=== PATIENT | female | born 1980 | race Caucasian/White ===

== ENCOUNTER 2020-06-27 17:23 | Inpatient (IN) | payer MEDICAID, SELFPAY ==
[2020-06-27 17:39] VITALS: BP 118/82; BP 137/65; PULSE 101; PULSE 134; RESP 16; TEMP 37.3; O2SAT 100; O2SAT 99; BMI 36.8
--- NOTE | 2020-06-27 18:42 | PC.NURSE ---
pt ambulated with steady gait over to the bathroom, provided urine sample and changed over in hospital attire. 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 pt denies pain at this time, pt denies drug use, pt did state having hx of seizures but is not currently on any medications for seizures, last seizure about 9 years ago per pt.
[2020-06-27 18:46] LABS: MANUAL DIFF FLAG NO
--- NOTE | 2020-06-27 18:48 | ECG_ITS ---
Test Reason : OVERDOSE Blood Pressure : / mmHG Vent. Rate : 078 BPM Atrial Rate : 078 BPM P-R Int : 166 ms QRS Dur : 086 ms QT Int : 408 ms P-R-T Axes : 063 052 041 degrees QTc Int : 465 ms Normal sinus rhythm Possible Left atrial enlargement Borderline ECG When compared with ECG of 06-AUG-2016 20:44, No significant change was found Referred By: Anyi Méndez Electronically Signed By:GRISELDA BELLE MD
--- NOTE | 2020-06-27 18:54 | ED.OVERDOSE ---
HPI - Overdose General Chief Complaint: Overdose <JACEK Reid Last Filed: 06/27/20 20:59> Stated Complaint: ?OVERDOSE, 4MG NARCAN <JACEK Reid Last Filed: 06/27/20 20:59> Time Seen by Provider: 06/27/20 18:01 <JACEK Reid - Last Filed: 06/27/20 20:59> Source: patient <JACEK Reid Last Filed: 06/27/20 20:59> Mode of arrival: EMS <JACEK Reid Last Filed: 06/27/20 20:59> History of Present Illness HPI Narrative: Patient is a 39-year-old female who was brought in via EMS after her children called 911 because she was found down in her bedroom. EMS administered Narcan which patient responded to and woke up. Patient states she took 2 Tylenol around 04:00 o'clock then was dancing to you to with her children and the next thing she knew she was on her bedroom floor. She does have a very remote seizure history, has not had one in 9 years and takes no daily seizure medications and no seizure activity was noted by EMS. 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 Today, she denies she has any pain she denies falling and hitting her head, denies headache, lightheadedness, dizziness, chest pain, shortness of breath or vision problems. She denies using any illicit drugs or alcohol. <JACEK Reid - Last Filed: 06/27/20 20:59> Related Data Allergies/Adverse Reactions: Allergies Allergy/AdvReac Type Severity Reaction Status Date / Time No Known Allergies Allergy Verified 06/27/20 17:47 [No Known Allergies*] <JACEK Reid Last Filed: 06/27/20 20:59> Review of Systems Review of Systems: Constitutional: No Weight loss, No Fever, No Chills, No Night Sweats, No Fatigue, No Malaise ENT/Mouth: No Hearing loss, No Ear Pain, No Nasal Congestion, No Sinus Pain, No Hoarseness, No sore throat, No Rhinorrhea, No Swallowing Difficulty Eyes: No Eye Pain, No Swelling, No Redness, No Foreign Body, No Discharge, No Vision Changes Cardiovascular: No Chest Pain, No SOB, No Dyspnea on Exertion, No Orthopnea, No Edema, No Palpitations Respiratory: No Cough, No Sputum, No Wheezing, No Smoke Exposure, No Dyspnea Gastrointestinal: No Nausea, No Vomiting, No Diarrhea, No Constipation, No abdominal Pain, No Hematochezia, No Melena Genitourinary: no irregular bleeding, No Dysuria, No Urinary Frequency, No Hematuria, No Urinary Incontinence, No Urgency, No Flank Pain, No Urinary Flow Changes, No Hesitancy Musculoskeletal: No joint pain, No Myalgias, No Joint Swelling Skin: No Skin Lesions, No rash Neuro: No Weakness, No Numbness, No Paresthesias, + Loss of Consciousness, No Dizziness, No Headache Psych: No Anxiety/Panic, No Depression, No SI/HI/AH/VH, No Social Issues, <JACEK Reid - Last Filed: 06/27/20 20:59> Yes all other systems are reviewed and are negative <JACEK Reid - Last Filed: 06/27/20 20:59> [facility] Past Medical History Attestation statement: The following information was validated with the patient. <JACEK Reid - Last Filed: 06/27/20 20:59> Medical History: Medical History Seizure Stroke TBI (traumatic brain injury) <JACEK Reid - Last Filed: 06/27/20 20:59> Surgical History: Surgical History History of <JACEK Reid - Last Filed: 06/27/20 20:59> Social History Social History: Social History Smoking Status: Light tobacco smoker Use of substances other than those prescribed or required for medical reasons: No Advance Directives: No Advance Directives Information Provided: No <JACEK Reid - Last Filed: 06/27/20 20:59> Physical Exam Vital Signs: Vital Signs: Vital Signs Temp Pulse Resp BP Pulse Ox 06/27/20 20:00 102 H 16 137/68 98 06/27/20 17:39 99.2 F 101 H 16 137/65 99 Body Mass Index 36.8 <JACEK Reid - Last Filed: 06/27/20 20:59> Vital Signs: Vital Signs Temp Pulse Resp BP Pulse Ox 06/27/20 20:00 102 H 16 137/68 98 06/27/20 17:39 99.2 F 101 H 16 137/65 99 Body Mass Index 36.8 <Fredy Taylor MD - Last Filed: 06/27/20 21:34> Const: General: cooperative, healthy appearing, comfortable, no acute distress and well developed <JACEK Reid - Last Filed: 06/27/20 20:59> Orientation/consciousness: patient oriented x3 <JACEK Reid - Last Filed: 06/27/20 20:59> Limitations: other limitations (Right-sided weakness) <JACEK Reid - Last Filed: 06/27/20 20:59> HENMT: Head: Yes normal to inspection, Yes No palpable skull fracture present, Yes normocephalic, Yes atraumatic, No abrasion, No Holloway's sign, No contusion, No laceration, No occipital foramen tenderness and No raccoon eyes <JACEK Reid - Last Filed: 06/27/20 20:59> Ears: hearing grossly normal bilaterally and external ears normal <JACEK Reid - Last Filed: 06/27/20 20:59> General nose exam: Normal external nose present <JACEK Reid Last Filed: 06/27/20 20:59> Face and sinus: Yes normal facial exam <JACEK Reid - Last Filed: 06/27/20 20:59> Mouth: Normal oral and palatal mucosa present <JACEK Reid - Last Filed: 06/27/20 20:59> Eyes: General: appearance normal, both eyes and all related structures <Anyi Méndez AR - Last Filed: 06/27/20 20:59> Pupils: Equal, round and reactive pupils present <Anyi Méndez AR - Last Filed: 06/27/20 20:59> EOM: EOMs intact bilaterally <Anyi Méndez PA - Last Filed: 06/27/20 20:59> Neck: Neck: Yes normal visual inspection, Yes full ROM, Yes trachea midline and Yes supple <Anyi Méndez AR - Last Filed: 06/27/20 20:59> Chest: Chest palpation & inspection: normal inspection of the chest <Anyi Méndez AR - Last Filed: 06/27/20 20:59> Resp: Effort & Inspection: normal respiratory effort and able to speak in complete sentences <Anyi Méndez AR - Last Filed: 06/27/20 20:59> Auscultation: clear to auscultation bilaterally, no crackles, no rales, no rhonchi and wheezes <Anyi Méndez AR - Last Filed: 06/27/20 20:59> Cardio: Rate: regular rate <Anyi Méndez AR - Last Filed: 06/27/20 20:59> Rhythm: regular rhythm <Anyi Méndez AR - Last Filed: 06/27/20 20:59> Heart sounds: normal S1 and S2 <Anyi Méndez AR - Last Filed: 06/27/20 20:59> GI: Inspection: Yes normal to inspection <Anyi Méndez AR - Last Filed: 06/27/20 20:59> Palpation (GI): Soft to palpation and nontender <Anyi Méndez AR - Last Filed: 06/27/20 20:59> Skin: General skin exam: no rashes or lesions noted <Anyi Méndez AR - Last Filed: 06/27/20 20:59> Neuro: General: patient oriented x3 <Anyi Méndez [facility] Last Filed: 06/27/20 20:59> Cranial nerves: Yes Equal, round and reactive pupils present <AnyiJACEK Pedersen - Last Filed: 06/27/20 20:59> Extrem: General: Yes normal to inspection <JACEK Reid - Last Filed: 06/27/20 20:59> Course Course Course Narrative: 39-year-old female who was found down at home, BIBRolo, was given Narcan, responded to it and woke up, does have a remote history of TBI, with residual right-sided weakness and seizure disorder, last one 9 years ago, not on any anti seizure medications Has no complaints or pain. Will get labs, EKG. Labs reveal CPK of 1938 and white blood cell count 16, H&H is 8.1 and 29.3. Despite heart rate being 101 upon arrival, this does not appear to be sepsis, her heart rate currently is 66. Will give 2 L of fluid and read draw CPK, will also get head CT. Upon hospitalist speaking to the patient, she admitted to urinating herself when she woke up, likely seizure, will give 500 mg Keppra and have neuro follow up. Likely admission. Head CT pending, signing out pt to Peyton Bonner PA-C. <JACEK Reid - Last Filed: 06/27/20 20:59> MDM - Overdose Lab Data Attestation: I reviewed the patient's lab results. <JACEK Reid - Last Filed: 06/27/20 20:59> Result diagrams: : 06/27/20 18:40 06/27/20 18:40 <JACEK Reid Last Filed: 06/27/20 20:59> Labs: Lab Results 06/27/20 06/27/20 06/27/20 Range/Units 18:40 18:40 18:40 WBC 16.0 H (4.8-10.8) X10*3/uL RBC 4.12 L (4.20-5.50) X10*6/uL Hgb 8.1 L (12.0-16.0) g/dl Hct 29.3 L (37-47) % MCV 71.1 L (80-98) fL MCH 19.7 L (27.0-33.0) pg MCHC 27.6 L (31.0-35.0) g/dl RDW 18.6 H (11.0-16.0) % Plt Count 405 H (160-400) X10*3/uL MPV 10.0 (9.4-12.3) fL Immature Gran % (Auto) 0.6 H (0.0-0.4) % Neut % (Auto) 87.5 H (45-73) % Lymph % (Auto) 5.5 L (20-40) % Travis % (Auto) 5.3 (2-11) % Eos % (Auto) 0.9 (0-4) % Baso % (Auto) 0.2 (0-2) % Lymph # (Auto) 0.9 L (1.2-4.9) X10*3/uL Travis # (Auto) 0.8 (0.1-1.2) X10*3/uL Eos # (Auto) 0.2 (0.0-0.4) X10*3/uL Baso # (Auto) 0.0 (0.0-0.2) X10*3/uL Abs Immat Gran (auto) 0.10 H (0.00-0.03) X10*3/uL Absolute Neuts (auto) 14.0 H (2.0-8.3) X10*3/uL Absolute Nucleated RBC 0.000 (0.0-0.012) X10*3/uL Nucleated RBC % (auto) 0.0 (0.0-0.2) /100WBC Sodium 138 (135-145) mmol/L Potassium 4.2 (3.3-5.1) mmol/l Chloride 102 (96-108) mmol/L Carbon Dioxide 27 (22-29) mmol/L Anion Gap 13 (12-20) BUN 15 (9-16) mg/dL Creatinine 0.78 (0.5-1.4) mg/dL Estim Creat Clear Calc 104.7 Estimated GFR > 60 Random Glucose 73 (60-115) mg/dL Calcium 8.8 (8.4-10.2) mg/dL Total Bilirubin 0.5 (0.0-1.0) mg/dL AST 67 H (5-31) U/L ALT 24 (0-31) U/L Alkaline Phosphatase 82 (39-117) U/L Total Creatine Kinase 1938 H (26-140) U/L Total Protein 7.5 (6.5-8.0) g/dL Albumin 4.3 (3.5-5.0) g/dL Urine Test (NEGATIVE) Salicylates < 5.0 L (15-30) mg/dL Urine Opiates Screen POSITIVE H (Not Detect) Acetaminophen < 1 (<30) mcg/mL Ur Barbiturates Screen Not Detected (Not Detect) Ur Phencyclidine Scrn Not Detected (Not Detect) Ur Amphetamines Screen Not Detected (Not Detect) U Benzodiazepines Scrn Not Detected (Not Detect) Urine Cocaine Screen Not Detected (Not Detect) U Marijuana (THC) Screen Not Detected (Not Detect) Ethyl Alcohol mg/dL 06/27/20 06/27/20 Range/Units 18:40 18:40 WBC (4.8-10.8) X10*3/uL RBC (4.20-5.50) X10*6/uL Hgb (12.0-16.0) g/dl Hct (37-47) % MCV (80-98) fL MCH (27.0-33.0) pg MCHC (31.0-35.0) g/dl RDW (11.0-16.0) % Plt Count (160-400) X10*3/uL MPV (9.4-12.3) fL Immature Gran % (Auto) (0.0-0.4) % Neut % (Auto) (45-73) % Lymph % (Auto) (20-40) % Travis % (Auto) (2-11) % Eos % (Auto) (0-4) % Baso % (Auto) (0-2) % Lymph # (Auto) (1.2-4.9) X10*3/uL Travis # (Auto) (0.1-1.2) X10*3/uL Eos # (Auto) (0.0-0.4) X10*3/uL Baso # (Auto) (0.0-0.2) X10*3/uL Abs Immat Gran (auto) (0.00-0.03) X10*3/uL Absolute Neuts (auto) (2.0-8.3) X10*3/uL Absolute Nucleated RBC (0.0-0.012) X10*3/uL Nucleated RBC % (auto) (0.0-0.2) /100WBC Sodium (135-145) mmol/L Potassium (3.3-5.1) mmol/l Chloride (96-108) mmol/L Carbon Dioxide (22-29) mmol/L Anion Gap (12-20) BUN (9-16) mg/dL Creatinine (0.5-1.4) mg/dL Estim Creat Clear Calc Estimated GFR Random Glucose (60-115) mg/dL Calcium (8.4-10.2) mg/dL Total Bilirubin (0.0-1.0) mg/dL AST (5-31) U/L ALT (0-31) U/L Alkaline Phosphatase (39-117) U/L Total Creatine Kinase (26-140) U/L Total Protein (6.5-8.0) g/dL Albumin (3.5-5.0) g/dL Urine Test NEGATIVE (NEGATIVE) Salicylates (15-30) mg/dL Urine Opiates Screen (Not Detect) Acetaminophen (<30) mcg/mL Ur Barbiturates Screen (Not Detect) Ur Phencyclidine Scrn (Not Detect) Ur Amphetamines Screen (Not Detect) U Benzodiazepines Scrn (Not Detect) Urine Cocaine Screen (Not Detect) U Marijuana (THC) Screen (Not Detect) Ethyl Alcohol < 10 mg/dL <JACEK Reid - Last Filed: 06/27/20 20:59> Lab Results 06/27/20 06/27/20 06/27/20 Range/Units 18:40 18:40 18:40 WBC 16.0 H (4.8-10.8) X10*3/uL RBC 4.12 L (4.20-5.50) X10*6/uL Hgb 8.1 L (12.0-16.0) g/dl Hct 29.3 L (37-47) % MCV 71.1 L (80-98) fL MCH 19.7 L (27.0-33.0) pg MCHC 27.6 L (31.0-35.0) g/dl RDW 18.6 H (11.0-16.0) % Plt Count 405 H (160-400) X10*3/uL MPV 10.0 (9.4-12.3) fL Immature Gran % (Auto) 0.6 H (0.0-0.4) % Neut % (Auto) 87.5 H (45-73) % Lymph % (Auto) 5.5 L (20-40) % Travis % (Auto) 5.3 (2-11) % Eos % (Auto) 0.9 (0-4) % Baso % (Auto) 0.2 (0-2) % Lymph # (Auto) 0.9 L (1.2-4.9) X10*3/uL Travis # (Auto) 0.8 (0.1-1.2) X10*3/uL Eos # (Auto) 0.2 (0.0-0.4) X10*3/uL Baso # (Auto) 0.0 (0.0-0.2) X10*3/uL Abs Immat Gran (auto) 0.10 H (0.00-0.03) X10*3/uL Absolute Neuts (auto) 14.0 H (2.0-8.3) X10*3/uL Absolute Nucleated RBC 0.000 (0.0-0.012) X10*3/uL Nucleated RBC % (auto) 0.0 (0.0-0.2) /100WBC Sodium 138 (135-145) mmol/L Potassium 4.2 (3.3-5.1) mmol/l Chloride 102 (96-108) mmol/L Carbon Dioxide 27 (22-29) mmol/L Anion Gap 13 (12-20) BUN 15 (9-16) mg/dL Creatinine 0.78 (0.5-1.4) mg/dL Estim Creat Clear Calc 104.7 Estimated GFR > 60 Random Glucose 73 (60-115) mg/dL Calcium 8.8 (8.4-10.2) mg/dL Total Bilirubin 0.5 (0.0-1.0) mg/dL AST 67 H (5-31) U/L ALT 24 (0-31) U/L Alkaline Phosphatase 82 (39-117) U/L Total Creatine Kinase 1938 H (26-140) U/L Total Protein 7.5 (6.5-8.0) g/dL Albumin 4.3 (3.5-5.0) g/dL Urine Test (NEGATIVE) Salicylates < 5.0 L (15-30) mg/dL Urine Opiates Screen POSITIVE H (Not Detect) Acetaminophen < 1 (<30) mcg/mL Ur Barbiturates Screen Not Detected (Not Detect) Ur Phencyclidine Scrn Not Detected (Not Detect) Ur Amphetamines Screen Not Detected (Not Detect) U Benzodiazepines Scrn Not Detected (Not Detect) Urine Cocaine Screen Not Detected (Not Detect) U Marijuana (THC) Screen Not Detected (Not Detect) Ethyl Alcohol mg/dL 06/27/20 06/27/20 Range/Units 18:40 18:40 WBC (4.8-10.8) X10*3/uL RBC (4.20-5.50) X10*6/uL Hgb (12.0-16.0) g/dl Hct (37-47) % MCV (80-98) fL MCH (27.0-33.0) pg MCHC (31.0-35.0) g/dl RDW (11.0-16.0) % Plt Count (160-400) X10*3/uL MPV (9.4-12.3) fL Immature Gran % (Auto) (0.0-0.4) % Neut % (Auto) (45-73) % Lymph % (Auto) (20-40) % Travis % (Auto) (2-11) % Eos % (Auto) (0-4) % Baso % (Auto) (0-2) % Lymph # (Auto) (1.2-4.9) X10*3/uL Travis # (Auto) (0.1-1.2) X10*3/uL Eos # (Auto) (0.0-0.4) X10*3/uL Baso # (Auto) (0.0-0.2) X10*3/uL Abs Immat Gran (auto) (0.00-0.03) X10*3/uL Absolute Neuts (auto) (2.0-8.3) X10*3/uL Absolute Nucleated RBC (0.0-0.012) X10*3/uL Nucleated RBC % (auto) (0.0-0.2) /100WBC Sodium (135-145) mmol/L Potassium (3.3-5.1) mmol/l Chloride (96-108) mmol/L Carbon Dioxide (22-29) mmol/L Anion Gap (12-20) BUN (9-16) mg/dL Creatinine (0.5-1.4) mg/dL Estim Creat Clear Calc Estimated GFR Random Glucose (60-115) mg/dL Calcium (8.4-10.2) mg/dL Total Bilirubin (0.0-1.0) mg/dL AST (5-31) U/L ALT (0-31) U/L Alkaline Phosphatase (39-117) U/L Total Creatine Kinase (26-140) U/L Total Protein (6.5-8.0) g/dL Albumin (3.5-5.0) g/dL Urine Test NEGATIVE (NEGATIVE) Salicylates (15-30) mg/dL Urine Opiates Screen (Not Detect) Acetaminophen (<30) mcg/mL Ur Barbiturates Screen (Not Detect) Ur Phencyclidine Scrn (Not Detect) Ur Amphetamines Screen (Not Detect) U Benzodiazepines Scrn (Not Detect) Urine Cocaine Screen (Not Detect) U Marijuana (THC) Screen (Not Detect) Ethyl Alcohol < 10 mg/dL <Fredy Taylor MD - Last Filed: 06/27/20 21:34> ECG Data Attestation: I personally reviewed and interpreted this ECG as follows: <JACEK Reid - Last Filed: 06/27/20 20:59> ECG interpretation date: 06/27/20 <JACEK Reid - Last Filed: 06/27/20 20:59> ECG interpretation time: 20:58 <JACEK Reid - Last Filed: 06/27/20 20:59> Prior ECG tracings: not available for review <JACEK Reid - Last Filed: 06/27/20 20:59> Interpretation: NSR 78bpm, qrs 86ms, QTc 465, Dr Taylor signed off on it <JACEK Reid - Last Filed: 06/27/20 20:59> Discharge Plan Discharge Clinical Impression: Seizure Rhabdomyolysis Qualifiers: Rhabdomyolysis type: traumatic Encounter type: initial encounter Qualified Code(s): T79.6XXA - Traumatic ischemia of muscle, initial encounter <AJCEK Reid - Last Filed: 06/27/20 20:59> Patient Disposition: Admitted As Inpatient <JACEK Reid - Last Filed: 06/27/20 20:59>
[2020-06-27 19:07] LABS: Basophils Percent Auto 0.2 % (0-2); Eosinophils Absolute Auto 0.2 X10*3/uL (0.0-0.4); Eosinophils Percent Auto 0.9 % (0-4); Hematocrit 29.3 % (37-47); Hemoglobin 8.1 g/dl (12.0-16.0); Imm Gran Pct Auto 0.6 % (0.0-0.4); Lymphocytes Absolute Auto 0.9 X10*3/uL (1.2-4.9); Lymphocytes Percent Auto 5.5 % (20-40); Mean Corpuscular HGB Conc 27.6 g/dl (31.0-35.0); Mean Corpuscular Hemoglobin 19.7 pg (27.0-33.0); Mean Corpuscular Volume 71.1 fL (80-98); Monocytes Absolute Auto 0.8 X10*3/uL (0.1-1.2); Monocytes Percent Auto 5.3 % (2-11); Neutrophils Percent Auto 87.5 % (45-73); Platelet Count 405 X10*3/uL (160-400); Red Blood Count 4.12 X10*6/uL (4.20-5.50); Red Cell Distribution Width 18.6 % (11.0-16.0)
[2020-06-27 19:09] LABS: Ethanol < 10 mg/dL
[2020-06-27 19:12] LABS: Amphetamine Screen Urine Not Detected (Not Detect); Barbiturates, Urine Not Detected (Not Detect); Benzodiazepines Screen Urine Not Detected (Not Detect); Cannabinoid Screen Urine Not Detected (Not Detect); Cocaine Screen Urine Not Detected (Not Detect); Opiate Screen Urine POSITIVE (Not Detect); Phencyclidine Screen Urine Not Detected (Not Detect)
[2020-06-27 19:14] LABS: Acetaminophen LAB < 1 mcg/mL (<30); Alanine Aminotransferase 24 U/L (0-31); Albumin Level 4.3 g/dL (3.5-5.0); Alkaline Phosphatase 82 U/L (39-117); Anion Gap 13 (12-20); Aspartate Amino Transferase 67 U/L (5-31); Bilirubin Total 0.5 mg/dL (0.0-1.0); Blood Urea Nitrogen 15 mg/dL (9-16); Calcium 8.8 mg/dL (8.4-10.2); Carbon Dioxide 27 mmol/L (22-29); Chloride 102 mmol/L (96-108); Creatinine Clr Calc Pharmacy 104.7; Estimated Glomerular Filt Rate > 60; Glucose Random 73 mg/dL (60-115); Potassium 4.2 mmol/l (3.3-5.1); Salicylate < 5.0 mg/dL (15-30); Sodium 138 mmol/L (135-145); Total Protein 7.5 g/dL (6.5-8.0)
--- NOTE | 2020-06-27 19:37 | PC.NURSE ---
Pt resting quietly in stretcher and denies any complaints at this time. Pt awake, alert, calm and cooperative. Respirations easy, n/l.
[2020-06-27 20:00] VITALS: BP 137/68; PULSE 102; RESP 16; O2SAT 98
--- NOTE | 2020-06-27 20:10 | CT_ITS ---
EXAMINATION: CT HEAD WITHOUT CONTRAST CLINICAL INFORMATION: Loss of consciousness COMPARISON: None TECHNIQUE: Contiguous axial imaging was performed from the skull base to vertex without intravenous administration of contrast. This CT examination was performed using dose optimization techniques as appropriate, variously including the following: *Automated exposure control *Adjustment of mA and/or kV according to patient size (this includes techniques or standardized protocols for targeted exams where dose is matched to indication/reason for exam; i.e. extremities or head) *Use of iterative reconstruction technique DLP: 737 mGy-cm FINDINGS: There is focal encephalomalacia in the left insular cortex and adjacent white matter tracts. There is compensatory dilatation of the left lateral ventricle. There is no evidence of acute intracranial hemorrhage or acute territorial infarction. No abnormal mass effect or midline shift is seen. Lundberg to white matter differentiation is well preserved. No extra-axial fluid collections are identified. The osseous structures and soft tissues are normal. The mastoid air cells and visualized portions of the paranasal sinuses are well aerated. 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 There is no acute intracranial abnormality.
[2020-06-27] MEDS: 0.9 % Sodium Chloride 1,000 ML 999 ML IVCONT ×2 (20:41→23:07)
[2020-06-27 20:48] LABS: UPreg QC Valid YES; Urine Pregnancy NEGATIVE (NEGATIVE)
[2020-06-27] MEDS: levETIRAcetam in NaCl (iso-os) 500 MG/100 ML PIGGYBACK 400 MG IV (21:12)
--- NOTE | 2020-06-27 21:20 | PC.NURSE ---
PT MEDICATED PER EMAR.
--- NOTE | 2020-06-27 21:46 | PC.NURSE ---
SPOKE WITH PHARMACY AND THEY WILL CALL PT'S PHARMACY IN AM REGARDING SEIZURE MEDS.
--- NOTE | 2020-06-27 22:38 | PC.NURSE ---
[facility] IN ROOM WITH PT.
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
--- NOTE | 2020-06-27 23:42 | PC.NURSE ---
FLOOR UNABLE TO TAKE REPORT, WILL RETURN CALL.
--- NOTE | 2020-06-27 23:52 | PC.NURSE ---
report to INOCENCIA Morales. Pt to floor in [facility].
[2020-06-28] VITALS (7 sets, daily range): BP systolic 113–160; BP diastolic 49–78; PULSE 56–95; RESP 16–19; TEMP 35.8–37.1; O2SAT 92–99; BMI 36.8
--- NOTE | 2020-06-28 | CT_ITS ---
EXAMINATION: CT ANGIOGRAM HEAD CT ANGIOGRAM NECK CLINICAL INFORMATION: Syncope. Loss of consciousness. COMPARISON: CT head from 06/27/2020. TECHNIQUE: Initial noncontrast chief operator hydroformer imaging of the head and neck was performed. Noncontrast head CT was also performed. Test bolus sequences followed by intravenous administration 70 mL of Omnipaque 350. Helical imaging was performed in the axial plane from the aortic arch to the skull vertex. Delayed postcontrast imaging of the head was also performed. The data was processed at the chief ultrasound technologist's workstation for generation of MIP sequences. Angled MIPs and volume rendered reformatted images were also generated at an offline 3D workstation. Stenoses are assessed in accordance with NASCET criteria unless otherwise indicated. DLP: 2598 mGy-cm FINDINGS: CT Head: There is no evidence of acute intracranial hemorrhage or edematous territorial infarction. Chronic appearing encephalomalacia of the left insula, lentiform nucleus, and kearns radiata. There is no additional abnormal attenuation within the brain parenchyma. No new loss of kat-white matter differentiation. Ex vacuo dilatation of the left lateral ventricle. Otherwise, the ventricles are normal in size and configuration. No evidence for obstructive hydrocephalus. Minimal leftward midline shift (0.1 cm). No abnormal mass effect. No extra-axial fluid collections. No pathologic intra-axial enhancement or regional oligemia. No acute soft tissue or osseous abnormalities. Multiple periapical lucencies and regions of sclerosis associated with the mandibular and maxillary teeth. Moderate mucosal thickening of the paranasal sinuses. Mucous retention cyst within the right maxillary sinus. The mastoid air cells and middle ear cavities remain well aerated. CT Neck: Mild generalized enlargement of the thyroid gland. The remaining cervical soft tissues are within normal limits. Straightening of the normal cervical lordosis. Moderate degenerative disc disease at C5-C6 and C6-C7. CT Upper Chest: The visualized lung apices and upper mediastinum are within normal limits. Neck CTA: Aortic Arch: Normal contour and caliber. Classic 3 vessel branching pattern of the aortic arch. Great Vessel Origins: No significant stenosis of the branch origins. Right Common Carotid Artery: Normal opacification without focal stenosis or occlusion. Cervical Right Internal Carotid Artery: Normal opacification without focal stenosis or occlusion. Left Common Carotid Artery: Normal opacification without focal stenosis or occlusion. Cervical Left Internal Carotid Artery: The left ICA is diminutive relative to the right opacifies normally without occlusion. Cervical Right Vertebral Artery: Normal opacification without focal stenosis or occlusion. Cervical Left Vertebral Artery: Dominant. Normal opacification without focal stenosis or occlusion. Brain CTA: Intracranial Internal Carotid Arteries: The left ICA is diminutive with concomitant small caliber of the carotid canal. There are coarse calcifications of the cavernous segment of the left ICA. There remains at least partial opacification of diminutive paraophthalmic and supraclinoid segments of the left ICA. Normal contrast opacification of the petrous, cavernous, paraophthalmic, and supraclinoid segments of the right ICA without focal stenosis. Right Anterior Cerebral Artery: Normal A1 segment. Normal opacification of the distal segments of the ÓSCAR. Left Anterior Cerebral Artery: The A1 segment is diminutive. Normal opacification of the distal segments of the ÓSCAR. Anterior Communicating Artery: Normal. Right Middle Cerebral Artery: Normal opacification of the M1 segment of the MCA without focal stenosis or occlusion. Normal arborization of the distal segments. Left Middle Cerebral Artery: The M1 segment is diminutive on the left with prominent leptomeningeal collateralization. The distal MCA branches may be slightly diminutive relative to the right but are otherwise relatively well opacified. Right Vertebral Artery: Normal opacification of the V4 segment. Normal opacification of the proximal segments of the posterior inferior cerebellar artery. Left Vertebral Artery: Normal opacification of the V4 segment. The posterior inferior cerebellar artery is not well opacified; however, there is no CT evidence of acute occlusion. Basilar Artery: Normal opacification without focal stenosis or occlusion. Normal appearance of the proximal superior cerebellar arteries. There is a mildly irregular 0.2 cm excrescence arising from the right anterior aspect of the basilar tip that projects superiorly and anteriorly (image [id number]). Right Posterior Cerebral Artery: The P1 segment is diminutive. origin of the LABORER STORES with robust opacification of the posterior communicating artery. Normal opacification of the distal segments of the LABORER ST[employer]ES. Left Posterior Cerebral Artery: Normal P1 segment. Normal opacification of the distal segments of the LABORER ST[employer]ES. Normal opacification of the superior sagittal, straight, transverse, and sigmoid sinuses. CT/CT angio head neck IMPRESSION: 1. Chronic appearing infarct of the left-sided insula, lentiform nucleus, and kearns radiata. No evidence of acute intracranial hemorrhage or edematous territorial infarction. 2. There appears to be long-standing diminution of the left ICA (concordant decreased caliber of the carotid canal). Moderate calcification of the cavernous segment of the left ICA without occlusion. The paraophthalmic and supraclinoid segments of the left ICA are diminutive opacified. Furthermore, the M1 segment of the left MCA is diminutive with prominent leptomeningeal collateral formation. The etiology of these changes is nonspecific but presents in a left-sided moyamoya-like pattern. 3. 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 Of note, there is origin of the right posterior cerebral artery. It is possible that this excrescence represents an infundibulum; however, the remainder of the P1 segment of the right LAB[employer]ER [employer]ES is diminutive. 4. Otherwise, CTA of the head and neck without proximal occlusion or flow-limiting stenosis. 5. Mild generalized prominence of the thyroid gland. Recommend correlation with thyroid function testing. Thyroid ultrasound may be considered if clinically indicated. 6. Mandibular and maxillary odontogenic disease.
[2020-06-28] MEDS: Lactated Ringers 1,000 ML 100 ML IVCONT ×3 (00:52→19:55)
[2020-06-28] MEDS: Enoxaparin Sodium 40 MG/0.4 ML SYRINGE SUBCUT (00:52)
[2020-06-28] MEDS: 0.9 % Sodium Chloride Flush 3 ML SYRINGE IVFLUSH ×2 (00:53→08:11)
[2020-06-28 01:08] LABS: SARS COV2 PCR INHOUSE NEGATIVE (Negative)
[2020-06-28] MEDS: Flu Vacc QS2020-21(6mos up)/PF 0.5 ML SYRINGE IM (01:16)
[2020-06-28 01:24] LABS: Ferritin 3 ng/mL (10-250)
[2020-06-28 02:30] LABS: Appearance Urine CLEAR; Color Urine YELLOW; Glucose Urine UA 250 MG/DL (NEG); Leukocyte Esterase Urine NEG (NEG); Nitrite Urine NEG (NEG); Specific Gravity - Urine 1.025 (1.005-1.025); Urine Blood TRACE (NEG); Urine Ketones NEG (NEG); Urine Protein 2+ MG/DL (NEG-TRACE)
[2020-06-28 02:32] LABS: Bacteria Urine TRACE /LPF; RBC Urine 0-2 /HPF (0); Squamous Epithelial Cell Urine 2+ /LPF; WBC Urine 0-2 /HPF (0-4)
[2020-06-28 06:39] LABS: MANUAL DIFF FLAG NO
[2020-06-28 06:50] LABS: Basophils Percent Auto 0.4 % (0-2); Eosinophils Absolute Auto 0.3 X10*3/uL (0.0-0.4); Eosinophils Percent Auto 3.8 % (0-4); Hematocrit 27.5 % (37-47); Hemoglobin 7.4 g/dl (12.0-16.0); Imm Gran Abs Auto 0.05 X10*3/uL (0.00-0.03); Imm Gran Pct Auto 0.6 % (0.0-0.4); Lymphocytes Absolute Auto 2.5 X10*3/uL (1.2-4.9); Lymphocytes Percent Auto 31.8 % (20-40); Mean Corpuscular HGB Conc 26.9 g/dl (31.0-35.0); Mean Corpuscular Volume 70.5 fL (80-98); Mean Platelet Volume 10.8 fL (9.4-12.3); Monocytes Absolute Auto 0.6 X10*3/uL (0.1-1.2); Monocytes Percent Auto 7.8 % (2-11); Neutrophils Absolute Auto 4.4 X10*3/uL (2.0-8.3); Neutrophils Percent Auto 55.6 % (45-73); Platelet Count 363 X10*3/uL (160-400); Red Cell Distribution Width 18.7 % (11.0-16.0)
[2020-06-28 07:19] LABS: Anion Gap 12 (12-20); Blood Urea Nitrogen 9 mg/dL (9-16); Calcium 8.3 mg/dL (8.4-10.2); Carbon Dioxide 25 mmol/L (22-29); Chloride 102 mmol/L (96-108); Creatinine Clr Calc Pharmacy 116.7; Estimated Glomerular Filt Rate > 60; Glucose Random 89 mg/dL (60-115); Potassium 4.5 mmol/l (3.3-5.1); Sodium 134 mmol/L (135-145)
[2020-06-28] MEDS: Acetaminophen 325 MG TABLET 650 MG PO ×2 (10:00→17:43)
[2020-06-28] MEDS: ondansetron HCL 4 MG/2 ML VIAL IVPUSH (10:03)
--- NOTE | 2020-06-28 12:11 | MHC.CM.PN ---
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 per documentation by the er staff , SHE WAS BROUGHT TO THE ER BY THE EMS ,SECONDARY TO PASSING OUT ,NARCON WAS GIVEN BY EMS , SHE WAS ADMITTED INPATIENT WITH DIAGNOSIS OF SEIZURE VS OPIOD OVERDOSE , HER DRUG SCREEN SHOWED SALICYLATES <5.0 AND POSITIVE FOR OPIATES. THE E.R PHYSICIANS CERTIFIED PROSTHETIST FILLED REPORT TO D[facility]. PATIENT INFOMRED ME THAT [facility] CAME TO SEE HER LATE LAST EVENING AND TOLD HER THAT A REPORT HAD BEEN FILLED AND THE HER FOUR CHILDREN AGES (17-14-11-8 YRS OLD WERE TAKEN INTO [facility]OSTER HOMES. SHE REPORTED THAT SHE LIVES WITH HER FOUR CHILDREN AND HER TWO ADULT CHILDREN LIVE OUTSIDE THE HOME,, SHE IS INDEPENDENT IN ALL ADLS AND MOBILITY, WORKS AT [employer] IN [place], SHE HAS NO VNA ,NO DME OR PERSONAL CARE ASSISTANCE IN THE HOME SHE ALSO ALMA ANY HISTORY OF ANXIETY ,DEPRESSION OR PTSD, SHE REPORTS THAT SHE HAS NOT HAD A SEIZURE IN A VERY LONG TIME,SHE SMOKES CIGARRETES OCCASIONALY AND DENIES ETOH,OR STREET DRUGS . SHE IS NOT BEING FOLLOWED BY A NEUROLOGIST , OR ANY MENTAL HEALTH COUNSELING, DISCHARGE PLAN HOME WITH ANTICIPATED NO SERVICES [facility]SP[facility] FAMILY ER -FILED REPORT TO [facility]-CHILDREN IN [facility] CARE POSITIVE OPIATES IN URINE DRUG SCREE , INIATED REFERRAL TO THE CARES TEAM PCP UNKNOWN NAME AT THE [facility]
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
--- NOTE | 2020-06-28 13:30 | HO.PM.IMPN ---
Subjective Subjective Date of Service: 06/28/20 Interval History: Seen in f/u for seizure, rhabdo. No more seizure Review of Systems no fever No seizure. Physical Exam Vital Signs: Vital Signs: Vital Signs Temp Pulse Resp BP Pulse Ox 06/28/20 11:55 98.5 F 58 18 144/60 H 99 06/28/20 08:00 97.0 F 56 18 125/60 92 06/28/20 03:14 97.6 F 95 19 113/57 L 97 06/28/20 00:00 98.2 F 77 19 121/54 L 99 06/27/20 20:00 102 H 16 137/68 98 06/27/20 17:39 99.2 F 101 H 16 137/65 99 Body Mass Index 36.8 Constitutional Awake and Alert, No apparent distress Neck Supple, No lymphadenopathy Cardiovascular RRR, No M/R/G, S1 S2, No S3 S4, No pedal edema Respiratory Lungs clear, No respiratory distress Gastrointestinal Non tender, Non-distended Skin No rash Neurological Alert & oriented x3 Psychological Appropriate affect Objective Data Current Medications Generic Name Dose Route Start Last Admin Trade Name Tejasq PRN Reason Stop Dose Admin Acetaminophen 650 mg 06/27/20 23:56 06/28/20 10:00 Acetaminophen 325 Mg Tablet PO 650 mg Q6H PRN Administration Pain, Mild (Pain Scale 1-3) Enoxaparin Sodium 40 mg 06/27/20 23:56 06/28/20 00:52 Enoxaparin Sodium 40 Mg/0.4 Ml Syringe SUBCUT 40 mg Q24H CHARIS Administration Lactated Ringer's 1,000 mls @ 100 mls/hr 06/27/20 23:56 06/28/20 10:03 Lr IVCONT 100 mls/hr .Q10H CHARIS Administration Ondansetron HCl 4 mg 06/27/20 23:56 06/28/20 10:03 Ondansetron Hcl 4 Mg/2 Ml Vial IVPUSH 4 mg Q8H PRN Administration Nausea and Vomiting Pharmacy Consult 1 each 06/27/20 20:46 Consult Rx Perform Med Rec MISCELLANE ONCE PRN Consult order Sodium Chloride 3 ml 06/28/20 00:00 06/28/20 08:11 0.9 % Sodium Chloride Flush 3 Ml Syringe IVFLUSH 3 ml QSHIFT CHARIS Administration Labs CBC & Chem 7: 06/28/20 06:13 06/28/20 06:13 Assessment and Plan (1) Syncope: Status: Acute (2) Rhabdomyolysis: Status: Acute (3) Stroke: Status: Acute (4) Seizure: Status: Acute Assessment and Plan: 39-year-old female with a history of traumatic brain injury, stroke, seizures who presents to the hospital with a syncopal episode. # Seizure--likely from scar from old stroke -Outpatient EEG -Starting Keppra 250 bid per neuro recommendation # rhabdomyolysis d/t seuzure. CK is coming down with IVF, repeat level in am if still here, encourage oral water as well #Old stroke--no particular meds DVT prophylaxis Lovenox
--- NOTE | 2020-06-28 13:59 | MHC.CARE ---
Addiction Consult Service note: This automobile and property underwriter met with the 39 year old Kosovan speaking female in bed 386 to discuss the situation that occurred prior to her ED visit. Patient reports numerous life stressors related to her four children and her medical conditions. Patient reports that she has scoliosis and has significant pain in her back, knee and ankle. Patient works at [employer] and is constantly on her feet. Patient reports she worked 7 days last week and that her kids do not help out at all around her home. Patient reports her children do not listen to her and that they are struggling with the virtual schooling. Patient reports she gets her children set up with class before she leaves for work but that they don't continue once she leaves. Patient also reports that she puts her kids to bed but that they get up after she falls asleep and that they stay up late into the night. Patient reports that [facility] has taken her children but that her kids need to learn that she is serious when she talks about consequences and that maybe this experience will teach them to listen to her more often. Patient reports that she had gotten home from work and got into an argument with her daughter. Patient reports that she was in a lot of pain and that she was angry because of her daughter so she decided to take a shower. Patient reports that she took some Tylenol that she got at [employer] prior to taking a shower. Patient reports after she got out of the shower and reached for the towel she started to have a seizure. Patient denies heroin use and also denies using narcotics. Patient does not know why she would test positive for opiates. Patient had also met with a Boiler Shop Mechanic in the ED shortly after arriving and she also denied use at that point. Patient reports she has a strong support system including friends from work and her parents.
--- NOTE | 2020-06-28 15:20 | MHC.CM.PN ---
nurse career transition specialist note patient was seen by a social media campaign manager formthe cares team, she denies needing any motor coach tour operator and denied using opiods. she reported that she has family,friends and does not need additional support. career transition specialist to continue to follow. for any changing discharge needs
[2020-06-28] MEDS: iohexoL 350 MG/ML 100 ML INFUS..BTL IV (15:47)
[2020-06-29] MEDS: Enoxaparin Sodium 40 MG/0.4 ML SYRINGE SUBCUT (00:06)
[2020-06-29 03:45] VITALS: BP 150/66; PULSE 59; RESP 18; TEMP 37.1; O2SAT 95
[2020-06-29] MEDS: Lactated Ringers 1,000 ML 100 ML IVCONT (04:49)
[2020-06-29 07:27] VITALS: BP 137/58; PULSE 72; RESP 19; TEMP 36.1; O2SAT 97
[2020-06-29] MEDS: Acetaminophen 325 MG TABLET 650 MG PO (07:32)
--- NOTE | 2020-06-29 09:08 | PM.DS ---
DS: Providers Provider Date of admission: 06/27/20 22:13 Primary care physician: [facility] Consults: 06/27/20 23:56 Consult to Neurology Routine Consulting Provider: [facility] Reason for consultation: pssible seizure Has provider been notified: No 06/28/20 12:41 Consult to Care Team Stat Comment: Reason for consultation: f/u-er report,positive urine for opiates,/report filled by er to [facility] DS: Diagnosis Discharge Diagnosis (1) Seizure: Status: Acute DS: Summary Hospital Course Hospital Course: HPI by Dr. Chatman. 39-year-old female with past medical history of traumatic brain injury, for total episodes of seizures in the past, stroke, who presents to the hospital with complaints of passing out. Patient reports that the last thing she remembers was dancing with her children, going to her room to take a shower and passing out. She woke up in EMS and realizing that she has soiled her pants with P. But does not remember any other detail from the incident. Patient reports that she had nausea when she came about, may have been slightly confused on regaining her consciousness but rib denies any symptoms prior to passing out. She said that she had back pain, took Tylenol after work and went home to her kids. She denies having any chest pain, no shortness of breath, no abdominal pain no diarrhea constipation. , patient reports no urinary symptoms , including no urgency frequency or dysuria prior to loss of control. denies any head injury. According to EMS patient was given a dose of Narcan At home and she had return of consciousness. although patient does not remember. review of system otherwise negative on arrival to the ED patient hemodynamically stable with no significant abnormal vitals labs are significant for WBC count of 16, hemoglobin of 8.1, ( 10 in 2016), hematocrit of 29.3, otherwise unremarkable. Labs are also remarkable CPK that is 1138, and UDS positive for opioids head CT shows old infarct involving the left insular cortex and adjacent white matter tracts, with no acute intracranial abnormality Hospital course: She was admitted in the hospital and hydrated and did not had any further seizure. She has had seizures in the past but is not medications chronically. She was seen by Dr. Espinoza and recommend Keppra 250 mg bid and outpatient EEG. 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 Espinoza in the office Time Spent with Patient Time attestation: Total time spent providing and/or coordinating discharge services: Physical Exam Vital Signs: Vital Signs: Vital Signs Temp Pulse Resp BP Pulse Ox 06/29/20 07:27 97.0 F 72 19 137/58 L 97 06/29/20 03:45 98.8 F 59 18 150/66 H 95 06/28/20 23:34 96.4 F L 72 16 149/58 H 94 06/28/20 18:53 97.8 F 70 19 122/49 L 97 06/28/20 15:59 98.7 F 62 19 160/78 H 98 06/28/20 11:55 98.5 F 58 18 144/60 H 99 Body Mass Index 36.8 Constitutional Awake and Alert, No apparent distress Neck Supple, No lymphadenopathy Cardiovascular RRR, No M/R/G, S1 S2, No S3 S4, No pedal edema Respiratory Lungs clear, No respiratory distress Gastrointestinal Non tender, Non-distended Skin No rash Neurological Alert & oriented x3, right sided weakness--old Psychological Appropriate affect Discharge Plan Discharge Anticipated Discharge Date/Time: 06/29/20 09:04 Patient Disposition: Home, Self-Care Referrals: [facility] [Primary Care Provider] - Discharge Medications: New levetiracetam [Keppra] 250 mg tablet 250 mg PO BID Qty: 60 RF: 0 Discharge Orders: Discharge Order (Routine); Ordered 06/29/20 Ordered By: Naveed Nino Diet: advance to your usual diet Activity on Discharge: Walk with crutches Discharge Date/Time: 06/29/20 16:22 Other Ambulatory Orders: EEG ambulatory (Routine) Timeframe: 1 Week Facility: [facility] - Location: Radiology Ordered By: Naveed Nino Visit Report Forms: Patient Portal Discharge page Care Plan Goals: Control seizure Health Concerns: complication from seizure Plan of Treatment: Take Keppra as recommended and follow up with your Doctor in a week. Ask your Doctor to make referal to the Neurologist, call Dr. Espinoza's office for follow up Address: [address] [place] [address] [place] [address]
[2020-06-29] MEDS: levETIRAcetam 250 MG TABLET PO (10:39)
--- NOTE | 2020-06-29 11:21 | MHC.CM.PN ---
NURSE OPERATIONS STAFF SPECIALIST SECURITY NOTE ELECTRONIC MEDICAL RECORD REVIEWED ALNG WITH SHANICE DISCUSSED ON MULTIPOLE DISCIPLIANRY ROUNDS, PER HOSPITALSIT AFTER BEING EVALUATED BY NEUROLOGIST PATIENT MAY POSSIBLY BE DISCHARGED HOME TODAY , PATIENT IS AWARE OF THIWS DISCHARGE PLAN HOME WITH NO SERVICES PATIENT MET WITH CARES TEAM WORKER AND DECLINED MEDICAL SAFETY DIRECTOR PATIENTS 4 CHILDREN WERE TAKEN INTO [facility] CUSTODY ON THE EVENING OF THE 06/27/20 TRANSPORATION PATIENT WILL SELF ARRANGE PCP PATIENT TO CALL FOR POST HOSPITAL DISCHAGRE AND MAKE FOLLOW UP
[2020-06-29 11:22] VITALS: BP 141/60; PULSE 72; RESP 18; TEMP 36.2; O2SAT 98
[2020-06-29 15:13] VITALS: BP 142/73; PULSE 66; RESP 18; TEMP 36.4; O2SAT 98
== END 2020-06-29 16:22 | disposition home or self-care (01) | DRG 58 ==
LOC: HO.ED 21:42 → HO.S3 22:29
PROVIDERS: Physician Assistant; Physician Assistant Medical; Admitting Provider Internal Medicine; Emergency Provider Internal Medicine; Visit Provider Internal Medicine
DX: I67.5 Moyamoya disease (principal); R56.9 Unspecified convulsions; F17.210 Nicotine dependence, cigarettes, uncomplicated; Z23 Encounter for immunization; Z71.6 Tobacco abuse counseling; Z20.828 Contact with and (suspected) exposure to other viral communicable diseases; Z87.820 Personal history of traumatic brain injury
CPT/HCPCS: 36415; 70450; 70496; 70498; 80048; 80053; 80307; 80320; 81001; 81025; 82550; 82728; 85025; 87635; 90686; 93005; 96361; 96375; 99285; G0480; J1650; J1953; J2405; Q9967

== ENCOUNTER 2021-06-21 11:30 | Outpatient (RCR) | payer MEDICAID, SELFPAY ==
--- NOTE | 2021-06-12 11:48 | MHC.OT.OEV ---
[address] [phone] F: [phone] Occupational Therapy Evaluation Diagnosis: Right hemiparesis and right hand contracture Date of Onset: Date of Surgery: Attending Provider: ADINA Silvestre Prescribed Treatment: Follow Up Appointment: History of Current Condition: 40 yo female w/ long standing history of TBI at age [age] while at [facility] and strokes at the time of injury w/ resulting right hemiparesis, also noted to have hospitalization about a year ago for seizure activity, presents to OT today w/ hand contracture Significant Medical History: TBI age 8 Stroke w/ right hemiparesis age 8 following TBI Seizures HTN Asthma Precautions/Contraindications: Seizures Patient Goals: Hand Dominance: Left Observations: QuickDASH Score: 98 Prior Level of Function and Occupation Self Care, Employment, Leisure: Was volunteering at [employer], has not since March Living Situation, Family and/or Social Support: Lives w/ mother and 18 yo son, two children out of the home, other 3 children live out of state with their father Current Level of Function and Occupation Self Care, Employment, Leisure: Stays home, goes to social sciences department chair for counseling Enjoys listening to music Sons assists w/ some cooking and cleaning Sleep: Difficulty at times time to anxiety and insomnia Driving: Does not drive, uses transportation Vision: Intermittent blurred vision and hearing issues, moreso w/ migraines Balance: Pain Assessment Pain Score: 0 Pain Scale Used: Pain Location and Description: Pain free at rest High pain w/ hand clenches/contracts/fists Aggravating Factors: Clenched/fisted hand Alleviating Factors: Lidocaine patches Tylenol Skin and Soft Tissue Assessment Skin and Soft Tissue: Comments: Nerve assessment Ulnar Nerve: Right Impaired Median Nerve: Right Impaired Radial Nerve: Right Impaired Comments: Sensory Assessment Temperature: Right Impaired Light Touch: Right Impaired Proprioception: Right Impaired Vibration: Right Impaired Comments: Touch localization and discrimination absent to upper arm Edema Assessment Upper Extremity: Lower Extremity: Comments: Dexterity Assessment Dexterity: Right Impaired Comments: Special Tests Comments: Grade 3 (modified huber scale) tone through right wrist and hand Grade 2 elbow and shoulder AROM(PROM) Strength Cervical Cervical Flexion: Cervical Extension: Cervical Lateral Flexion: Cervical Rotation: Comments: Decreased end range cervical rotation to right Shoulder Flexion: R 130 L 170 Extension: Abduction: Internal Rotation: External Rotation: Comments: Other place WFL No scapular winging observed Flexion: Extension: Abduction: Internal Rotation: External Rotation: Comments: Right grossly 4/5 Elbow Flexion: Extension: Pronation: Supination: Comments: WFL Flexion: Extension: Pronation: Supination: Comments: Right grossly 4-/5 Wrist Flexion: Extension: Ulnar Deviation: Radial Deviation: Comments: WFL PROM but functionally limited due to pain and increased tone Flexion: Extension: Ulnar Deviation: Radial Deviation: Comments: Thumb Thumb CMC Flexion: Thumb MCP Flexion: Thumb IP Flexion: Radial Abduction: Palmar Abduction: [place] (Kapandji 0-10): Comments: Thumb positions in hyperextension Digits Index MCP: PIP: DIP: Long MCP: PIP: DIP: Ring MCP: PIP: DIP: Small MCP: PIP: DIP: Comments: Positions in hyperextension Makes tight fist at times, occasioanlly involuntary closing Requires forecful wrist flex into tenodesis pattern to release clenched fist Gross Grasp: Lateral Pinch: Two-Point Pinch: Three-Jaw Conrado: Comments: Not tested Patient Education Primary Language: Moroccan Industrial Specialist Required: No Current Knowledge: Understands information with skills for self-management Teaching Method: Demonstration Verbal Education Needs Identified on Evaluation: Disease Information Equipment Use Exercise Pain Safety How did patient/family demonstrate learning? Patient demonstrates Patient verbalizes Barriers to Learning: None Readiness for Learning: Who was educated? Comments: Plan of Care Assessment: 40 yo female presents to OT about 30 years s/p TBI and multiple strokes resulting in right hemiparesis. She has since has minimal functional use of right hand due to tone fluctuating, impaired strength, sensation and coordination. She is left hand dominant and lives with her mother, who helps w/ most IADL, she had been volunteering at [employer] until recently. On assessment, sensation appears untestable and she is unbale to participate in functional coordination or strength assessment. ROM is WFL passively, she uses a tenodesis pattern to open hand. She will benefit from brief course of OT to fit w/ nighttime resting orthosis and educate on postural strengthening and passive stretching to right hand/UE to maintain movements and joint space. STG Duration: 2 weeks Short Term Goals: Ind w/ nighttime resting orthosis Ind w/ self stretching to right UE and hand Ind w/ jeffy-scap strengthening and postural exercises LTG Duration: Pumper Gauger Goals: Same as above Frequency and Duration: The patient will be seen 2x/wk for 2 weeks Treatment Plan: Therapeutic Exercise Home Exercise Program Splinting Neuro Re-ed Patient Education Soft Tissue Mobilization Electronically Signed By: Krista Romero OTR/L Reviewed/agree with student documentation: Therapist: Please sign and return to therapist, Thank you for your referral.
--- NOTE | 2021-07-01 15:05 | MHC.OT.DC ---
[address] [phone] F: [phone] Occupational Therapy Discharge Note Provider: ADINA Silvestre Diagnosis: Right hemiparesis and right hand contracture Date of Evaluation: 06/12/21 Date of Discharge: 07/01/21 Treatments to Date: 2 Cancellations to Date: 1 No Shows to Date: 3 Discharge Status: Patient Elected to Stop Discharge Summary: Lynda has good understanding of HEP and self stretching at baseline, and able to demo good joint protection and follow through during therapy. Good follow through w/ nighttime orthosis wear, no issues to this point. She has missed three consecutive appointments, we will discharge at this time. She has good understanding of self management of chronic issues related to TBI. Electronically Signed By: Krista Romero OTR/L Reviewed/agree with student documentation: N/A Therapist: Please Sign and return to therapist, thank you for your referral.
== END 2021-07-01 15:06 | disposition home or self-care (01) ==
LOC: HO.OT 11:30
PROVIDERS: PCP Nurse Practitioner; Visit Provider Nurse Practitioner
DX: G81.91 Hemiplegia, unspecified affecting right dominant side (principal); M24.541 Contracture, right hand
CPT/HCPCS: 29125; 97110; 97166

== ENCOUNTER 2021-06-21 11:59 | Outpatient (REF) | payer MEDICAID, SELFPAY ==
--- NOTE | ~2021-06-21 | XR_ITS ---
EXAMINATION: XR KNEE, LEFT CLINICAL INFORMATION: Left knee pain COMPARISON: None TECHNIQUE: Four views of the left knee. FINDINGS: Bones and soft tissues are normal. No fracture or joint effusion. Alignment is anatomic. Joint spaces are well maintained. No abnormal soft tissue calcification. XR/XR knee LT 4V IMPRESSION: Normal left knee.
== END 2021-06-21 12:00 | disposition home or self-care (01) ==
LOC: HO.XRAY 11:59
PROVIDERS: PCP Nurse Practitioner; Visit Provider Nurse Practitioner
DX: M25.562 Pain in left knee (principal)
CPT/HCPCS: 73564

== ENCOUNTER 2021-08-15 12:26 | Outpatient (REF) | payer MEDICAID, SELFPAY ==
--- NOTE | ~2021-08-15 | CT_ITS ---
EXAMINATION: CT HEAD WITHOUT CONTRAST CLINICAL INFORMATION: Seizure disorder. COMPARISON: CT brain 06/27/2020 TECHNIQUE: Contiguous axial imaging was performed from the skull base to vertex without intravenous administration of contrast. This CT examination was performed using dose optimization techniques as appropriate, variously including the following: *Automated exposure control *Adjustment of mA and/or kV according to patient size (this includes techniques or standardized protocols for targeted exams where dose is matched to indication/reason for exam; i.e. extremities or head) *Use of iterative reconstruction technique DLP: 835 mGy-cm FINDINGS: There is no evidence of acute intracranial hemorrhage or territorial infarction. There is chronic-appearing encephalomalacia of left insula, lentiform nucleus and mesiotemporal lobe is noted. Mild ex vacuo dilatation of the lateral ventricle is noted. No abnormal mass effect or midline shift is seen. Lundberg to white matter differentiation is well preserved. No extra-axial fluid collections are identified. The ventricles are asymmetrical with ex vacuo dilatation of left lateral ventricle. There is no suggestion for hydrocephalus. The osseous structures and soft tissues are normal. There is a polyp or retention cyst right maxillary sinus with minimal mucoperiosteal thickening left maxillary sinus. Rest of the paranasal sinuses are well-aerated and clear. CT/CT head/brain wo con IMPRESSION: No acute intracranial process seen. Known chronic encephalomalacia left insula, lentiform nucleus and kearns radiata with ex vacuo dilatation of left lateral ventricle. No major change compared to 06/27/2020.
== END 2021-08-15 12:27 | disposition home or self-care (01) ==
LOC: HO.CT 12:26
PROVIDERS: PCP Nurse Practitioner; Visit Provider Psychiatry & Neurology Neurology
DX: G40.909 Epilepsy, unspecified, not intractable, without status epilepticus (principal)
CPT/HCPCS: 70450

== ENCOUNTER 2021-08-21 11:00 | Outpatient (RCR) | payer MEDICAID, SELFPAY ==
[2021-07-29 10:42] VITALS: BP 142/67; PULSE 85
== END 2021-10-09 14:35 | disposition home or self-care (01) ==
LOC: HO.PT 11:00
PROVIDERS: PCP Nurse Practitioner; Visit Provider Nurse Practitioner
DX: G81.91 Hemiplegia, unspecified affecting right dominant side (principal)
CPT/HCPCS: 97110; 97162

== ENCOUNTER 2022-06-23 13:26 | Observation (INO) | payer MEDICAID, SELFPAY ==
[2022-06-23 14:11] VITALS: BP 126/62; PULSE 82; RESP 16; TEMP 36.6; O2SAT 99; BMI 37.4
[2022-06-23 14:48] LABS: MANUAL DIFF FLAG NO
[2022-06-23 14:50] LABS: Basophils Percent Auto 0.4 % (0-2); Eosinophils Absolute Auto 0.2 X10*3/uL (0.0-0.4); Eosinophils Percent Auto 1.5 % (0-4); Hematocrit 27.3 % (37.0-47.0); Hemoglobin 7.1 g/dl (12.0-16.0); Imm Gran Abs Auto 0.09 X10*3/uL (0.00-0.03); Imm Gran Pct Auto 0.9 % (0.0-0.4); Lymphocytes Absolute Auto 2.1 X10*3/uL (1.2-4.9); Lymphocytes Percent Auto 21.3 % (20-40); Mean Corpuscular Hemoglobin 16.9 pg (27.0-33.0); Mean Corpuscular Volume 65.2 fL (80.0-98.0); Mean Platelet Volume 10.1 fL (9.4-12.3); Monocytes Absolute Auto 0.8 X10*3/uL (0.1-1.2); Monocytes Percent Auto 8.5 % (2-11); Neutrophils Absolute Auto 6.6 x10*3/uL (2.0-8.3); Neutrophils Percent Auto 67.4 % (45-73); Platelet Count 395 X10*3/uL (160-400); Red Blood Count 4.19 X10*6/uL (4.20-5.50); Red Cell Distribution Width 19.6 % (11.0-16.0); White Blood Count 9.7 X10*3/uL (4.8-10.8)
[2022-06-23 15:06] LABS: COVID-19 Test Negative (Negative); IDNOW Serial# 16C4AD1C
[2022-06-23 15:10] LABS: Anion Gap 16 (12-20); Blood Urea Nitrogen 15 mg/dL (9-16); Carbon Dioxide 24 mmol/L (22-29); Chloride 105 mmol/L (96-108); Creatinine Clr Calc Pharmacy 114.3; Estimated Glomerular Filt Rate > 60; Glucose Random 98 mg/dL (60-115); Potassium 4.8 mmol/L (3.3-5.1); Sodium 140 mmol/L (135-145)
--- NOTE | 2022-06-23 20:32 | ED.RECABL ---
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 She states she saw her PCP on 06/20 and had lab work done. She told her doctor she has been feeling weak, fatigued and tired for a long time. She has been dizzy, short of breath with exertion and having intermittent chest pains. She has been feeling this way for the last several weeks, maybe even months. She states she has heavy and long periods. Her last was 06/05. Her menstrual cycle can last 7-14 days and she has very heavy bleeding. She also reports frequent rectal bleeding with history of hemorrhoids. She states she has BRBPR often when she has her period. She denies any abdominal pain, vomiting, diarrhea or constipation. Had a normal BM earlier today without blood. MD complaint: abnormal lab Initial visit (ago): week(s) Returns today for: called because of abnormal lab/test Description of abnormal result: hemoglobin 7.1 Context: called for abnormal lab result Associated symptoms: chest pain, shortness of breath and malaise Related Data Home Medications Medication Instructions Recorded Confirmed acetaminophen 325 mg tablet 2 tab PO Q6H PRN Pain 06/23/22 06/23/22 albuterol sulfate 90 mcg/actuation 2 puff inhalation Q4-6H PRN 06/23/22 06/23/22 aerosol inhaler (Proventil HFA) Wheezing fluticasone propionate 100 1 puff inhalation BID asthma 06/23/22 06/23/22 mcg/actuation blister powder for inhalation (Flovent Diskus) Allergies Allergy/AdvReac Type Severity Reaction Status Date / Time No Known Allergies Allergy Verified 06/27/20 17:47 [No Known Allergies*] Review of Systems Review of Systems: Constitutional: No Fever, No Chills, +Fatigue ENT/Mouth: No sore throat, No Rhinorrhea, No Swallowing Difficulty Eyes: No Eye Pain, No Swelling, No Redness Cardiovascular: + Chest Pain, + SOB, No Orthopnea, No Edema Respiratory: No Cough, No Sputum, No Wheezing, +dyspnea Gastrointestinal: No Nausea, No Vomiting, No Diarrhea, No abdominal Pain, + Hematochezia, No Melena Genitourinary: No Dysuria, No Urinary Frequency, No Hematuria Musculoskeletal: No joint pain, No Myalgias Skin: No Skin Lesions, No rash, +Pallor Neuro: + Weakness, No Numbness, No Dizziness, No Headache Psych: No Anxiety/Panic, No Depression Heme/Lymph: No Bruising, No Lymphadenopathy Endocrine: No Polyuria, No Polydipsia [facility] Past Medical History Medical History Seizure Stroke TBI (traumatic brain injury) Surgical History History of Social History Social History Household Members: Children Housing: Apartment Do you presently have visiting nurse or other home services: No Cigarettes Per Day: 1 Years Smoked: 28 Second Hand Smoke Exposure: No Advance Directives: No service: No Current occupational status: employed Physical Exam Vital Signs: Vital Signs: Last Vital Signs Temp 98.4 F 06/23/22 20:52 Pulse 76 06/23/22 20:52 Resp 14 06/23/22 20:52 BP 131/70 06/23/22 20:52 Pulse Ox 98 06/23/22 20:52 O2 Del Method 06/23/22 20:52 BMI result Body Mass Index 37.4 Appearance: Alert. Oriented X3. No acute distress. Pale Eyes: Pupils equal, round and reactive to light. Conjuctival pallor ENT: Pharynx normal. Neck: Normal inspection. Neck supple. CVS: Normal heart rate and rhythm. Pulses normal. Respiratory: No respiratory distress. Breath sounds normal. Abdomen: Soft and nontender. +BS x4 Rectal - nonbleeding, hemorrhoids visible. declined LANCE Skin: Skin warm and dry. Normal skin color. Normal skin turgor. No rashes. Extremities: No lower extremity edema. Neuro: Oriented X 3. right hand contracture, mild weakness 4/5 of RUE. steady gait. Course Course Course Narrative: 41-year-old female presenting with acute on chronic anemia, symptomatic with generalized fatigue, weakness, shortness of breath and dyspnea on exertion. She also endorses chest pain with exertion. She is hemodynamically stable on arrival. No active bleeding noted at this time. She had a normal BM earlier today without blood. She is not on her menses. Her anemia is probably due to ongoing blood loss with multiple sources, both vaginal and rectal. She is adamantly denying any melena. She is not on anticoagulation. Declining a digital rectal exam. She is agreeable to blood transfusion today. Will repeat her H&H, check LFTs to rule out hemolysis, check a reticulocyte count and iron panel. Her MCV is quite low at 64.7. Upon review of her record it looks like her baseline hemoglobin from 2019 was 7.4-8.1 g/dl. Reevaluation(s) Reevaluation #1: Repeat H&H 6.05/26.. Consented for blood. Will give 1 unit now. No evidence of hemolysis on labs. Iron is veyr low. Would likely benefit from IV iron. Her anemia seems to be multifactorial. She is significantly symptomatic. Will plan for transfusion and admission. TT hospitalist who will admit. MDM - Recheck/Abnormal Lab/Rx Medical Records Attestation: I reviewed the patient's medical records. Lab Data Attestation: I reviewed the patient's lab results. Result diagrams: 06/23/22 21:07 06/23/22 14:40 Labs: Lab Results 06/23/22 06/23/22 06/23/22 Range/Units 14:40 14:40 14:40 WBC 9.7 (4.8-10.8) X10*3/uL RBC 4.19 L (4.20-5.50) X10*6/uL Hgb 7.1 L (12.0-16.0) g/dl Hct 27.3 L (37.0-47.0) % MCV 65.2 L (80.0-98.0) fL MCH 16.9 L (27.0-33.0) pg MCHC 26.0 L (31.0-35.0) g/dl RDW 19.6 H (11.0-16.0) % Plt Count 395 (160-400) X10*3/uL MPV 10.1 (9.4-12.3) fL Immature Gran % (Auto) 0.9 H (0.0-0.4) % Neut % (Auto) 67.4 (45-73) % Lymph % (Auto) 21.3 (20-40) % Campbell % (Auto) 8.5 (2-11) % Eos % (Auto) 1.5 (0-4) % Baso % (Auto) 0.4 (0-2) % Lymph # (Auto) 2.1 (1.2-4.9) X10*3/uL Campbell # (Auto) 0.8 (0.1-1.2) X10*3/uL Eos # (Auto) 0.2 (0.0-0.4) X10*3/uL Baso # (Auto) 0.0 (0.0-0.2) X10*3/uL Abs Immat Gran (auto) 0.09 H (0.00-0.03) X10*3/uL Absolute Neuts (auto) 6.6 (2.0-8.3) x10*3/uL Absolute Nucleated RBC 0.000 (0.0-0.012) X10*3/uL Nucleated RBC % (auto) 0.0 (0.0-0.2) /100WBC Absolute Retic (0.026-0.095) X10*6/uL Percent Retic (0.5-1.8) % Immature Retic Fraction (3.0-15.9) % Retic Hgb Equivalent (30.0-35.0) pg Sodium 140 (135-145) mmol/L Potassium 4.8 (3.3-5.1) mmol/L Chloride 105 (96-108) mmol/L Carbon Dioxide 24 (22-29) mmol/L Anion Gap 16 (12-20) BUN 15 (9-16) mg/dL Creatinine 0.68 (0.5-1.4) mg/dL Estim Creat Clear Calc 114.3 Estimated GFR > 60 Random Glucose 98 (60-115) mg/dL Calcium 9.0 D (8.4-10.2) mg/dL Iron (30-160) mcg/dL TIBC (228-428) mcg/dL % Saturation (15-50) % Unsat Iron Binding ug/dL Total Bilirubin (0.0-1.0) mg/dL Direct Bilirubin (0.0-0.5) mg/dL AST (5-31) U/L ALT (0-31) U/L Alkaline Phosphatase (39-117) U/L Troponin I High Sens (<3.5-17.0) ng/L Total Protein (6.5-8.0) g/dL Albumin (3.5-5.0) g/dL COVID-19 (VIRGIL) Negative (Negative) COVID-19 Clin Com See Note Blood Type Antibody Screen Crossmatch 06/23/22 06/23/22 06/23/22 Range/Units 21:07 21:07 21:07 WBC 10.7 (4.8-10.8) X10*3/uL RBC 4.05 L (4.20-5.50) X10*6/uL Hgb 6.9 L* (12.0-16.0) g/dl Hct 26.2 L (37.0-47.0) % MCV 64.7 L (80.0-98.0) fL MCH 17.0 L (27.0-33.0) pg MCHC 26.3 L (31.0-35.0) g/dl RDW 19.7 H (11.0-16.0) % Plt Count 381 (160-400) X10*3/uL MPV 10.0 (9.4-12.3) fL Immature Gran % (Auto) 0.9 H (0.0-0.4) % Neut % (Auto) 67.3 (45-73) % Lymph % (Auto) 23.5 (20-40) % Campbell % (Auto) 6.7 (2-11) % Eos % (Auto) 1.2 (0-4) % Baso % (Auto) 0.4 (0-2) % Lymph # (Auto) 2.5 (1.2-4.9) X10*3/uL Campbell # (Auto) 0.7 (0.1-1.2) X10*3/uL Eos # (Auto) 0.1 (0.0-0.4) X10*3/uL Baso # (Auto) 0.0 (0.0-0.2) X10*3/uL Abs Immat Gran (auto) 0.10 H (0.00-0.03) X10*3/uL Absolute Neuts (auto) 7.2 (2.0-8.3) x10*3/uL Absolute Nucleated RBC 0.000 (0.0-0.012) X10*3/uL Nucleated RBC % (auto) 0.0 (0.0-0.2) /100WBC Absolute Retic 0.079 (0.026-0.095) X10*6/uL Percent Retic 1.9 H (0.5-1.8) % Immature Retic Fraction 27.6 H (3.0-15.9) % Retic Hgb Equivalent 18.0 L (30.0-35.0) pg Sodium (135-145) mmol/L Potassium (3.3-5.1) mmol/L Chloride (96-108) mmol/L Carbon Dioxide (22-29) mmol/L Anion Gap (12-20) BUN (9-16) mg/dL Creatinine (0.5-1.4) mg/dL Estim Creat Clear Calc Estimated GFR Random Glucose (60-115) mg/dL Calcium (8.4-10.2) mg/dL Iron 25 L (30-160) mcg/dL TIBC 519 H (228-428) mcg/dL % Saturation 5 L (15-50) % Unsat Iron Binding 494 ug/dL Total Bilirubin 0.3 (0.0-1.0) mg/dL Direct Bilirubin < 0.2 (0.0-0.5) mg/dL AST 40 H D (5-31) U/L ALT 13 (0-31) U/L Alkaline Phosphatase 85 (39-117) U/L Troponin I High Sens < 3.5 (<3.5-17.0) ng/L Total Protein 8.1 H (6.5-8.0) g/dL Albumin 4.3 (3.5-5.0) g/dL COVID-19 (VIRGIL) (Negative) COVID-19 Clin Com Blood Type Antibody Screen Crossmatch 06/23/22 Range/Units 21:17 WBC (4.8-10.8) X10*3/uL RBC (4.20-5.50) X10*6/uL Hgb (12.0-16.0) g/dl Hct (37.0-47.0) % MCV (80.0-98.0) fL MCH (27.0-33.0) pg MCHC (31.0-35.0) g/dl RDW (11.0-16.0) % Plt Count (160-400) X10*3/uL MPV (9.4-12.3) fL Immature Gran % (Auto) (0.0-0.4) % Neut % (Auto) (45-73) % Lymph % (Auto) (20-40) % Campbell % (Auto) (2-11) % Eos % (Auto) (0-4) % Baso % (Auto) (0-2) % Lymph # (Auto) (1.2-4.9) X10*3/uL Campbell # (Auto) (0.1-1.2) X10*3/uL Eos # (Auto) (0.0-0.4) X10*3/uL Baso # (Auto) (0.0-0.2) X10*3/uL Abs Immat Gran (auto) (0.00-0.03) X10*3/uL Absolute Neuts (auto) (2.0-8.3) x10*3/uL Absolute Nucleated RBC (0.0-0.012) X10*3/uL Nucleated RBC % (auto) (0.0-0.2) /100WBC Absolute Retic (0.026-0.095) X10*6/uL Percent Retic (0.5-1.8) % Immature Retic Fraction (3.0-15.9) % Retic Hgb Equivalent (30.0-35.0) pg Sodium (135-145) mmol/L Potassium (3.3-5.1) mmol/L Chloride (96-108) mmol/L Carbon Dioxide (22-29) mmol/L Anion Gap (12-20) BUN (9-16) mg/dL Creatinine (0.5-1.4) mg/dL Estim Creat Clear Calc Estimated GFR Random Glucose (60-115) mg/dL Calcium (8.4-10.2) mg/dL Iron (30-160) mcg/dL TIBC (228-428) mcg/dL % Saturation (15-50) % Unsat Iron Binding ug/dL Total Bilirubin (0.0-1.0) mg/dL Direct Bilirubin (0.0-0.5) mg/dL AST (5-31) U/L ALT (0-31) U/L Alkaline Phosphatase (39-117) U/L Troponin I High Sens (<3.5-17.0) ng/L Total Protein (6.5-8.0) g/dL Albumin (3.5-5.0) g/dL COVID-19 (VIRGIL) (Negative) COVID-19 Clin Com Blood Type O Positive Antibody Screen NEGATIVE Crossmatch See Detail ECG Data Attestation: I personally reviewed and interpreted this ECG as follows: ECG interpretation date: 06/23/22 ECG interpretation time: 22:05 Prior ECG tracings: available for review Interpretation: normal sinus rhythm, HR 73 bpm, normal [place] interval, normal QTc, no ST segment elevations or depressions Critical Care Time Critical Care Time Critical Care Time: Yes Total Critical Care Time: 41 Attestation: I have personally provided critical care time exclusive of time spent on separately billable procedures. Time includes review of lab data, radiology results, discussion with consultants, and monitoring for potential decompensation. Intervention performed as documented. Discharge Plan Discharge Clinical Impression: Acute on chronic blood loss anemia, Iron deficiency anemia, Menometrorrhagia Patient Disposition: Admitted As Inpatient
[2022-06-23 20:52] VITALS: BP 131/70; PULSE 76; RESP 14; TEMP 36.9; O2SAT 98
[2022-06-23 21:11] LABS: MANUAL DIFF FLAG NO
[2022-06-23 21:13] LABS: Basophils Percent Auto 0.4 % (0-2); Eosinophils Absolute Auto 0.1 X10*3/uL (0.0-0.4); Eosinophils Percent Auto 1.2 % (0-4); SCAN SMEAR FLAG 1
[2022-06-23 21:15] LABS: Hematocrit 26.2 % (37.0-47.0); Imm Gran Pct Auto 0.9 % (0.0-0.4); Immature Retic Fraction 27.6 % (3.0-15.9); Lymphocytes Absolute Auto 2.5 X10*3/uL (1.2-4.9); Lymphocytes Percent Auto 23.5 % (20-40); Mean Corpuscular HGB Conc 26.3 g/dl (31.0-35.0); Monocytes Absolute Auto 0.7 X10*3/uL (0.1-1.2); Monocytes Percent Auto 6.7 % (2-11); Neutrophils Absolute Auto 7.2 x10*3/uL (2.0-8.3); Neutrophils Percent Auto 67.3 % (45-73); Platelet Count 381 X10*3/uL (160-400); Red Blood Count 4.05 X10*6/uL (4.20-5.50); Red Cell Distribution Width 19.7 % (11.0-16.0); Reticulocyte Percent 1.9 % (0.5-1.8); Reticulocytes Absolute 0.079 X10*6/uL (0.026-0.095); White Blood Count 10.7 X10*3/uL (4.8-10.8)
[2022-06-23 21:19] LABS: Mean Corpuscular Volume 64.7 fL (80.0-98.0)
[2022-06-23 21:20] LABS: Hemoglobin 6.9 g/dl (12.0-16.0)
--- NOTE | 2022-06-23 21:34 | ECG_ITS ---
Test Reason : cp Blood Pressure : / mmHG Vent. Rate : 073 BPM Atrial Rate : 073 BPM P-R Int : 158 ms QRS Dur : 074 ms QT Int : 418 ms P-R-T Axes : 038 039 044 degrees QTc Int : 460 ms Normal sinus rhythm RSR' or QR pattern in V1 suggests right ventricular conduction delay Otherwise normal ECG When compared with ECG of 27-JUN-2020 19:36, No significant change was found Referred By: Janie Lee Electronically Signed By:GRISELDA BELLE MD
[2022-06-23 21:43] LABS: Iron 25 mcg/dL (30-160); Percent Iron Saturation 5 % (15-50); Total Iron Binding Capacity 519 mcg/dL (228-428); Unsaturated Iron Binding 494 ug/dL
[2022-06-23 22:06] LABS: Troponin-I High Sensitivity < 3.5 ng/L (<3.5-17.0)
[2022-06-23 22:09] LABS: Alanine Aminotransferase 13 U/L (0-31); Albumin Level 4.3 g/dL (3.5-5.0); Alkaline Phosphatase 85 U/L (39-117); Aspartate Amino Transferase 40 U/L (5-31); Bilirubin Direct < 0.2 mg/dL (0.0-0.5); Bilirubin Total 0.3 mg/dL (0.0-1.0); Total Protein 8.1 g/dL (6.5-8.0)
--- NOTE | 2022-06-23 22:33 | PHA.MEDREC ---
Pharmacy Consult ? Medication Reconciliation Pharmacy has completed the medication reconciliation.
[2022-06-23 22:34] VITALS: BP 133/52; PULSE 77; RESP 11; TEMP 37
[2022-06-23 22:53] VITALS: BP 153/59; PULSE 65; RESP 14; TEMP 36.7
--- NOTE | 2022-06-23 23:11 | PM.IMHP ---
History of Present Illness Date of Service: 06/23/22 Chief Complaint: Generalized fatigue This is a 41-year-old female with a pertinent history of TBI as a child, chronic blood loss anemia due to menorrhagia and hemorrhoids who was sent to the ER by her PCP after she was found to be anemic on outpatient labs. Patient states she has been having generalized weakness, easy fatigability for the last 1 week. Also has been having associated dizziness with limitation of activities of daily living. Patient saw her PCP on 06/20 and had blood work done. She was called today by the nurse and asked to come to the ER as a hemoglobin was around 7. Patient states she usually has long and heavy periods which last about 2 weeks. Her last menstrual period was 06/06. Patient also states she has a history of hemorrhoids and has bright red blood per rectum with blood clots intermittently. She never had any surgery for hemorrhoids. She last had blood in stools on 06/20 and has had normal bowel movement since without any blood or blood clots. No symptoms of gastroesophageal reflux disease or abdominal discomfort. No changes in bowel habits. Patient denies fever, chills, nausea, vomiting, changes in urinary habits. In the ER, her hemoglobin was found to be 6.9 Review of Systems Review of Systems: All 13 review of systems are negative except as noted in [facility] Medical History (Updated 06/23/22 @ 23:18 by Brittaney Agosto MD) Seizure Stroke TBI (traumatic brain injury) Surgical History History of Social History Household Members: Children Housing: Apartment Do you presently have visiting nurse or other home services: No Cigarettes Per Day: 1 Years Smoked: 28 Second Hand Smoke Exposure: No Advance Directives: No service: No Current occupational status: employed Meds Allergies Allergy/AdvReac Type Severity Reaction Status Date / Time No Known Allergies Allergy Verified 06/27/20 17:47 [No Known Allergies*] Active Medications: Current Medications Acetaminophen (Acetaminophen 325 Mg Tablet) 650 mg PO Q6H PRN PRN Reason: Pain, Mild (Pain Scale 1-3) Albuterol Sulfate (Albuterol Sulfate 90 Mcg 8 Gm Inhaler) 2 puff INHALE Q4-6H PRN PRN Reason: Wheezing Fluticasone Propionate (Fluticasone Propionate 100 Mcg Blst.W.Dev) 1 puff INHALE BID [facility] Melatonin (Melatonin 3 Mg Tablet) 6 mg PO BEDTIME PRN PRN Reason: Insomnia Ondansetron HCl (Ondansetron Hcl 4 Mg/2 Ml Vial) 4 mg IVPUSH Q8H PRN PRN Reason: Nausea and Vomiting Pharmacy Consult (Consult Rx Perform Med Rec) 1 each MISCELLANE ONCE PRN PRN Reason: Consult order Sodium Chloride (0.9 % Sodium Chloride Flush 3 Ml Syringe) 3 ml IVFLUSH QSHIFT [facility] Home Medications Medication Instructions Recorded Confirmed Last Taken Type acetaminophen 325 mg tablet 2 tab PO Q6H PRN Pain 06/23/22 06/23/22 Unknown History albuterol sulfate 90 mcg/actuation 2 puff inhalation Q4-6H PRN 06/23/22 06/23/22 Unknown History aerosol inhaler (Proventil HFA) Wheezing fluticasone propionate 100 1 puff inhalation BID asthma 06/23/22 06/23/22 Unknown History mcg/actuation blister powder for inhalation (Flovent Diskus) Physical Exam Vital Signs and Narrative: Vital Signs: Last Vital Signs Temp 98.0 F 06/23/22 22:53 Pulse 65 06/23/22 22:53 Resp 14 06/23/22 22:53 BP 153/59 H 06/23/22 22:53 Pulse Ox 98 06/23/22 20:52 O2 Del Method 06/23/22 20:52 BMI result Body Mass Index 37.4 Middle-aged female lying in bed in no distress Neck supple, no JVD Regular rate and rhythm, S1-S2 heard Regular breath sounds bilaterally, no wheezing or crackles appreciated Abdomen soft nontender, no guarding, no rigidity Patient is awake, alert and oriented to self, place, time and person ; no focal motor deficit Psych: Normal mood No pedal edema Results Labs CBC and Chem 7: 06/23/22 21:07 06/23/22 14:40 Labs: Laboratory Results - last 24 hr 06/23/22 06/23/22 06/23/22 14:40 14:40 14:40 MCV 65.2 L MCH 16.9 L MCHC 26.0 L RDW 19.6 H Plt Count 395 MPV 10.1 Immature Gran % (Auto) 0.9 H Neut % (Auto) 67.4 Lymph % (Auto) 21.3 Riley % (Auto) 8.5 Eos % (Auto) 1.5 Baso % (Auto) 0.4 Lymph # (Auto) 2.1 Riley # (Auto) 0.8 Eos # (Auto) 0.2 Baso # (Auto) 0.0 Abs Immat Gran (auto) 0.09 H Absolute Neuts (auto) 6.6 Absolute Nucleated RBC 0.000 Nucleated RBC % (auto) 0.0 Absolute Retic Percent Retic Immature Retic Fraction Retic Hgb Equivalent Anion Gap 16 Estim Creat Clear Calc 114.3 Estimated GFR > 60 Random Glucose 98 Calcium 9.0 D Iron TIBC % Saturation Unsat Iron Binding Total Bilirubin Direct Bilirubin AST ALT Alkaline Phosphatase Troponin I High Sens Total Protein Albumin COVID-19 (VIRGIL) Negative COVID-19 Clin Com See Note Blood Type Antibody Screen Crossmatch 06/23/22 06/23/22 06/23/22 21:07 21:07 21:07 MCV 64.7 L MCH 17.0 L MCHC 26.3 L RDW 19.7 H Plt Count 381 MPV 10.0 Immature Gran % (Auto) 0.9 H Neut % (Auto) 67.3 Lymph % (Auto) 23.5 Riley % (Auto) 6.7 Eos % (Auto) 1.2 Baso % (Auto) 0.4 Lymph # (Auto) 2.5 Riley # (Auto) 0.7 Eos # (Auto) 0.1 Baso # (Auto) 0.0 Abs Immat Gran (auto) 0.10 H Absolute Neuts (auto) 7.2 Absolute Nucleated RBC 0.000 Nucleated RBC % (auto) 0.0 Absolute Retic 0.079 Percent Retic 1.9 H Immature Retic Fraction 27.6 H Retic Hgb Equivalent 18.0 L Anion Gap Estim Creat Clear Calc Estimated GFR Random Glucose Calcium Iron 25 L TIBC 519 H % Saturation 5 L Unsat Iron Binding 494 Total Bilirubin 0.3 Direct Bilirubin < 0.2 AST 40 H D ALT 13 Alkaline Phosphatase 85 Troponin I High Sens < 3.5 Total Protein 8.1 H Albumin 4.3 COVID-19 (VIRGIL) COVID-19 Clin Com Blood Type Antibody Screen Crossmatch 06/23/22 21:17 MCV MCH MCHC RDW Plt Count MPV Immature Gran % (Auto) Neut % (Auto) Lymph % (Auto) Riley % (Auto) Eos % (Auto) Baso % (Auto) Lymph # (Auto) Riley # (Auto) Eos # (Auto) Baso # (Auto) Abs Immat Gran (auto) Absolute Neuts (auto) Absolute Nucleated RBC Nucleated RBC % (auto) Absolute Retic Percent Retic Immature Retic Fraction Retic Hgb Equivalent Anion Gap Estim Creat Clear Calc Estimated GFR Random Glucose Calcium Iron TIBC % Saturation Unsat Iron Binding Total Bilirubin Direct Bilirubin AST ALT Alkaline Phosphatase Troponin I High Sens Total Protein Albumin COVID-19 (VIRGIL) COVID-19 Clin Com Blood Type O Positive Antibody Screen NEGATIVE Crossmatch See Detail Assessment and Plan (1) Acute on chronic blood loss anemia: Status: Acute (2) Menometrorrhagia: Status: Acute (3) Iron deficiency anemia: Status: Acute (4) TBI (traumatic brain injury): Status: Acute (5) Hemorrhoids: Status: Acute Plan This is a 41-year-old female with a pertinent history of TBI as a child, chronic blood loss anemia due to menorrhagia and hemorrhoids who was sent to the ER by her PCP after she was found to be anemic on outpatient labs. #. Acute symptomatic iron deficiency anemia on chronic anemia #. Menometrorrhagia #. Hemorrhoids -will admit patient. Transfuse PRBC and monitor for symptomatic improvement. Repeat CBC in a.m.. Patient will benefit from iron supplementation at discharge. Currently without active bleeding. Will need OBGYN referral as an outpatient for treatment of menometrorrhagia and general surgery referral as an outpatient for management of hemorrhoids. Consulting Physical therapy to evaluate and treat in a patient with generalized weakness #. Traumatic brain injury -not on anti-epileptics #. Asthma -no concern for exacerbation at the time of admission. Continue home fluticasone DVT prophylaxis: Lovenox 40 mg daily Diet: Regular diet Full code Quality Stroke Does the patient have a stroke diagnosis?: No VTE Prior VTE?: No VTE Risk Level:: Medical - low VTE Device Contraindication: Treatment Not Indicated VTE Drug Contraindication: N/A - Med Ordered
--- NOTE | 2022-06-23 23:16 | PC.NURSE ---
Contact made to Jasmeet from lab regarding transfusion reaction order . Per jasmeet, Order entered In mistake.
[2022-06-23 23:24] VITALS: BP 139/61; PULSE 65; RESP 10; TEMP 36.9
--- NOTE | 2022-06-23 23:27 | PC.NURSE ---
unit 1 of PRBC completed.pt tolerated transfusion well. no signs of transfusion reaction
[2022-06-23 23:48] VITALS: BP 130/50; PULSE 72; RESP 13; TEMP 37
[2022-06-24] VITALS (7 sets, daily range): BP systolic 122–132; BP diastolic 43–56; PULSE 63–92; RESP 13–18; TEMP 36.8–37.1; O2SAT 97–98
--- NOTE | 2022-06-24 00:07 | PC.NURSE ---
this RN stayed at pt bedside during first 15 minutes of transfusion. pt tolerating transfusion well at this time.
[2022-06-24] MEDS: Enoxaparin Sodium 40 MG/0.4 ML SYRINGE SUBCUT (00:46)
--- NOTE | 2022-06-24 00:53 | PC.NURSE ---
PRBC transfusion completed. pt tolerated transfusion well. no S/S of transfusion reaction.
[2022-06-24] MEDS: 0.9 % Sodium Chloride Flush 3 ML SYRINGE IVFLUSH (01:04)
[2022-06-24] MEDS: Acetaminophen 325 MG TABLET 650 MG PO (02:33)
--- NOTE | 2022-06-24 05:18 | PC.NURSE ---
Pt ambulated to restroom. When back in room, positioned in bed for comfort
[2022-06-24 06:30] LABS: MANUAL DIFF FLAG NO
[2022-06-24 06:35] LABS: Basophils Percent Auto 0.3 % (0-2); Eosinophils Absolute Auto 0.1 X10*3/uL (0.0-0.4); Eosinophils Percent Auto 1.1 % (0-4); Hematocrit 30.1 % (37.0-47.0); Hemoglobin 8.7 g/dl (12.0-16.0); Imm Gran Abs Auto 0.09 X10*3/uL (0.00-0.03); Imm Gran Pct Auto 0.7 % (0.0-0.4); Lymphocytes Absolute Auto 3.1 X10*3/uL (1.2-4.9); Mean Corpuscular HGB Conc 28.9 g/dl (31.0-35.0); Mean Corpuscular Hemoglobin 19.8 pg (27.0-33.0); Mean Corpuscular Volume 68.6 fL (80.0-98.0); Monocytes Absolute Auto 0.7 X10*3/uL (0.1-1.2); Neutrophils Absolute Auto 7.9 x10*3/uL (2.0-8.3); Neutrophils Percent Auto 65.9 % (45-73); Platelet Count 352 X10*3/uL (160-400); Red Blood Count 4.39 X10*6/uL (4.20-5.50)
[2022-06-24 06:47] LABS: Anion Gap 16 (12-20); Blood Urea Nitrogen 13 mg/dL (9-16); Calcium 9.2 mg/dL (8.4-10.2); Carbon Dioxide 25 mmol/L (22-29); Chloride 103 mmol/L (96-108); Creatinine Clr Calc Pharmacy 112.6; Estimated Glomerular Filt Rate > 60; Glucose Random 87 mg/dL (60-115); Potassium 4.7 mmol/L (3.3-5.1); Sodium 139 mmol/L (135-145)
[2022-06-24] MEDS: Fluticasone Propionate 100 MCG BLST.W.DEV 1 PUFF INHALE (08:34)
--- NOTE | 2022-06-24 09:28 | PC.NURSE ---
PT WAS SEEN BY DR SANDERSON -PLAN IS FOR DISCHARGE HOME TODAY.
--- NOTE | 2022-06-24 10:04 | PM.DS ---
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 Patient states she has been having generalized weakness, easy fatigability for the last 1 week.? Also has been having associated dizziness with limitation of activities of daily living.? Patient saw her PCP on 06/20 and had blood work done.? She was called today by the nurse and asked to come to the ER as a hemoglobin was around 7.? Patient states she usually has long and heavy periods which last about 2 weeks.? Her last menstrual period was 06/06.? Patient also states she has a history of hemorrhoids and has bright red blood per rectum with blood clots intermittently.? She never had any surgery for hemorrhoids.? She last had blood in stools on 06/20 and has had normal bowel movement since without any blood or blood clots.? No symptoms of gastroesophageal reflux disease or abdominal discomfort.? No changes in bowel habits.? Patient denies fever, chills, nausea, vomiting, changes in urinary habits. In the ER, her hemoglobin was found to be 6.9 Hospital Course: The patient was transfused 1 unit of PRBCs with improving in her h/h to 8.7/30. She had no active bleeding. She has remained hemodynamically stable and will be discharged home. She has been given referral to management expert and is urged to possibly see general surgery in the clinic if her hemorrhoids become an issue (she reports most of her bleeding is menstrual and not hemorrhoidal). She reported that a prescription of iron supplementation has been prescribed by her PCP and hence a new script has not been sent. Of note, the patient does state that she is currently on keppra twice daily (dose unknown). Her med rec currently does not reflect this, but the patient has been encouraged to continue her anti-epileptics as prescribed. Final discharge diagnosis: 1. Symptomatic anemia 2. Chronic blood loss anemia secondary to menometrorrhagia and possibly due to hemorrhoids 3. TBI 4. Seizure d/o Time Spent with Patient Time attestation: Total time spent providing and/or coordinating discharge services: Discharge coordination time: Less than 30 minutes Quality: Safe Use of Opioids Does Pt have an Active Cancer Diagnosis on the Problem List?: No Quality: Stroke Does the patient have a stroke diagnosis?: No Physical Exam Vital Signs: Vital Signs: Last Vital Signs Temp 98.5 F 06/24/22 09:18 Pulse 63 06/24/22 09:18 Resp 14 06/24/22 09:18 BP 122/49 L 06/24/22 09:18 Pulse Ox 98 06/24/22 09:18 O2 Del Method 06/24/22 09:18 BMI result Body Mass Index 37.4 Const: Other: General - no acute distress, appears comfortable Cardiovascular - regular rate and rhythm, S1-S2 Lungs - normal respiratory effort, clear to auscultation bilaterally, no wheezing Abdomen - soft, nontender, no rebound or guarding Extremities - no edema bilaterally Neuro - awake and alert, no focal deficits DS: Data Data Completed and Pending Labs on day of discharge: Laboratory Results - last 24 hr 06/23/22 06/23/22 06/23/22 14:40 14:40 14:40 WBC 9.7 RBC 4.19 L Hgb 7.1 L Hct 27.3 L MCV 65.2 L MCH 16.9 L MCHC 26.0 L RDW 19.6 H Plt Count 395 MPV 10.1 Immature Gran % (Auto) 0.9 H Neut % (Auto) 67.4 Lymph % (Auto) 21.3 [place] % (Auto) 8.5 Eos % (Auto) 1.5 Baso % (Auto) 0.4 Lymph # (Auto) 2.1 [place] # (Auto) 0.8 Eos # (Auto) 0.2 Baso # (Auto) 0.0 Abs Immat Gran (auto) 0.09 H Absolute Neuts (auto) 6.6 Absolute Nucleated RBC 0.000 Nucleated RBC % (auto) 0.0 Absolute Retic Percent Retic Immature Retic Fraction Retic Hgb Equivalent Sodium 140 Potassium 4.8 Chloride 105 Carbon Dioxide 24 Anion Gap 16 BUN 15 Creatinine 0.68 Estim Creat Clear Calc 114.3 Estimated GFR > 60 Random Glucose 98 Calcium 9.0 D Iron TIBC % Saturation Unsat Iron Binding Total Bilirubin Direct Bilirubin AST ALT Alkaline Phosphatase Troponin I High Sens Total Protein Albumin COVID-19 (VIRGIL) Negative COVID-19 Clin Com See Note Blood Type Antibody Screen Crossmatch 06/23/22 06/23/22 06/23/22 21:07 21:07 21:07 WBC 10.7 RBC 4.05 L Hgb 6.9 L* Hct 26.2 L MCV 64.7 L MCH 17.0 L MCHC 26.3 L RDW 19.7 H Plt Count 381 MPV 10.0 Immature Gran % (Auto) 0.9 H Neut % (Auto) 67.3 Lymph % (Auto) 23.5 [place] % (Auto) 6.7 Eos % (Auto) 1.2 Baso % (Auto) 0.4 Lymph # (Auto) 2.5 [place] # (Auto) 0.7 Eos # (Auto) 0.1 Baso # (Auto) 0.0 Abs Immat Gran (auto) 0.10 H Absolute Neuts (auto) 7.2 Absolute Nucleated RBC 0.000 Nucleated RBC % (auto) 0.0 Absolute Retic 0.079 Percent Retic 1.9 H Immature Retic Fraction 27.6 H Retic Hgb Equivalent 18.0 L Sodium Potassium Chloride Carbon Dioxide Anion Gap BUN Creatinine Estim Creat Clear Calc Estimated GFR Random Glucose Calcium Iron 25 L TIBC 519 H % Saturation 5 L Unsat Iron Binding 494 Total Bilirubin 0.3 Direct Bilirubin < 0.2 AST 40 H D ALT 13 Alkaline Phosphatase 85 Troponin I High Sens < 3.5 Total Protein 8.1 H Albumin 4.3 COVID-19 (VIRGIL) COVID-19 Clin Com Blood Type Antibody Screen Crossmatch 06/23/22 06/24/22 06/24/22 21:17 05:57 05:57 WBC 12.0 H RBC 4.39 Hgb 8.7 L D Hct 30.1 L MCV 68.6 L MCH 19.8 L MCHC 28.9 L RDW 23.0 H Plt Count 352 MPV 11.0 Immature Gran % (Auto) 0.7 H Neut % (Auto) 65.9 Lymph % (Auto) 26.0 [place] % (Auto) 6.0 Eos % (Auto) 1.1 Baso % (Auto) 0.3 Lymph # (Auto) 3.1 [place] # (Auto) 0.7 Eos # (Auto) 0.1 Baso # (Auto) 0.0 Abs Immat Gran (auto) 0.09 H Absolute Neuts (auto) 7.9 Absolute Nucleated RBC 0.000 Nucleated RBC % (auto) 0.0 Absolute Retic Percent Retic Immature Retic Fraction Retic Hgb Equivalent Sodium 139 Potassium 4.7 Chloride 103 Carbon Dioxide 25 Anion Gap 16 BUN 13 Creatinine 0.69 Estim Creat Clear Calc 112.6 Estimated GFR > 60 Random Glucose 87 Calcium 9.2 Iron TIBC % Saturation Unsat Iron Binding Total Bilirubin Direct Bilirubin AST ALT Alkaline Phosphatase Troponin I High Sens Total Protein Albumin COVID-19 (VIRGIL) COVID-19 Clin Com Blood Type O Positive Antibody Screen NEGATIVE Crossmatch See Detail Discharge Plan Discharge Patient Disposition: Home, Self-Care Referrals: [facility] [Primary Care Provider] - 1 Week Kong Mckinnon MD [Physician] - 1 Week Discharge Medications: Continued acetaminophen 325 mg tablet 2 tab PO Q6H PRN (Reason: Pain) Flovent Diskus 100 mcg/actuation blister with device 1 puff INHALATION BID albuterol sulfate [Proventil HFA] 90 mcg/actuation HFA aerosol inhaler 2 puff INHALATION Q4-6H PRN (Reason: Wheezing) Discharge Orders: Discharge Order (Routine); Ordered 06/24/22 Ordered By: Hernán Cramer Diet: Advance to usual diet Activity on Discharge: As tolerated Stand Alone Forms: Patient Portal Discharge page Care Plan Goals: To stay healthy and out of the hospital. 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 Assessment: see d/c summary
--- NOTE | 2022-06-24 13:19 | MHC.CM.PN ---
Patient d/c'd home before being seen by case management.
== END 2022-06-24 10:45 | disposition home or self-care (01) ==
LOC: HO.ED 21:57 → HO.EDOVER 23:20
PROVIDERS: Physician Assistant; Admitting Provider Student in an Organized Health Care Education/Training Program; Emergency Provider Student in an Organized Health Care Education/Training Program; PCP Nurse Practitioner; Visit Provider Family Medicine
DX: K64.9 Unspecified hemorrhoids (principal); D50.9 Iron deficiency anemia, unspecified; N92.1 Excessive and frequent menstruation with irregular cycle; D62 Acute posthemorrhagic anemia; R07.89 Other chest pain; J45.909 Unspecified asthma, uncomplicated; R26.81 Unsteadiness on feet; R42 Dizziness and giddiness; F17.210 Nicotine dependence, cigarettes, uncomplicated; Z71.6 Tobacco abuse counseling; Z79.899 Other long term (current) drug therapy; Z87.820 Personal history of traumatic brain injury; Z20.822 Contact with and (suspected) exposure to COVID-19
CPT/HCPCS: 36415; 80048; 80076; 83540; 84484; 85025; 85045; 86850; 86900; 86901; 86923; 87635; 93005; 94640; 96372; 96374; 97162; 99218; 99285; J1650; P9016

== ENCOUNTER 2022-08-23 20:32 | Emergency (ER) | payer MEDICAID, SELFPAY ==
--- NOTE | 2022-08-23 20:43 | ED_ITS ---
HPI - Overdose General Chief Complaint: Overdose Stated Complaint: OD Time Seen by Provider: 08/23/22 20:43 Source: patient and EMS Mode of arrival: EMS Medication Instructions Recorded Confirmed states that she only drank alcohol earlier today. Onset (ago): hour(s) (Within the hour of arrival) Timing confirmed by: family member Intent: unknown Treatments Prior to Arrival: narcan Related Data Home Medications Medication Instructions Recorded Confirmed acetaminophen 325 mg tablet 2 tab PO Q6H PRN Pain 06/23/22 06/23/22
--- NOTE | 2022-08-23 20:43 | ED.OVERDOSE ---
HPI - Overdose General Chief Complaint: Overdose Stated Complaint: OD Time Seen by Provider: 08/23/22 20:43 Source: patient and EMS Mode of arrival: EMS Limitations: no limitations History of Present Illness HPI Narrative: 42-year-old female presents via EMS for overdose. She was found unresponsive, and received 10 mg of Narcan prior to arrival. Patient denies substance abuse, states that she only drank alcohol earlier today. complaint: accidental overdose Onset (ago): hour(s) (Within the hour of arrival) Timing confirmed by: family member Intent: unknown Context: Accidental Overdose: uncertain what happened Treatments Prior to Arrival: narcan Related Data Home Medications Medication Instructions Recorded Confirmed acetaminophen 325 mg tablet 2 tab PO Q6H PRN Pain 06/23/22 06/23/22 albuterol sulfate 90 mcg/actuation 2 puff inhalation Q4-6H PRN 06/23/22 06/23/22 aerosol inhaler (Proventil HFA) Wheezing fluticasone propionate 100 1 puff inhalation BID asthma 06/23/22 06/23/22 mcg/actuation blister powder for inhalation (Flovent Diskus) Allergies Allergy/AdvReac Type Severity Reaction Status Date / Time No Known Allergies Allergy Verified 06/27/20 17:47 [No Known Allergies*] Review of Systems Review of Systems: Constitutional: No Fever, No Chills Cardiovascular: No Chest Pain, No SOB Respiratory: No Cough, No Sputum Gastrointestinal: No Nausea, No Vomiting, No Diarrhea, No abdominal Pain Musculoskeletal: No joint pain, No Myalgias, No Joint Swelling Skin: No Skin Lesions, No rash Neuro: No Weakness, No Numbness, No Dizziness, No Headache Psych: No Anxiety, No Depression, No SI/HI/AH/VH Yes all other systems are reviewed and are negative [facility] Past Medical History Attestation statement: The following information was validated with the patient. Source: old records reviewed Medical History Acute on chronic blood loss anemia Hemorrhoids Iron deficiency anemia Menometrorrhagia Seizure Stroke TBI (traumatic brain injury) Surgical History History of Social History Social History Household Members: Children Housing: Apartment Do you presently have visiting nurse or other home services: No Cigarettes Per Day: 1 Years Smoked: 28 Second Hand Smoke Exposure: No Advance Directives: No service: No Current occupational status: employed Physical Exam Vital Signs: Vital Signs: Last Vital Signs Pulse 111 H 08/23/22 20:47 Resp 19 08/23/22 20:47 BP 140/73 H 08/23/22 20:47 Pulse Ox 98 08/23/22 20:47 O2 Del Method 08/23/22 20:47 BMI result Body Mass Index 36.1 Appearance: Alert. Oriented X3. No acute distress. Eyes: Pupils equal, round and reactive to light. ENT: Pharynx normal. Neck: Normal inspection. Neck supple. CVS: Normal heart rate and rhythm. Pulses normal. Respiratory: No respiratory distress. Breath sounds normal. Abdomen: Soft and nontender. Skin: Skin warm and dry. Normal skin color. Normal skin turgor. Extremities: No lower extremity edema. Moves all extremities against resistance. Neuro: No motor deficit. No sensory deficit. Cranial nerves 2-12 intact. Course Course Course Narrative: 42-year-old female presents via EMS for overdose. Patient adamantly denies using any narcotics however she required 10 mg of Narcan for revival. She was found unresponsive by her family members. She states that she only took extra-strength Tylenol, and ibuprofen for a sprained knee. She does report using some alcohol earlier today. She states that she does not have a drug problem, and does not want detox. She is alert oriented x4, answering questions appropriately. Will monitor for an hour 21:30 patient alert oriented x4, even unlabored respirations, following directions. O2 sat 99% on room air. Patient continues to deny narcotic use. Plan of care is to discharge home. Medical Decision Making Differential Diagnosis Differential Diagnoses: The differential diagnosis associated with the presentation includes Accidental overdose Admission/Observation Consideration of admission/observation: Escalation of care including admission/observation considered Admission not required at this time Tests considered The following testing was considered but not selected: X-ray, patient maintains O2 sat 99%, lung sounds clear to auscultation, low likelihood of aspiration. Prescription Management I considered prescription management with: Other Discharge with Narcan. Discharge Plan Discharge Clinical Impression: Drug overdose Patient Disposition: Home, Self-Care Instructions: Adult Overdose (ED) Additional Instructions: Consider detox. You are rona someone found you. You needed 10 mg of Narcan. If you did not get the Narcan, you would have today. Thank you for choosing this emergency department for evaluation. Please follow-up with primary care physician as needed. Return to the emergency department for any new, concerning, or worsening symptoms. Prescriptions: No Action acetaminophen 325 mg tablet 2 tab PO Q6H PRN (Reason: Pain) Flovent Diskus 100 mcg/actuation blister with device 1 puff INHALATION BID albuterol sulfate [Proventil HFA] 90 mcg/actuation HFA aerosol inhaler 2 puff INHALATION Q4-6H PRN (Reason: Wheezing)
[2022-08-23 20:47] VITALS: BP 138/69; BP 140/73; PULSE 111; PULSE 118; RESP 19; O2SAT 97; O2SAT 98; BMI 36.1
== END 2022-08-23 22:27 | disposition home or self-care (01) ==
PROVIDERS: Emergency Provider Internal Medicine
DX: R40.4 Transient alteration of awareness (principal); T50.901A Poisoning by unspecified drugs, medicaments and biological substances, accidental (unintentional), initial encounter; Y92.039 Unspecified place in apartment as the place of occurrence of the external cause
CPT/HCPCS: 99283

== ENCOUNTER 2023-06-15 10:56 | Outpatient (REF) | payer MEDICAID, SELFPAY ==
[2023-06-15 13:11] LABS: MANUAL DIFF FLAG NO
[2023-06-15 13:27] LABS: Basophils Percent Auto 0.3 % (0-2); Eosinophils Absolute Auto 0.3 X10*3/uL (0.0-0.4); Eosinophils Percent Auto 2.4 % (0-4); Hemoglobin 11.5 g/dl (12.0-16.0); Imm Gran Abs Auto 0.03 X10*3/uL (0.00-0.03); Imm Gran Pct Auto 0.3 % (0.0-0.4); Lymphocytes Absolute Auto 1.9 X10*3/uL (1.2-4.9); Lymphocytes Percent Auto 18.7 % (20-40); Mean Corpuscular HGB Conc 30.3 g/dl (31.0-35.0); Mean Corpuscular Hemoglobin 25.8 pg (27.0-33.0); Mean Corpuscular Volume 85.2 fL (80.0-98.0); Mean Platelet Volume 11.5 fL (9.4-12.3); Monocytes Absolute Auto 0.7 X10*3/uL (0.1-1.2); Monocytes Percent Auto 6.3 % (2-11); Neutrophils Absolute Auto 7.4 x10*3/uL (2.0-8.3); Platelet Count 372 X10*3/uL (160-400); Red Blood Count 4.46 X10*6/uL (4.20-5.50); Red Cell Distribution Width 15.3 % (11.0-16.0); White Blood Count 10.3 X10*3/uL (4.8-10.8)
[2023-06-15 13:46] LABS: Anion Gap 15 (12-20); Blood Urea Nitrogen 16 mg/dL (9-16); Calcium 9.6 mg/dL (8.4-10.2); Carbon Dioxide 25 mmol/L (22-29); Chloride 103 mmol/L (96-108); Cholesterol 162 mg/dL (<200); Estimated Glomerular Filt Rate > 60; Glucose Random 90 mg/dL (60-115); HDL Cholesterol 61 mg/dL (>40); LDL Cholesterol Calculated 72 mg/dL (<100); Potassium 4.2 mmol/L (3.3-5.1); Sodium 139 mmol/L (135-145); Triglycerides 148 mg/dL (<150)
[2023-06-15 14:07] LABS: Ferritin 13 ng/mL (10-250)
== END 2023-06-15 10:57 | disposition home or self-care (01) ==
LOC: HO.HHCL 10:56
PROVIDERS: Visit Provider Registered Nurse
DX: D50.0 Iron deficiency anemia secondary to blood loss (chronic) (principal); I10 Essential (primary) hypertension
CPT/HCPCS: 36415; 80048; 80061; 82728; 85025

== ENCOUNTER 2023-07-20 10:48 | Outpatient (REF) | payer MEDICAID, SELFPAY ==
[2023-07-20 14:16] LABS: Anion Gap 11 (12-20); Blood Urea Nitrogen 14 mg/dL (9-16); Calcium 9.1 mg/dL (8.4-10.2); Carbon Dioxide 27 mmol/L (22-29); Chloride 105 mmol/L (96-108); Estimated Glomerular Filt Rate > 60; Glucose Random 95 mg/dL (60-115); Sodium 139 mmol/L (135-145)
== END 2023-07-20 10:49 | disposition home or self-care (01) ==
LOC: HO.HHCL 10:48
PROVIDERS: Visit Provider Registered Nurse
DX: I10 Essential (primary) hypertension (principal)
CPT/HCPCS: 36415; 80048

== ENCOUNTER 2023-08-06 15:13 | Outpatient (REF) | payer MEDICAID, SELFPAY ==
[2023-08-07 03:40] LABS: CT PCR NOT DETECTED (Not Detect.); NG PCR NOT DETECTED (Not Detect.)
[2023-08-13 21:38] LABS: HPV mRNA E6/E7 rflx Not Detected (Not Detected)
== END 2023-08-06 15:14 | disposition home or self-care (01) ==
LOC: HO.LNP 15:13
PROVIDERS: Visit Provider Obstetrics & Gynecology
DX: N93.9 Abnormal uterine and vaginal bleeding, unspecified (principal)
CPT/HCPCS: 0353U; 81025; 84146; 84443; 84702; 85027; 87624; 88142; 99202

== ENCOUNTER 2023-08-06 15:13 | Outpatient (AMB) | payer MEDICAID, SELFPAY ==
[2023-08-06 15:13] VITALS: BP 132/70; BMI 36.7
--- NOTE | 2023-08-06 15:13 | MHC.OFFVIS ---
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 Last co testing in mammogram were many years ago [facility] Medical History Hemorrhoids Menometrorrhagia Iron deficiency anemia Acute on chronic blood loss anemia TBI (traumatic brain injury) Seizure Stroke Surgical History Hx of tubal ligation History of Social History Household Members: Children Housing: Apartment Do you presently have visiting nurse or other home services: No Cigarettes Per Day: 1 Years Smoked: 28 Second Hand Smoke Exposure: No service: No Current occupational status: employed Female Reproductive History Menstrual Date of last menstrual period: 07/08/23 Review of Systems Const All systems reviewed & are unremarkable except as noted in HPI and below Card Reports as per HPI Resp Reports as per HPI GI Reports as per HPI and Reports no additional complaints Reports as per HPI Physical Exam Vital Signs: Last Vital Signs BP 132/70 08/06/23 15:13 BMI result Body Mass Index 36.7 Const General: cooperative, healthy appearing and comfortable Chest Chest palpation & inspection: normal inspection of the chest and normal palpation of entire chest wall Breast/axilla inspection: normal inspection of the breasts and normal inspection of the axillae Breast/axilla palpation: normal palpation of the breasts, normal palpation of the axillae and no axillary lymphadenopathy Resp Effort & Inspection: normal respiratory effort Auscultation: clear to auscultation bilaterally Percussion: percussion normal Cardio Palpation: normal PMI Rate: regular rate Rhythm: regular rhythm Heart sounds: no murmurs and no rubs Peripheral pulses: Peripheral pulses 2+ throughout GI Inspection: Yes normal to inspection Palpation (GI): Soft to palpation, nontender, no guarding, not rigid and No hepatosplenomegaly present Percussion: Yes normal to percussion Auscultation: normal bowel sounds Rectal Exam - Female: deferred General: Yes bladder normal to palpation External Female Exam: No lesion Speculum Exam - Vagina: normal appearance of the vagina, normal palpation, normal vaginal discharge and not erythematous Speculum Exam - Cervix: normal appearance of the cervix and normal palpation Bimanual exam- vagina & uterus: normal bimanual exam, normal palpation, uterine size normal, bladder normal to palpation, consistency normal and normal palpation Bimanual Exam- Adnexa, other: normal adnexae, no masses and no tenderness Results AMB Test Urine AMB Test Urine Negative Last Edit by Aracelis Bello CMA on 08/06/23 15:30 Assessment & Plan Assessment & Plan (1) Abnormal uterine bleeding (AUB): Comment: History of stroke and seizure Code(s): N93.9 - Abnormal uterine and vaginal bleeding, unspecified Plan: Co testing done, GC and chlamydia taken CBC, TSH, prolactin, HCG, screening mammogram and pelvic ultrasound ordered. Discussed with the patient the different causes of abnormal bleeding including thyroid disorders, uterine and ovarian pathology, endometrial hyperplasia, carcinoma and other potential causes. Discussed with the patient the work up including CBC (to r/o anemia), TSH, prolactin, pelvic Ultrasound, endometrial biopsy to r/o endometrial pathology. All questions answered and the patient verbalized understanding. Instructed the patient to schedule an appointment for an endometrial biopsy in 2 weeks. Orders: Orders AMB HCG Urine Test Today Z32.02 - Encounter for test, result negative TSH reflex Free T4 Today N93.9 - Abnormal uterine and vaginal bleeding, unspecified HCG Quantitative Today N93.9 - Abnormal uterine and vaginal bleeding, unspecified US pelvic and transvaginal Today N93.9 - Abnormal uterine and vaginal bleeding, unspecified MM screening mammo BI Today Z12.31 - Encounter for screening mammogram for malignant neoplasm of breast Complete Blood Count no Diff Today N93.9 - Abnormal uterine and vaginal bleeding, unspecified Prolactin Today N93.9 - Abnormal uterine and vaginal bleeding, unspecified Coding Level of Care Code New Pt Level 3 (73636) Diagnoses Abnormal uterine bleeding (AUB) N93.9
== END 2023-08-06 15:28 ==
LOC: HO.HWS 15:13
PROVIDERS: Visit Provider Obstetrics & Gynecology
DX: Z32.02 Encounter for pregnancy test, result negative (principal); N93.9 Abnormal uterine and vaginal bleeding, unspecified
CPT/HCPCS: 99203

== ENCOUNTER 2023-08-06 15:50 | Outpatient (REF) | payer MEDICAID, SELFPAY ==
[2023-08-06 16:32] LABS: Hematocrit 33.7 % (37.0-47.0); Hemoglobin 10.6 g/dl (12.0-16.0); Mean Corpuscular HGB Conc 31.5 g/dl (31.0-35.0); Mean Corpuscular Hemoglobin 25.1 pg (27.0-33.0); Mean Corpuscular Volume 79.7 fL (80.0-98.0); Mean Platelet Volume 11.4 fL (9.4-12.3); Platelet Count 227 X10*3/uL (160-400); Red Blood Count 4.23 X10*6/uL (4.20-5.50); Red Cell Distribution Width 17.5 % (11.0-16.0); White Blood Count 9.4 X10*3/uL (4.8-10.8)
[2023-08-06 17:29] LABS: HCG Quantitative < 2 mIU/mL; TSH reflex Free T4 0.43 uIU/mL (0.32-4.0)
[2023-08-08 08:04] LABS: Prolactin 6.4 ng/mL
== END 2023-08-06 15:51 | disposition home or self-care (01) ==
LOC: HO.LAB 15:50
PROVIDERS: PCP Registered Nurse; Visit Provider Obstetrics & Gynecology
DX: N93.9 Abnormal uterine and vaginal bleeding, unspecified (principal)
CPT/HCPCS: 84146; 84443; 84702; 85027

== ENCOUNTER 2023-08-26 13:26 | Outpatient (REF) | payer MEDICAID, SELFPAY ==
--- NOTE | ~2023-08-26 | US_ITS ---
EXAMINATION: US PELVIC AND TRANSVAGINAL CLINICAL INFORMATION: Abnormal uterine, vaginal bleeding, last menstrual period 08/10/2023. COMPARISON: None available. TECHNIQUE: Ultrasound of the pelvis is performed using both transabdominal and transvaginal transducers along with Doppler. Transvaginal imaging is performed due to inadequate visualization transabdominally. FINDINGS: The uterus measures 12.0 x 3.9 x 5.3 cm. No discrete fibroids. Limited visualization due to bowel gas and body habitus. No significant free fluid. Visualization of the uterus and endometrium limited on transvaginal ultrasound images due to uterine length and positioning. Image segment of endometrium with thickness of 0.6 cm, suboptimally imaged. Right ovary measures 2.8 x 1.5 x 2.2 cm, volume 4.8 mL. Right ovary poorly visualized on transvaginal images. Uterus grossly unremarkable on limited transabdominal ultrasound images. Left ovary measures 4.0 x 1.4 x 2.1 cm, volume 6.2 mL. Left ovarian 1.5 x 1.4 x 1.3 cm cyst appears simple, likely physiologic. There is no indication for follow-up imaging. US/US pelvic and transvaginal IMPRESSION: 1. Endometrial thickness is 0.6 cm, although visualization is substantially limited. Gynecologic consultation and correlation with clinical exam recommended to determine further management including possible biopsy and/or follow-up imaging. 2. Limited visualization due to bowel gas and body habitus.
== END 2023-08-26 13:27 | disposition home or self-care (01) ==
LOC: HO.US 13:26
PROVIDERS: Visit Provider Obstetrics & Gynecology
DX: N93.9 Abnormal uterine and vaginal bleeding, unspecified (principal)
CPT/HCPCS: 76830; 76856

== ENCOUNTER 2023-10-06 14:27 | Outpatient (REF) | payer MEDICAID, SELFPAY ==
--- NOTE | ~2023-10-06 | MM_ITS ---
EXAMINATION: MM SCREENING DIGITAL BREAST TOMOSYNTHESIS, BILATERAL CLINICAL INFORMATION: Screening. Asymptomatic. COMPARISON: Mammography: This is a baseline mammogram. TECHNIQUE: Digital breast tomosynthesis is performed in both the craniocaudal and mediolateral oblique views along with computer-aided detection (CAD). Synthesized 2D images are generated from the tomosynthesis. FINDINGS: There are scattered areas of fibroglandular density (ACR BI-RADS breast composition Category b). There are no significant masses, abnormal calcifications, or other abnormalities. MM/MM tomosynthesis screening BI IMPRESSION: No mammographic evidence of malignancy. ASSESSMENT: BI-RADS BI-RADS 1 - Negative RECOMMENDATION: Routine annual mammography screening. 1 year F/U This examination should not preclude the clinical evaluation of a suspicious palpable abnormality. This patient's information was entered into a reminder system with a target due date for their next mammogram.
== END 2023-10-06 14:28 | disposition home or self-care (01) ==
LOC: HO.MAMMO 14:27
PROVIDERS: PCP Registered Nurse; Visit Provider Registered Nurse
DX: Z12.31 Encounter for screening mammogram for malignant neoplasm of breast (principal)
CPT/HCPCS: 77063; 77067

== ENCOUNTER → 2023-10-06 15:00 | Outpatient (BNV) | payer MEDICAID, SELFPAY | PROVIDERS: PCP Registered Nurse; Visit Provider Radiology Diagnostic Radiology | DX: Z12.31 Encounter for screening mammogram for malignant neoplasm of breast (principal) | CPT/HCPCS: 77063; 77067 ==

== ENCOUNTER 2023-10-12 12:59 | Outpatient (REF) | payer MEDICAID, SELFPAY ==
--- NOTE | ~2023-10-12 | XR_ITS ---
EXAMINATION: XR KNEE, LEFT CLINICAL INFORMATION: Acute on chronic left knee pain COMPARISON: Left knee 06/21/2021 TECHNIQUE: Four views of the left knee. FINDINGS: No fracture or joint effusion. Alignment is anatomic. Joint spaces are maintained. No abnormal soft tissue calcification. XR/XR knee LT 4V IMPRESSION: No bony abnormality.
[2023-10-12 16:10] LABS: MANUAL DIFF FLAG NO
[2023-10-12 16:12] LABS: Basophils Percent Auto 0.5 % (0-2); Eosinophils Absolute Auto 0.2 X10*3/uL (0.0-0.4); Eosinophils Percent Auto 2.5 % (0-4); Hematocrit 34.3 % (37.0-47.0); Hemoglobin 10.4 g/dl (12.0-16.0); Imm Gran Abs Auto 0.06 X10*3/uL (0.00-0.03); Imm Gran Pct Auto 0.8 % (0.0-0.4); Lymphocytes Absolute Auto 2.2 X10*3/uL (1.2-4.9); Lymphocytes Percent Auto 29.3 % (20-40); Mean Corpuscular HGB Conc 30.3 g/dl (31.0-35.0); Mean Corpuscular Hemoglobin 23.4 pg (27.0-33.0); Mean Corpuscular Volume 77.3 fL (80.0-98.0); Mean Platelet Volume 10.8 fL (9.4-12.3); Monocytes Absolute Auto 0.4 X10*3/uL (0.1-1.2); Monocytes Percent Auto 5.8 % (2-11); Neutrophils Absolute Auto 4.6 x10*3/uL (2.0-8.3); Neutrophils Percent Auto 61.1 % (45-73); Platelet Count 419 X10*3/uL (160-400); Red Blood Count 4.44 X10*6/uL (4.20-5.50); Red Cell Distribution Width 15.9 % (11.0-16.0); White Blood Count 7.5 X10*3/uL (4.8-10.8)
[2023-10-12 16:45] LABS: Ferritin 11 ng/mL (10-250)
== END 2023-10-12 13:00 | disposition home or self-care (01) ==
LOC: HO.HHCL 12:59
PROVIDERS: Visit Provider Registered Nurse
DX: D64.9 Anemia, unspecified (principal); M25.562 Pain in left knee; G89.29 Other chronic pain
CPT/HCPCS: 36415; 73564; 82728; 85025

== ENCOUNTER 2023-10-26 10:28 | Outpatient (REF) | payer MEDICAID, SELFPAY | END 2023-10-26 10:29 | disposition home or self-care (01) | LOC: HO.SH 10:28 | PROVIDERS: Visit Provider Registered Nurse | DX: Z01.118 Encounter for examination of ears and hearing with other abnormal findings (principal); H90.6 Mixed conductive and sensorineural hearing loss, bilateral | CPT/HCPCS: 92557; 92567 ==

== ENCOUNTER 2023-11-04 13:29 | Outpatient (AMB) | payer MEDICAID, SELFPAY ==
[2023-11-04 13:44] VITALS: BP 154/60; BMI 39.9
--- NOTE | 2023-11-04 13:44 | A.OFFVIS_ITS ---
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 The following workup was done.: H&H= 10.4/34.3 TSH, prolactin, hCG, GC and chlamydia were negative. Co testing was done was negative. Mammogram was BI-RADS 1. Pelvic ultrasound showed the following: The uterus measures 12.0 x 3.9 x 5.3 cm. No discrete fibroids. Limited visualization due to bowel gas and body habitus. No significant free fluid. Visualization of the uterus and endometrium limited on transvaginal ultrasound images due to uterine length and positioning. Image segment of endometrium with thickness of 0.6 cm, suboptimally imaged. Right ovary measures 2.8 x 1.5 x 2.2 cm, volume 4.8 mL. Right ovary poorly visualized on transvaginal images. Uterus grossly unremarkable on limited transabdominal ultrasound images. Left ovary measures 4.0 x 1.4 x 2.1 cm, volume 6.2 mL. Left ovarian 1.5 x 1.4 x 1.3 cm cyst appears simple, likely physiologic. There is no indication for follow-up imaging. FORMERLY [facility], [facility]–1983 Medical History Hemorrhoids Menometrorrhagia Iron deficiency anemia Acute on chronic blood loss anemia TBI (traumatic brain injury) Seizure Stroke Surgical History Hx of tubal ligation History of Social History Household Members: Children Housing: Apartment Do you presently have visiting nurse or other home services: No Cigarettes Per Day: 1 Years Smoked: 28 Second Hand Smoke Exposure: No Patient : No service: No Current occupational status: employed Female Reproductive History Menstrual Age of Menarche: 13 Duration of menses: 6-7 days Date of last menstrual period: 10/08/23 control method: none Review of Systems Const All systems reviewed & are unremarkable except as noted in HPI and below Reports as per HPI and Reports no additional complaints GI Reports no additional complaints Reports no additional complaints Physical Exam Vital Signs: Last Vital Signs BP 154/60 H 11/04/23 13:44 BMI result Body Mass Index 39.9 Assessment & Plan Assessment & Plan (1) Abnormal uterine bleeding (AUB): Comment: History of stroke and seizure Code(s): N93.9 - Abnormal uterine and vaginal bleeding, unspecified Plan: Discussed with the patient the results of the workup done, recommended next step is to proceed with EMB. EMB attempted, was aborted patient's request because of pain during the procedure. The patient would like to reschedule an appointment for an EMB, recommended the patient to take [id number] analgesic an hour prior to procedure. All questions answered, the patient verbalized understanding. Instructions given to the patient to schedule an EMB appointment within a week Coding Level of Care Code Est Pt Level 3 (57808) Diagnoses Abnormal uterine bleeding (AUB) N93.9
== END 2023-11-04 15:17 | disposition home or self-care (01) ==
LOC: HO.HWS 13:30
PROVIDERS: PCP Registered Nurse; Visit Provider Obstetrics & Gynecology
DX: N93.9 Abnormal uterine and vaginal bleeding, unspecified (principal)
CPT/HCPCS: 99213

== ENCOUNTER → 2023-11-04 13:29 | Outpatient (BNVA) | payer MEDICAID, SELFPAY | PROVIDERS: PCP Registered Nurse; Visit Provider Obstetrics & Gynecology | DX: N93.9 Abnormal uterine and vaginal bleeding, unspecified (principal) | CPT/HCPCS: 99212 ==

== ENCOUNTER 2023-12-02 12:28 | Outpatient (RCR) | payer MEDICAID, SELFPAY ==
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
== END 2023-12-10 10:18 | disposition home or self-care (01) ==
LOC: HO.SH 12:28
PROVIDERS: Visit Provider Registered Nurse
DX: G81.91 Hemiplegia, unspecified affecting right dominant side (principal)
CPT/HCPCS: 96125

== ENCOUNTER 2024-02-28 13:05 | Emergency (ER) | payer MEDICAID, SELFPAY ==
[2024-02-28 13:29] VITALS: BP 164/68; BP 177/62; PULSE 68; PULSE 71; RESP 20; TEMP 37.2; O2SAT 98; O2SAT 99; BMI 37.7
--- NOTE | 2024-02-28 13:50 | ED.GENADULT ---
HPI - General Adult General Chief complaint: Dental/Oral Stated complaint: R FACE/SHAFER PER EMS Time Seen by Provider: 02/28/24 13:24 Source: patient and RN notes reviewed Mode of arrival: ambulatory Limitations: no limitations History of Present Illness ED Provider: Facial pain HPI narrative: This is a 43-year-old female, with a history of CVA with right-sided weakness, who presents emergency department with complaints of right sided dental pain and right-sided facial swelling x 3 days. Patient reports that she has pain that starts in her tooth and radiates throughout the entire right side of her face. She states that she woke up and felt as though the right side her face was swollen. She denies any fevers or chills. She has a dentist however states that she does not have an appointment until May. Denies taking any medications at home prior to arrival. No other complaints or concerns at this time. MD complaint: Right-sided facial pain, dental pain Onset (ago): day(s) Location: face Severity: moderate Quality: aching Pain Consistency: constant Relieving factors: none Exacerbating factors: none Associated symptoms: denies other symptoms Treatments prior to arrival: none Related Data Home Medications ?Medication ?Instructions ?Recorded ?Confirmed acetaminophen 325 mg tablet 2 tab PO Q6H PRN Pain 06/23/22 06/23/22 albuterol sulfate 90 mcg/actuation 2 puff inhalation Q4-6H PRN 06/23/22 06/23/22 aerosol inhaler (Proventil HFA) Wheezing fluticasone propionate 100 1 puff inhalation BID asthma 06/23/22 06/23/22 mcg/actuation blister powder for inhalation (Flovent Diskus) amitriptyline 25 mg tablet 25 mg PO BEDTIME 08/06/23 ferrous sulfate 325 mg (65 mg 325 mg PO Q OTHER DAY 08/06/23 iron) tablet (FeroSul) hydroxyzine HCl 25 mg tablet 25 mg PO PRN 08/06/23 Previous Rx's ?Medication ?Instructions ?Recorded ferrous sulfate 325 mg (65 mg 325 mg PO DAILY #90 tabs 08/07/23 iron) tablet,delayed release acetaminophen 500 mg tablet 500 mg PO Q6H PRN pain #30 tabs 02/28/24 (Tylenol Extra Strength) amoxicillin 875 mg-potassium 1 tab PO BID 10 days #19 tabs 02/28/24 clavulanate 125 mg tablet ibuprofen 600 mg tablet 600 mg PO Q6H PRN pain #30 tabs 02/28/24 Allergies Allergy/AdvReac Type Severity Reaction Status Date / Time No Known Allergies Allergy Verified 02/28/24 13:34 [No Known Allergies*] Review of Systems Review of Systems: Yes all other systems are reviewed and are negative Constitutional: Constitutional: Reports as per [facility] Past Medical History Medical History Hemorrhoids Menometrorrhagia Iron deficiency anemia Acute on chronic blood loss anemia TBI (traumatic brain injury) Seizure Stroke Surgical History Hx of tubal ligation History of Social History Social History Household Members: Children Housing: Apartment Do you presently have visiting nurse or other home services: No Cigarettes Per Day: 1 Years Smoked: 28 Second Hand Smoke Exposure: No Advance Directives: No Advance Directives Information Provided: Yes service: No Current occupational status: employed Physical Exam ED Vital Signs: Vital Signs - 24 hr 02/28/24 13:29 Temperature 98.9 F Pulse Rate 68 Respiratory Rate 20 Blood Pressure 177/62 H Pulse Oximetry 99 Oxygen Delivery Method Room Air BMI result Body Mass Index 37.7 Const General: cooperative, comfortable and no acute distress Orientation/consciousness: patient oriented x3 Limitations: no limitations HENMT Head: Yes normal to inspection, Yes normocephalic and Yes atraumatic Ears: hearing grossly normal bilaterally General nose exam: Normal external nose present Face and sinus: Yes normal facial exam Mouth: Normal oral and palatal mucosa present, oropharynx normal and moist mucous membranes Teeth image: 1. Tooth 2. And 3 with tenderness palpation, no surrounding gingival erythema, edema or fluctuance. 2. Midline to patient's hard palate there is a hard mass noted, no fluctuance, surrounding erythema or warmth. 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 Throat: Yes posterior oropharynx normal Eyes General: appearance normal, both eyes and all related structures Eyelids: Yes eyelids normal Conjunctivae: conjunctivae normal Sclerae: sclerae normal Pupils: Equal, round and reactive pupils present EOM: EOMs intact bilaterally Neck Neck: Yes normal visual inspection, Yes full ROM and Yes no lymphadenopathy Lymphatic: no lymphadenopathy noted Chest Chest palpation & inspection: normal inspection of the chest Resp Effort & Inspection: normal respiratory effort and able to speak in complete sentences Auscultation: clear to auscultation bilaterally, no crackles, no rales, no rhonchi and no wheezes Cardio Rate: regular rate Rhythm: regular rhythm Heart sounds: S1 normal heart sound present and S2 normal heart sound present GI Inspection: Yes normal to inspection Skin General skin exam: no rashes or lesions noted Trauma: no lacerations or abrasions Wounds: no wounds Neuro Other: Contraction noted to her right upper extremity, patient reports is chronic. Tongue is midline, symmetric smile. General: patient oriented x3 and moves all extremities Cranial nerves: Yes Equal, round and reactive pupils present Extrem General: Yes normal to inspection Right upper extremity: normal to inspection Left upper extremity: normal to inspection Right lower extremity: normal to inspection Left lower extremity: normal to inspection Medications Administered Discontinued Medications Generic Name Dose Route Start Last Admin Trade Name Freq PRN Reason Stop Dose Admin Acetaminophen 975 mg 02/28/24 15:14 02/28/24 15:42 Acetaminophen 325 Mg Tablet PO 02/28/24 15:15 975 mg ONCE ONE Administration Amoxicillin/Clavulanate Potassium 875 mg 02/28/24 15:14 02/28/24 15:42 Amoxicillin/Potassium Clav 875 Mg Tablet PO 02/28/24 15:15 875 mg ONCE ONE Administration Medical Decision Making Medical Decision Making [facility] Narrative: This is a 43-year-old female who presents emergency department with complaints of right-sided facial pain and swelling x3 days. On arrival, blood pressure elevated at 177/62. She is speaking full sentences under no acute distress. She has no severe headache, states that the pain is in her tooth and radiates through the right side of her face. She has a history of a CVA with right-sided weakness however states that this is chronic for her. She is neurologically intact. She is tenderness palpation along tooth 2 And 3 with no surrounding gingival erythema or fluctuance to suggest abscess. Symptoms likely due to dental pain. 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 Advised to follow-up with dentist, she understands and agrees with plan. Discharged with antibiotics and given strict return precautions. She understands and agrees with plan. Patient stable discharge. Differential Diagnosis Differential Diagnoses: The differential diagnosis associated with the presentation includes Dental fracture, abscess, dental decay, TMJ Lab Data MDM Lab Attestation statement: I reviewed the patient's lab results. Negative flu, RSV, COVID, strep Labs: Lab Results 02/28/24 02/28/24 Range/Units 14:08 14:09 Influenza Type A (PCR) NEGATIVE (Negative) Influenza Type B (PCR) NEGATIVE (Negative) RSV RNA Qual (PCR) NEGATIVE (Negative) SARS-CoV-2 RNA (RT-PCR) NEGATIVE (Negative) S. pyogenes GrpA [facility] Negative (Negative) Discharge Plan Discharge Clinical Impression: Toothache Patient Disposition: Home, Self-Care Instructions: Toothache (ED) Additional Instructions: You were seen in the emergency department due to dental pain. We are treating you with an antibiotic. Please take full course even if your feeling better. Follow-up with the dental clinic. Take Tylenol and/or ibuprofen as needed for pain. If any new or worsening symptoms occur including but not limited to worsening swelling, fevers, severe headache, chest pain, shortness of breath, please return for re-evaluation. Prescriptions: New acetaminophen [Tylenol Extra Strength] 500 mg tablet 500 mg PO Q6H PRN (Reason: pain) Qty: 30 0RF ibuprofen 600 mg tablet 600 mg PO Q6H PRN (Reason: pain) Qty: 30 0RF amoxicillin-pot clavulanate 875-125 mg tablet 1 tab PO BID 10 Days Qty: 19 0RF No Action ferrous sulfate 325 mg (65 mg iron) tablet,delayed release (DR/EC) 325 mg PO DAILY Qty: 90 0RF Rx Instructions: Take 1 tablet qd, increase water intake and fiber to prevent constipation acetaminophen 325 mg tablet 2 tab PO Q6H PRN (Reason: Pain) Flovent Diskus 100 mcg/actuation blister with device 1 puff INHALATION BID albuterol sulfate [Proventil HFA] 90 mcg/actuation HFA aerosol inhaler 2 puff INHALATION Q4-6H PRN (Reason: Wheezing) ferrous sulfate [FeroSul] 325 mg (65 mg iron) tablet 325 mg PO Q OTHER DAY amitriptyline 25 mg tablet 25 mg PO BEDTIME hydroxyzine HCl 25 mg tablet 25 mg PO PRN Interventions: ED Discharge Assessment Last Done: 02/28/24 15:55 Discharge Date/Time: 02/28/24 16:02 Print Language: Guyanese
[2024-02-28 14:22] LABS: IDNOW Serial# 08D9AD1C; Strep A Nucleic Acid Negative (Negative)
[2024-02-28 14:51] LABS: Influenza A PCR NEGATIVE (Negative); Influenza B PCR NEGATIVE (Negative); Resp Syncy Virus RNA Qual PCR NEGATIVE (Negative); SARS COV2 PCR INHOUSE NEGATIVE (Negative)
[2024-02-28] MEDS: Acetaminophen 325 MG TABLET 975 MG PO (15:42)
[2024-02-28] MEDS: Amoxicillin/Potassium Clav 875 MG TABLET PO (15:42)
[2024-02-28 15:55] VITALS: BP 177/62; PULSE 68; RESP 20; TEMP 37.2; O2SAT 99
== END 2024-02-28 16:02 | disposition home or self-care (01) ==
PROVIDERS: Physician Assistant Medical; Emergency Provider Emergency Medicine
DX: K08.89 Other specified disorders of teeth and supporting structures (principal); J02.9 Acute pharyngitis, unspecified; R51.9 Headache, unspecified; Z03.818 Encounter for observation for suspected exposure to other biological agents ruled out
CPT/HCPCS: 0241U; 87651; 99283

== ENCOUNTER 2024-07-13 10:53 | Outpatient (REF) | payer MEDICAID, SELFPAY ==
[2024-07-13 13:27] LABS: MANUAL DIFF FLAG NO
[2024-07-13 13:38] LABS: Basophils Absolute Auto 0.1 X10*3/uL (0.0-0.2); Basophils Percent Auto 0.6 % (0-2); Eosinophils Absolute Auto 0.9 X10*3/uL (0.0-0.4); Eosinophils Percent Auto 9.7 % (0-4); Hematocrit 21.9 % (37.0-47.0); Imm Gran Abs Auto 0.11 X10*3/uL (0.00-0.03); Imm Gran Pct Auto 1.2 % (0.0-0.4); Lymphocytes Absolute Auto 2.3 X10*3/uL (1.2-4.9); Lymphocytes Percent Auto 26.4 % (20-40); Mean Corpuscular HGB Conc 26.5 g/dl (31.0-35.0); Mean Corpuscular Hemoglobin 17.9 pg (27.0-33.0); Mean Corpuscular Volume 67.6 fL (80.0-98.0); Mean Platelet Volume 10.7 fL (9.4-12.3); Monocytes Absolute Auto 0.5 X10*3/uL (0.1-1.2); Monocytes Percent Auto 5.9 % (2-11); NRBC Pct Auto 0.2 /100WBC (0.0-0.2); Neutrophils Percent Auto 56.2 % (45-73); Platelet Count 386 X10*3/uL (160-400); Red Blood Count 3.24 X10*6/uL (4.20-5.50); Red Cell Distribution Width 17.8 % (11.0-16.0); White Blood Count 8.9 X10*3/uL (4.8-10.8)
[2024-07-13 13:42] LABS: Hemoglobin 5.8 g/dl (12.0-16.0)
[2024-07-13 14:15] LABS: Alanine Aminotransferase 13 U/L (0-31); Albumin Level 3.8 g/dL (3.5-5.0); Alkaline Phosphatase 95 U/L (39-117); Anion Gap 12 (12-20); Aspartate Amino Transferase 33 U/L (5-31); Bilirubin Total 0.2 mg/dL (0.0-1.0); Blood Urea Nitrogen 12 mg/dL (9-16); Carbon Dioxide 24 mmol/L (22-29); Chloride 108 mmol/L (96-108); Cholesterol 145 mg/dL (<200); Estimated Glomerular Filt Rate > 60; Ferritin 4 ng/mL (10-250); Glucose Random 100 mg/dL (60-115); HDL Cholesterol 50 mg/dL (>40); LDL Cholesterol Calculated 75 mg/dL (<100); Potassium 4.6 mmol/L (3.3-5.1); Sodium 139 mmol/L (135-145); Total Protein 7.2 g/dL (6.5-8.0); Triglycerides 101 mg/dL (<150)
== END 2024-07-13 10:54 | disposition home or self-care (01) ==
LOC: HO.HHCL 10:53
PROVIDERS: Visit Provider Registered Nurse
DX: J45.40 Moderate persistent asthma, uncomplicated (principal)
CPT/HCPCS: 36415; 80053; 80061; 82728; 85025

== ENCOUNTER 2024-07-13 15:29 | Inpatient (IN) | payer MEDICAID, SELFPAY ==
[2024-07-13] VITALS (9 sets, daily range): BP systolic 120–138; BP diastolic 38–69; PULSE 72–90; RESP 16–20; TEMP 36.3–37.1; O2SAT 96–100; BMI 39.1
--- NOTE | 2024-07-13 15:45 | ED.GENADULT ---
HPI - General Adult General Chief complaint: Recheck/Abnormal Lab/Rx Stated complaint: Sent by for blood transfusion Time Seen by Provider: 07/13/24 16:05 History of Present Illness HPI narrative: Seen by . Related Data Home Medications ?Medication ?Instructions ?Recorded ?Confirmed albuterol sulfate 90 mcg/actuation 2 puff inhalation Q4-6H PRN 06/23/22 07/13/24 aerosol inhaler (Proventil HFA) Wheezing amitriptyline 25 mg tablet 25 mg PO BEDTIME 08/06/23 07/13/24 ferrous sulfate 325 mg (65 mg 650 mg PO DAILY 08/06/23 07/13/24 iron) tablet (FeroSul) hydroxyzine HCl 25 mg tablet 25 mg PO DAILY PRN Anxiety 08/06/23 07/13/24 acetaminophen 500 mg tablet 1,000 mg PO Q6H PRN pain 07/13/24 07/13/24 (Tylenol Extra Strength) cetirizine 10 mg tablet 10 mg PO DAILY 07/13/24 07/13/24 chlorthalidone 25 mg tablet 12.5 mg PO DAILY 07/13/24 07/13/24 lidocaine 5 % topical patch 1 patch topical Q12H PRN Pain 07/13/24 07/13/24 naproxen 500 mg tablet 1,000 mg PO DAILY 07/13/24 07/13/24 Allergies Allergy/AdvReac Type Severity Reaction Status Date / Time No Known Allergies Allergy Verified 07/13/24 15:42 [No Known Allergies*] PMFSH Past Medical History Medical History Hemorrhoids Menometrorrhagia Iron deficiency anemia Acute on chronic blood loss anemia TBI (traumatic brain injury) Seizure Stroke Surgical History Hx of tubal ligation History of Social History Social History Household Members: Children Housing: Apartment Do you presently have visiting nurse or other home services: No Cigarettes Per Day: 1 Years Smoked: 28 Second Hand Smoke Exposure: No Advance Directives: No Advance Directives Information Provided: No Do you have a plan to hurt others: No Plan service: No Current occupational status: employed Physical Exam ED Vital Signs: Vital Signs - 24 hr 07/13/24 15:37 07/13/24 17:00 07/13/24 17:18 Temperature 97.8 F 98.6 F 98.6 F Pulse Rate 90 72 72 Respiratory Rate 20 16 16 Blood Pressure 136/45 L 138/69 138/69 Pulse Oximetry 100 100 Oxygen Delivery Method Room Air Room Air 07/13/24 17:33 07/13/24 17:33 Temperature 97.4 F 97.4 F Pulse Rate 76 76 Respiratory Rate 20 20 Blood Pressure 134/59 L 134/59 L Pulse Oximetry 100 Oxygen Delivery Method Room Air BMI result Body Mass Index 39.1 Course Course Course Narrative: RME: 44-year-old female presents to the ED for anemia. Patient was sent from [facility] due to hemoglobin of 5.8. Patient states rectal bleeding, heavy vaginal bleeding, spontaneous no bleed. Patient will be brought back to the ED immediately. Labs type and screen ordered. Medications Administered Generic Name Dose Route Start Last Admin Trade Name Freq PRN Reason Stop Dose Admin Amitriptyline HCl 25 mg 07/13/24 21:00 07/13/24 21:47 Amitriptyline Hcl 25 Mg Tablet PO 25 mg BEDTIME CHARIS Administration Hydrochlorothiazide 12.5 mg 07/14/24 09:00 07/14/24 10:48 Hydrochlorothiazide 12.5 Mg Tablet PO 12.5 mg DAILY CHARIS Administration Ferric Sodium Gluconate 110 mls @ 100 mls/hr 07/14/24 09:30 07/14/24 10:41 Complex 125 mg/ Sodium IV 07/16/24 10:05 100 mls/hr Chloride DAILY CHARIS Administration Sodium Chloride 3 ml 07/14/24 00:00 07/14/24 07:28 0.9 % Sodium Chloride Flush 3 Ml Syringe IVFLUSH Not Given QSHIFT CHARIS Discontinued Medications Generic Name Dose Route Start Last Admin Trade Name Freq PRN Reason Stop Dose Admin Calcium Gluconate 1 gm in 50 mls @ 50 mls/hr 07/13/24 16:16 07/13/24 21:17 Calcium Gluconate IV 07/13/24 17:15 Infused ONCE ONE Infusion Medical Decision Making Lab Data 07/14/24 07:42 07/13/24 15:53 Labs: Lab Results 07/13/24 Range/Units 15:53 WBC 9.2 (4.8-10.8) X10*3/uL RBC 3.17 L (4.20-5.50) X10*6/uL Hgb 5.8 L* (12.0-16.0) g/dl Hct 21.1 L (37.0-47.0) % MCV 66.6 L (80.0-98.0) fL MCH 18.3 L (27.0-33.0) pg MCHC 27.5 L (31.0-35.0) g/dl RDW 17.5 H (11.0-16.0) % Plt Count 349 (160-400) X10*3/uL MPV 10.1 (9.4-12.3) fL Immature Gran % (Auto) 1.2 H (0.0-0.4) % Neut % (Auto) 57.7 (45-73) % Lymph % (Auto) 27.2 (20-40) % [place] % (Auto) 5.4 (2-11) % Eos % (Auto) 8.0 H (0-4) % Baso % (Auto) 0.5 (0-2) % Lymph # (Auto) 2.5 (1.2-4.9) X10*3/uL [place] # (Auto) 0.5 (0.1-1.2) X10*3/uL Eos # (Auto) 0.7 H (0.0-0.4) X10*3/uL Baso # (Auto) 0.1 (0.0-0.2) X10*3/uL Abs Immat Gran (auto) 0.11 H (0.00-0.03) X10*3/uL Absolute Neuts (auto) 5.3 (2.0-8.3) x10*3/uL Absolute Nucleated RBC 0.030 H (0.0-0.012) X10*3/uL Nucleated RBC % (auto) 0.3 H (0.0-0.2) /100WBC PT 11.6 (10.9-12.4) SEC INR 1.0 (0.9-1.1) APTT 27.1 (26.0-36.8) SEC Sodium 139 (135-145) mmol/L Potassium 3.9 (3.3-5.1) mmol/L Chloride 108 (96-108) mmol/L Carbon Dioxide 24 (22-29) mmol/L Anion Gap 11 L (12-20) BUN 13 (9-16) mg/dL Creatinine 0.68 (0.5-1.4) mg/dL Estim Creat Clear Calc 113.6 Estimated GFR > 60 Random Glucose 110 (60-115) mg/dL Calcium 8.7 (8.4-10.2) mg/dL Iron 9 L (30-160) mcg/dL TIBC 366 (228-428) mcg/dL % Saturation 2 L (15-50) % Unsat Iron Binding 357 ug/dL Ferritin 2 L (10-250) ng/mL Total Bilirubin 0.2 (0.0-1.0) mg/dL AST 23 (5-31) U/L ALT 13 (0-31) U/L Alkaline Phosphatase 105 (39-117) U/L Total Protein 7.1 (6.5-8.0) g/dL Albumin 3.7 (3.5-5.0) g/dL Beta HCG, Quant < 2 mIU/mL Blood Type O Positive Antibody Screen NEGATIVE Crossmatch See Detail Discharge Plan Discharge Clinical Impression: Acute on chronic anemia Patient Disposition: Admitted As Inpatient
[2024-07-13 15:59] LABS: MANUAL DIFF FLAG NO
[2024-07-13 16:02] LABS: Basophils Absolute Auto 0.1 X10*3/uL (0.0-0.2); Basophils Percent Auto 0.5 % (0-2); Eosinophils Absolute Auto 0.7 X10*3/uL (0.0-0.4); Imm Gran Abs Auto 0.11 X10*3/uL (0.00-0.03); Imm Gran Pct Auto 1.2 % (0.0-0.4); Lymphocytes Absolute Auto 2.5 X10*3/uL (1.2-4.9); Lymphocytes Percent Auto 27.2 % (20-40); Mean Corpuscular HGB Conc 27.5 g/dl (31.0-35.0); Mean Corpuscular Hemoglobin 18.3 pg (27.0-33.0); Mean Corpuscular Volume 66.6 fL (80.0-98.0); Mean Platelet Volume 10.1 fL (9.4-12.3); Monocytes Absolute Auto 0.5 X10*3/uL (0.1-1.2); Monocytes Percent Auto 5.4 % (2-11); NRBC Pct Auto 0.3 /100WBC (0.0-0.2); Neutrophils Absolute Auto 5.3 x10*3/uL (2.0-8.3); Neutrophils Percent Auto 57.7 % (45-73); Platelet Count 349 X10*3/uL (160-400); Red Blood Count 3.17 X10*6/uL (4.20-5.50); Red Cell Distribution Width 17.5 % (11.0-16.0); White Blood Count 9.2 X10*3/uL (4.8-10.8)
[2024-07-13 16:07] LABS: Prothrombin Time 11.6 SEC (10.9-12.4)
[2024-07-13 16:09] LABS: Partial Thromboplastin Time 27.1 SEC (26.0-36.8)
[2024-07-13 16:11] LABS: Hematocrit 21.1 % (37.0-47.0); Hemoglobin 5.8 g/dl (12.0-16.0)
--- NOTE | 2024-07-13 16:13 | ED.GENADULT ---
HPI - General Adult General Chief complaint: Recheck/Abnormal Lab/Rx Stated complaint: Sent by for blood transfusion Time Seen by Provider: 07/13/24 16:05 Source: patient Mode of arrival: ambulatory Limitations: no limitations History of Present Illness HPI narrative: This is a 44-year-old woman with a past medical history of TBI as a child, chronic blood loss anemia due to menorrhagia and hemorrhoids who presents for evaluation I would recommendation of PCP contributing found with a hemoglobin of 5.8. She states that she was feeling weak and tired. She states that she saw her primary care doctor and had low blood counts and was recommended to come to the emergency room for evaluation. She states that she had a spontaneous nosebleed 2 days prior to presentation while she was watching television. She states that her period started on July 05 and was initially heavy, but is now slowing down. She states that she has had ongoing heavy periods for several years now. She states that she is not currently on control. She states no chest pain or dyspnea. She states no recent fevers. She states no hematemesis or hematuria. She states no abdominal pain or back pain. She states no trauma. She states that she is taking iron pills. She states that she does not receive iron infusions. She states no previous transfusion reaction. Related Data Home Medications ?Medication ?Instructions ?Recorded ?Confirmed acetaminophen 325 mg tablet 2 tab PO Q6H PRN Pain 06/23/22 06/23/22 albuterol sulfate 90 mcg/actuation 2 puff inhalation Q4-6H PRN 06/23/22 06/23/22 aerosol inhaler (Proventil HFA) Wheezing fluticasone propionate 100 1 puff inhalation BID asthma 06/23/22 06/23/22 mcg/actuation blister powder for inhalation (Flovent Diskus) amitriptyline 25 mg tablet 25 mg PO BEDTIME 08/06/23 ferrous sulfate 325 mg (65 mg 325 mg PO Q OTHER DAY 08/06/23 iron) tablet (FeroSul) hydroxyzine HCl 25 mg tablet 25 mg PO PRN 08/06/23 Previous Rx's ?Medication ?Instructions ?Recorded ferrous sulfate 325 mg (65 mg 325 mg PO DAILY #90 tabs 08/07/23 iron) tablet,delayed release acetaminophen 500 mg tablet 500 mg PO Q6H PRN pain #30 tabs 02/28/24 (Tylenol Extra Strength) amoxicillin 875 mg-potassium 1 tab PO BID 10 days #19 tabs 02/28/24 clavulanate 125 mg tablet ibuprofen 600 mg tablet 600 mg PO Q6H PRN pain #30 tabs 02/28/24 Allergies Allergy/AdvReac Type Severity Reaction Status Date / Time No Known Allergies Allergy Verified 07/13/24 15:42 [No Known Allergies*] Review of Systems Review of Systems: ROS as per HPI [facility] Past Medical History Medical History Hemorrhoids Menometrorrhagia Iron deficiency anemia Acute on chronic blood loss anemia TBI (traumatic brain injury) Seizure Stroke Surgical History Hx of tubal ligation History of Social History Social History Household Members: Children Housing: Apartment Do you presently have visiting nurse or other home services: No Cigarettes Per Day: 1 Years Smoked: 28 Second Hand Smoke Exposure: No Advance Directives: No Advance Directives Information Provided: No Do you have a plan to hurt others: No Plan service: No Current occupational status: employed Physical Exam ED Vital Signs: Vital Signs - 24 hr 07/13/24 15:37 Temperature 97.8 F Pulse Rate 90 Respiratory Rate 20 Blood Pressure 136/45 L Pulse Oximetry 100 Oxygen Delivery Method Room Air BMI result Body Mass Index 39.1 Gen: NAD, AOx3 HEENT: NCAT, EOMI, normal conjunctiva CV: RRR Pulm: CTAB, no increased work of breathing GI: Soft, NTND, no rebound, guarding or rigidity Neuro: Grossly non focal Medical Decision Making Medical Decision Making MDM Narrative: Differential diagnosis includes, but is not limited to acute on chronic blood-loss anemia, menorrhagia, hemorrhoids, epistaxis. Patient is afebrile and hemodynamically stable on room air. Shock index is normal at 0.66. There is a very low clinical suspicion for occult shock. Exam is benign and reassuring. There is no active epistaxis. Patient reports no active rectal bleeding and states that she only notices blood when she wipes. She states her vaginal bleeding has decreased. She may benefit from inpatient OBGYN consult versus continued outpatient OBGYN follow-up. There is no indication for emergent OBGYN consultation. I reviewed labs as below. I have ordered 2 units packed red blood cells for transfusion. We will empirically provide 1 g IV calcium gluconate given need for 2 unit of PRBC in the event the patient needs additional pRBC transfusion while inpatient and concern for a potential transfusion associated hypocalcemia secondary to chelation. I discussed the patient's case and management with admitting hospitalist. The patient is admitted in stable and improved condition. Critical Care Time: A total of 35 minutes spent in direct patient care with coordinating critical resuscitation, procedures, reviewing records, discussing with consultants, reviewing labs, and/or managing patient. Admission/Observation Consideration of admission/observation: Escalation of care including admission/observation considered Consult Healthcare Provider Management of the patient was discussed with: Hospitalist Lab Data MDM Lab Attestation statement: I reviewed the patient's lab results. I independently reviewed and interpreted patient's labs including CBC, metabolic panel and coagulation studies. Labs are notable for hemoglobin of 5.8. 07/13/24 15:53 07/13/24 15:53 Labs: Lab Results 07/13/24 Range/Units 15:53 WBC 9.2 (4.8-10.8) X10*3/uL RBC 3.17 L (4.20-5.50) X10*6/uL Hgb 5.8 L* (12.0-16.0) g/dl Hct 21.1 L (37.0-47.0) % MCV 66.6 L (80.0-98.0) fL MCH 18.3 L (27.0-33.0) pg MCHC 27.5 L (31.0-35.0) g/dl RDW 17.5 H (11.0-16.0) % Plt Count 349 (160-400) X10*3/uL MPV 10.1 (9.4-12.3) fL Immature Gran % (Auto) 1.2 H (0.0-0.4) % Neut % (Auto) 57.7 (45-73) % Lymph % (Auto) 27.2 (20-40) % [place] % (Auto) 5.4 (2-11) % Eos % (Auto) 8.0 H (0-4) % Baso % (Auto) 0.5 (0-2) % Lymph # (Auto) 2.5 (1.2-4.9) X10*3/uL [place] # (Auto) 0.5 (0.1-1.2) X10*3/uL Eos # (Auto) 0.7 H (0.0-0.4) X10*3/uL Baso # (Auto) 0.1 (0.0-0.2) X10*3/uL Abs Immat Gran (auto) 0.11 H (0.00-0.03) X10*3/uL Absolute Neuts (auto) 5.3 (2.0-8.3) x10*3/uL Absolute Nucleated RBC 0.030 H (0.0-0.012) X10*3/uL Nucleated RBC % (auto) 0.3 H (0.0-0.2) /100WBC PT 11.6 (10.9-12.4) SEC INR 1.0 (0.9-1.1) APTT 27.1 (26.0-36.8) SEC Sodium 139 (135-145) mmol/L Potassium 3.9 (3.3-5.1) mmol/L Chloride 108 (96-108) mmol/L Carbon Dioxide 24 (22-29) mmol/L Anion Gap 11 L (12-20) BUN 13 (9-16) mg/dL Creatinine 0.68 (0.5-1.4) mg/dL Estim Creat Clear Calc 113.6 Estimated GFR > 60 Random Glucose 110 (60-115) mg/dL Calcium 8.7 (8.4-10.2) mg/dL Total Bilirubin 0.2 (0.0-1.0) mg/dL AST 23 (5-31) U/L ALT 13 (0-31) U/L Alkaline Phosphatase 105 (39-117) U/L Total Protein 7.1 (6.5-8.0) g/dL Albumin 3.7 (3.5-5.0) g/dL Blood Type O Positive Crossmatch See Detail Discharge Plan Discharge Clinical Impression: Acute on chronic anemia Patient Disposition: Admitted As Inpatient Prescriptions: No Action ferrous sulfate 325 mg (65 mg iron) tablet,delayed release (DR/EC) 325 mg PO DAILY Qty: 90 0RF Rx Instructions: Take 1 tablet qd, increase water intake and fiber to prevent constipation acetaminophen 325 mg tablet 2 tab PO Q6H PRN (Reason: Pain) Flovent Diskus 100 mcg/actuation blister with device 1 puff INHALATION BID albuterol sulfate [Proventil HFA] 90 mcg/actuation HFA aerosol inhaler 2 puff INHALATION Q4-6H PRN (Reason: Wheezing) acetaminophen [Tylenol Extra Strength] 500 mg tablet 500 mg PO Q6H PRN (Reason: pain) Qty: 30 0RF ibuprofen 600 mg tablet 600 mg PO Q6H PRN (Reason: pain) Qty: 30 0RF amoxicillin-pot clavulanate 875-125 mg tablet 1 tab PO BID 10 Days Qty: 19 0RF ferrous sulfate [FeroSul] 325 mg (65 mg iron) tablet 325 mg PO Q OTHER DAY amitriptyline 25 mg tablet 25 mg PO BEDTIME hydroxyzine HCl 25 mg tablet 25 mg PO PRN Print Language: Kazakh
[2024-07-13 16:14] LABS: Alanine Aminotransferase 13 U/L (0-31); Albumin Level 3.7 g/dL (3.5-5.0); Alkaline Phosphatase 105 U/L (39-117); Anion Gap 11 (12-20); Aspartate Amino Transferase 23 U/L (5-31); Bilirubin Total 0.2 mg/dL (0.0-1.0); Blood Urea Nitrogen 13 mg/dL (9-16); Calcium 8.7 mg/dL (8.4-10.2); Carbon Dioxide 24 mmol/L (22-29); Chloride 108 mmol/L (96-108); Creatinine Clr Calc Pharmacy 113.6; Estimated Glomerular Filt Rate > 60; Glucose Random 110 mg/dL (60-115); Potassium 3.9 mmol/L (3.3-5.1); Sodium 139 mmol/L (135-145); Total Protein 7.1 g/dL (6.5-8.0)
[2024-07-13 16:53] LABS: HCG Quantitative < 2 mIU/mL
--- NOTE | 2024-07-13 17:31 | PC.NURSE ---
patient blood transfusion started at 100ml/hr, patient tolerating well, remains alert and oriented x3, patient in normal sinus rhythm on the tele monitor.
[2024-07-13 17:50] LABS: Iron 9 mcg/dL (30-160); Percent Iron Saturation 2 % (15-50); Total Iron Binding Capacity 366 mcg/dL (228-428); Unsaturated Iron Binding 357 ug/dL
--- NOTE | 2024-07-13 18:03 | PHA.MEDREC ---
Addendum entered by Vu Davila 07/13/24 19:29: reviewed Original Note: Pharmacy Consult ? Medication Reconciliation Pharmacy has completed the medication reconciliation. Confirmed medications with patient. She confirmed she is taking Ferrous Sulfate 325mg and states she states she is taking 2 tabs daily and claims it is not helping doing 1 daily and that's why she stated 2 BID. She confirmed she is still taking the Hydroxyzine 25mg tabs as needed still for Anxiety. She states she is taking a Seizure medication but does not remember the name of it but stated she fills it at [facility], I called and spoke to [facility] and they claimed they have no history of a seizure medication being filled with them. The patient claims he took 2 Naproxen 500mg tabs and 2 Tylenol 500mg tabs this morning, everything else was yesterday.
--- NOTE | 2024-07-13 18:05 | P.HPHOSP_ITS ---
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, chronic blood loss anemia due to menorrhagia and hemorrhoids requiring prior hospitalization and blood transfusion, presented to [facility] due to symptoms of weakness and tiredness and low blood count was referred by PCP, according to patient she started with heavy periods July 05 and continued to have ongoing bleeding, 2 days ago she had spontaneous nosebleed, patient is being followed by OBGYN but currently not on control pills, she denies lightheadedness or dizziness, no chest pain, no palpitation, no shortness of breath, as per patient she is on iron pills with no significant improvement, patient denies GI bleed, with no hematemesis, no melena has been using Naprosyn for pain,. Review of Systems 2 Review of Systems: General no headache no dizziness no fever chills. CVS no chest pain, no palpitation. Respiratory no cough no sob Gastrointestinal no nausea no vomiting, lower abdominal cramps All other system reviewed and are negative. [facility] Medical History Hemorrhoids Menometrorrhagia Iron deficiency anemia Acute on chronic blood loss anemia TBI (traumatic brain injury) Seizure Stroke Surgical History Hx of tubal ligation History of Social History Household Members: Children Housing: Apartment Do you presently have visiting nurse or other home services: No Cigarettes Per Day: 1 Years Smoked: 28 Second Hand Smoke Exposure: No Advance Directives: No Advance Directives Information Provided: No Do you have a plan to hurt others: No Plan service: No Current occupational status: employed Meds Allergies Allergy/AdvReac Type Severity Reaction Status Date / Time No Known Allergies Allergy Verified 07/13/24 15:42 [No Known Allergies*] Active Medications: Current Medications Acetaminophen (Acetaminophen 325 Mg Tablet) 650 mg PO Q6H PRN PRN Reason: Pain, Mild (Pain Scale 1-3), fever or headache Calcium Carbonate (Calcium Carbonate 750 Mg Tab.Chew) 750 mg PO Q4H PRN PRN Reason: Heartburn Magnesium Hydroxide (Milk Of Magnesia 30 Ml Oral.Susp) 30 ml PO DAILY PRN PRN Reason: Constipation Melatonin (Melatonin 3 Mg Tablet) 6 mg PO BEDTIME PRN PRN Reason: Insomnia Ondansetron HCl (Ondansetron Hcl 4 Mg/2 Ml Vial) 4 mg IVPUSH Q8H PRN PRN Reason: Nausea and Vomiting Polyethylene Glycol (Polyethylene Glycol 3350 17 Gm Powd.Pack) 17 gm PO DAILY PRN PRN Reason: Constipation Sodium Chloride (0.9 % Sodium Chloride Flush 3 Ml Syringe) [facility] Medications ?Medication ?Instructions ?Recorded ?Confirmed ?Last Taken ?Type albuterol sulfate 90 mcg/actuation 2 puff inhalation Q4-6H PRN 06/23/22 07/13/24 Unknown History aerosol inhaler (Proventil HFA) Wheezing amitriptyline 25 mg tablet 25 mg PO BEDTIME 08/06/23 07/13/24 07/12/24 History ferrous sulfate 325 mg (65 mg 650 mg PO BID 08/06/23 07/13/24 07/12/24 History iron) tablet (FeroSul) hydroxyzine HCl 25 mg tablet 25 mg PO DAILY PRN Anxiety 08/06/23 07/13/24 Unknown History acetaminophen 500 mg tablet 1,000 mg PO Q6H PRN pain 07/13/24 07/13/24 07/13/24 History (Tylenol Extra Strength) cetirizine 10 mg tablet 10 mg PO DAILY 07/13/24 07/13/24 07/12/24 History chlorthalidone 25 mg tablet 12.5 mg PO DAILY 07/13/24 07/13/24 07/12/24 History lidocaine 5 % topical patch 1 patch topical Q12H PRN Pain 07/13/24 07/13/24 Unknown History naproxen 500 mg tablet 500 mg PO BID 07/13/24 07/13/24 07/13/24 History Physical Exam 2 Vital Signs and Narrative: Vital Signs: Last Vital Signs Temp 97.4 F 07/13/24 17:33 Pulse 76 07/13/24 17:33 Resp 20 07/13/24 17:33 BP 134/59 L 07/13/24 17:33 Pulse Ox 100 11/13/24 17:33 O2 Del Method Room Air 07/13/24 17:33 BMI result Body Mass Index 39.1 Const: Other: General resting comfortably in no acute distress. Anicteric sclera, moist mucous membrane Neck no JVD. CVS regular rate rhythm, Respiratory lungs clear to auscultation, no respiratory distress, no wheeze, no rhonchi. Gastrointestinal abdomen soft, non tender, bowel sounds audible, no guarding , no rigidity. Extremities no edema. Neuro right hemiparesis, with right hand contraction deformity, dysarthria Skin no rash Psych appropriate affect Results Labs 07/13/24 15:53 07/13/24 15:53 Labs: Laboratory Results - last 24 hr 07/13/24 15:53 MCV 66.6 L MCH 18.3 L MCHC 27.5 L RDW 17.5 H Plt Count 349 MPV 10.1 Immature Gran % (Auto) 1.2 H Neut % (Auto) 57.7 Lymph % (Auto) 27.2 [place] % (Auto) 5.4 Eos % (Auto) 8.0 H Baso % (Auto) 0.5 Lymph # (Auto) 2.5 [place] # (Auto) 0.5 Eos # (Auto) 0.7 H Baso # (Auto) 0.1 Abs Immat Gran (auto) 0.11 H Absolute Neuts (auto) 5.3 Absolute Nucleated RBC 0.030 H Nucleated RBC % (auto) 0.3 H PT 11.6 INR 1.0 APTT 27.1 Anion Gap 11 L Estim Creat Clear Calc 113.6 Estimated GFR > 60 Random Glucose 110 Calcium 8.7 Iron 9 L TIBC 366 % Saturation 2 L Unsat Iron Binding 357 Total Bilirubin 0.2 AST 23 ALT 13 Alkaline Phosphatase 105 Total Protein 7.1 Albumin 3.7 Beta HCG, Quant < 2 Blood Type O Positive Antibody Screen NEGATIVE Crossmatch See Detail Assessment and Plan (1) Acute on chronic anemia: Status: Acute (2) Abnormal uterine bleeding (AUB): Status: Acute Plan 44-year-old female patient with past medical history of TBI as a child, chronic blood-loss anemia due to menorrhagia and hemorrhoid, history of CVA with right hemiparesis presented to [facility] due to weakness tiredness and anemia referred by PCP. Acute on chronic symptomatic blood loss anemia likely due to iron deficiency With menorrhagia and hemorrhoids Will obtain iron studies Receiving 2 units of packed RBC, follow CBC at a.m. Recommend to continue iron supplements at discharge, recommend outpatient OBGYN follow-up History of intermittent asthma No acute exacerbation noted continue inhalers Traumatic brain injury Not on antiepileptic medications History of CVA with residual right hemiparesis and speech impairment ambulate with a cane. DVT prophylaxis compression boots avoid anticoagulation due to anemia Full code In my clinical judgment patient require 2 night inpatient hospitalization for blood transfusion and monitoring of CBC Quality Stroke Does the patient have a stroke diagnosis?: No VTE Prior VTE?: No VTE Risk Level:: Medical - moderate - high VTE Device Contraindication: N/A - Device Ordered VTE Drug Contraindication: Treatment Not Indicated
[2024-07-13 18:11] LABS: Ferritin 2 ng/mL (10-250)
--- NOTE | 2024-07-13 19:10 | PC.NURSE ---
this rn received report from Di garcia
--- NOTE | 2024-07-13 20:25 | PC.NURSE ---
pt first unit of blood completed, vitals wnl, lungs clear no s/s of reaction.
[2024-07-13] MEDS: Calcium Gluconate/NaCl,Iso-Osm 1 GM/50 ML PLAST..BAG IV (20:29)
--- NOTE | 2024-07-13 21:30 | PC.NURSE ---
at 1933 pt receiving her first unit of rbc, no s/s of reaction noted. iv site wnl. vitals stable.
[2024-07-13] MEDS: Amitriptyline HCl 25 MG TABLET PO (21:47)
--- NOTE | 2024-07-13 22:18 | PC.NURSE ---
pt 2nd unit of rbc infusing, no s/s of reaction. pt resting comfortably.
--- NOTE | 2024-07-13 22:40 | PC.NURSE ---
pt has no s/s of reaction 2nd unit infusing rbc mnt 100cc/hr
[2024-07-14] VITALS (8 sets, daily range): BP systolic 107–160; BP diastolic 53–73; PULSE 58–82; RESP 15–20; TEMP 36.4–36.9; O2SAT 97–99; BMI 40.6
--- NOTE | 2024-07-14 01:18 | PC.NURSE ---
pt sleeping no s/s of blood transfusion reaction. pt still receiving the 2nd unit of rbc's
--- NOTE | 2024-07-14 04:06 | MHC.EDTECH ---
0400 rounding done vitals taken ,Patient asleep ,no apparent distress noted ,Call mcdonough within Pt reach .
--- NOTE | 2024-07-14 06:30 | MHC.EDTECH ---
0600 rounding done ,vitals taken Patient slept most of the night ,up to bedside commode ,void x 1 .
[2024-07-14 08:01] LABS: Hematocrit 27.7 % (37.0-47.0); Hemoglobin 8.3 g/dl (12.0-16.0); Mean Corpuscular Hemoglobin 21.1 pg (27.0-33.0); Mean Corpuscular Volume 70.5 fL (80.0-98.0); NRBC Pct Auto 0.4 /100WBC (0.0-0.2); PLT CLUMP 1; Red Blood Count 3.93 X10*6/uL (4.20-5.50); Red Cell Distribution Width 20.3 % (11.0-16.0)
[2024-07-14 08:57] LABS: Mean Platelet Volume 10.6 fL (9.4-12.3); Platelet Count 264 X10*3/uL (160-400); White Blood Count 7.8 X10*3/uL (4.8-10.8)
--- NOTE | 2024-07-14 09:19 | MHC.CM.PN ---
Pt lives with her mother, PCP is confirmed: [facility]. 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 She has not used [facility] services or been to [facility]. For DME, she has a cane and a brace for her hand. DCP: home with family assistance. She will need assistance with transport home at DC. CM to follow and assist with DC plan.
[2024-07-14] MEDS: Sodium Ferric Gluconat/Sucrose 125 MG in 0.9 % Sodium Chloride 100 ML 100 MG IV (10:41)
[2024-07-14] MEDS: hydroCHLOROthiazide 12.5 MG TABLET PO (10:48)
--- NOTE | 2024-07-14 12:00 | PC.NURSE ---
Awaiting second bag of Iron from lab at this time
--- NOTE | 2024-07-14 13:17 | P.PNIM_ITS ---
Subjective Subjective Date of Service: 07/14/24 Interval History: Seen and examined this morning Follow-up for anemia No bleeding, no sob, no dizziness Review of Systems Review of Systems: Yes all other systems are reviewed and are negative Constitutional Constitutional: Denies chills and Denies fever(s) Cardiovascular Cardiovascular: Denies chest pain, Denies palpitations and Denies dyspnea Respiratory Respiratory: Denies cough and Denies dyspnea Gastrointestinal Gastrointestinal: Denies abdominal pain Endocrine Endocrine: Denies palpitations Physical Exam 2 Vital Signs: Vital Signs: Last Vital Signs Temp 97.5 F 07/14/24 09:40 Pulse 72 07/14/24 11:20 Resp 19 07/14/24 11:20 BP 145/61 H 07/14/24 11:20 Pulse Ox 99 07/14/24 11:20 O2 Del Method Room Air 07/14/24 11:20 BMI result Body Mass Index 39.1 Const: General: cooperative, comfortable, alert and awake Nutritional Appearance: obese Orientation/consciousness: patient oriented x3 Resp: Effort & Inspection: normal respiratory effort, able to speak in complete sentences, no respiratory distress and no use of accessory muscles Cardio: Rate: regular rate GI: Inspection: No distended Palpation (GI): Soft to palpation and nontender Neuro: General: patient oriented x3 and moves all extremities Objective Data Active Medications Acetaminophen (Acetaminophen 325 Mg Tablet) 650 mg PO Q6H PRN PRN Reason: Pain, Mild (Pain Scale 1-3), fever or headache Albuterol Sulfate (Albuterol Sulfate 90 Mcg 8 Gm Inhaler) 2 puff INHALE Q4H PRN PRN Reason: Wheezing Amitriptyline HCl (Amitriptyline Hcl 25 Mg Tablet) 25 mg PO BEDTIME [facility] Last Admin: 07/13/24 21:47 Dose: 25 mg Documented By: MCTA Calcium Carbonate (Calcium Carbonate 750 Mg Tab.Chew) 750 mg PO Q4H PRN PRN Reason: Heartburn Hydrochlorothiazide (Hydrochlorothiazide 12.5 Mg Tablet) 12.5 mg PO DAILY [facility] Last Admin: 07/14/24 10:48 Dose: 12.5 mg Documented By: JACQUES Hydroxyzine HCl (Hydroxyzine Hcl 25 Mg Tablet) 25 mg PO DAILY PRN PRN Reason: Anxiety Ferric Sodium Gluconate Complex 125 mg/ Sodium Chloride 110 mls @ 100 mls/hr IV DAILY [facility] Stop: 07/16/24 10:05 Last Infusion: 07/14/24 13:07 Dose: Infused Documented By: DORI Magnesium Hydroxide (Milk Of Magnesia 30 Ml Oral.Susp) 30 ml PO DAILY PRN PRN Reason: Constipation Melatonin (Melatonin 3 Mg Tablet) 6 mg PO BEDTIME PRN PRN Reason: Insomnia Ondansetron HCl (Ondansetron Hcl 4 Mg/2 Ml Vial) 4 mg IVPUSH Q8H PRN PRN Reason: Nausea and Vomiting Polyethylene Glycol (Polyethylene Glycol 3350 17 Gm Powd.Pack) 17 gm PO DAILY PRN PRN Reason: Constipation Sodium Chloride (0.9 % Sodium Chloride Flush 3 Ml Syringe) 3 ml IVFLUSH QSHIFT CHARIS Last Admin: 07/14/24 07:28 Dose: Not Given Documented By: CHAPARRO Non-Admin Reason: See Note Labs 07/14/24 07:42 07/13/24 15:53 Labs: Laboratory Results - last 24 hr 07/13/24 07/14/24 15:53 07:42 MCV 66.6 L 70.5 L MCH 18.3 L 21.1 L MCHC 27.5 L 30.0 L RDW 17.5 H 20.3 H Plt Count 349 264 MPV 10.1 10.6 Immature Gran % (Auto) 1.2 H Neut % (Auto) 57.7 Lymph % (Auto) 27.2 [place] % (Auto) 5.4 Eos % (Auto) 8.0 H Baso % (Auto) 0.5 Lymph # (Auto) 2.5 [place] # (Auto) 0.5 Eos # (Auto) 0.7 H Baso # (Auto) 0.1 Abs Immat Gran (auto) 0.11 H Absolute Neuts (auto) 5.3 Absolute Nucleated RBC 0.030 H 0.030 H Nucleated RBC % (auto) 0.3 H 0.4 H PT 11.6 INR 1.0 APTT 27.1 Anion Gap 11 L Estim Creat Clear Calc 113.6 Estimated GFR > 60 Random Glucose 110 Calcium 8.7 Iron 9 L TIBC 366 % Saturation 2 L Unsat Iron Binding 357 Ferritin 2 L Total Bilirubin 0.2 AST 23 ALT 13 Alkaline Phosphatase 105 Total Protein 7.1 Albumin 3.7 Beta HCG, Quant < 2 Blood Type O Positive Antibody Screen NEGATIVE Crossmatch See Detail Assessment and Plan (1) Acute on chronic anemia: Status: Acute Plan 44-year-old female patient with past medical history of TBI as a child, chronic blood-loss anemia due to menorrhagia and hemorrhoid, history of CVA with right hemiparesis presented to [facility] due to weakness tiredness and anemia referred by PCP. 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 DVT prophylaxis compression boots avoid anticoagulation due to anemia Full code In my clinical judgment patient requires ongoing inpatient hospitalization for blood transfusion and monitoring of CBC Quality Stroke Does the patient have a stroke diagnosis?: No VTE Prior VTE?: No VTE Risk Level:: Medical - moderate - high VTE Device Contraindication: N/A - Device Ordered VTE Drug Contraindication: Treatment Not Indicated
[2024-07-14] MEDS: 0.9 % Sodium Chloride Flush 3 ML SYRINGE IVFLUSH (19:56)
[2024-07-14] MEDS: Melatonin 3 MG TABLET 6 MG PO (20:08)
[2024-07-14] MEDS: hydrOXYzine HCL 25 MG TABLET PO (20:09)
[2024-07-14] MEDS: Acetaminophen 325 MG TABLET 650 MG PO (20:09)
[2024-07-14] MEDS: Amitriptyline HCl 25 MG TABLET PO (20:09)
[2024-07-15 07:11] VITALS: BP 132/62; PULSE 68; RESP 18; TEMP 36.4; O2SAT 97
[2024-07-15] MEDS: Acetaminophen 325 MG TABLET 650 MG PO (08:01)
[2024-07-15] MEDS: hydroCHLOROthiazide 12.5 MG TABLET PO (08:02)
[2024-07-15] MEDS: 0.9 % Sodium Chloride Flush 3 ML SYRINGE IVFLUSH (08:04)
[2024-07-15] MEDS: Sodium Ferric Gluconat/Sucrose 125 MG in 0.9 % Sodium Chloride 100 ML 100 MG IV (09:12)
[2024-07-15 09:25] LABS: Hematocrit 29.5 % (37.0-47.0); Hemoglobin 8.6 g/dl (12.0-16.0); Mean Corpuscular HGB Conc 29.2 g/dl (31.0-35.0); Mean Corpuscular Hemoglobin 20.4 pg (27.0-33.0); Mean Corpuscular Volume 70.1 fL (80.0-98.0); Mean Platelet Volume 10.5 fL (9.4-12.3); NRBC Pct Auto 0.4 /100WBC (0.0-0.2); Platelet Count 333 X10*3/uL (160-400); Red Blood Count 4.21 X10*6/uL (4.20-5.50); Red Cell Distribution Width 21.8 % (11.0-16.0); White Blood Count 8.6 X10*3/uL (4.8-10.8)
--- NOTE | 2024-07-15 10:49 | MHC.CM.PN ---
Per ROUNDS discussion, Patient is not yet medically cleared for dc (pending stable CBC); home is the goal and CM will continue to follow.
[2024-07-15 11:25] VITALS: BP 126/60; PULSE 69; RESP 18; TEMP 36.6; O2SAT 98
--- NOTE | 2024-07-15 11:35 | P.DS_ITS ---
DS: Providers Provider Date of Service: 07/15/24 Date of admission: 07/13/24 18:01 Date of discharge: 07/15/24 Primary care physician: ADINA Cagle Attending physician on discharge: Preet Blake Discharging clinician: Katherine Abad DS: Diagnosis Discharge Diagnosis (1) Acute on chronic anemia: Status: Acute DS: Summary Hospital Course Hospital Course: From H&P on the day of admission 44-year-old female with past medical history significant for TBI as a child, prior CVA with residual right-sided weakness and dysarthria, chronic blood loss anemia due to menorrhagia and hemorrhoids requiring prior hospitalization and blood transfusion, presented to [facility] due to symptoms of weakness and tiredness and low blood count was referred by PCP, according to patient she started with heavy periods July 05 and continued to have ongoing bleeding, 2 days ago she had spontaneous nosebleed, patient is being followed by OBGYN but currently not on control pills, she denies lightheadedness or dizziness, no chest pain, no palpitation, no shortness of breath, as per patient she is on iron pills with no significant improvement, patient denies GI bleed, with no hematemesis, no melena has been using Naprosyn for pain,. Acute on chronic symptomatic blood loss anemia likely due to iron deficiency due to menorrhagia and hemorrhoids. has been following with [employer] outpatient. Had been planned for endometrial biopsy, but has changed providers and this has not been completed yet. She does have a follow up appointment scheduled. She received 2U rbc with improvement in H/H and symptoms. Iron studies checked - iron 9, TIBC 366, % sat 2, ferritin 2, received 2 doses of IV iron. Recommend to continue iron supplements at discharge, and outpatient OBGYN follow-up. Has remained hemodynamically stable Time Attestation Discharge Coordination Time (in mins): 36 Quality: Safe Use of Opioids Does Pt have an Active Cancer Diagnosis on the Problem List?: No Quality: Stroke Does the patient have a stroke diagnosis?: No Physical Exam Vital Signs: Vital Signs: Last Vital Signs Temp 97.8 F 07/15/24 11:25 Pulse 69 07/15/24 11:25 Resp 18 07/15/24 11:25 BP 126/60 07/15/24 11:25 Pulse Ox 98 07/15/24 11:25 O2 Del Method Room Air 07/15/24 11:25 BMI result Body Mass Index 40.6 Const: General: cooperative, comfortable, alert and awake Nutritional Appearance: obese Orientation/consciousness: patient oriented x3 Resp: Effort & Inspection: normal respiratory effort, able to speak in complete sentences, no respiratory distress and no use of accessory muscles Cardio: Rate: regular rate GI: Inspection: No distended Palpation (GI): Soft to palpation and nontender Neuro: General: patient oriented x3 and moves all extremities DS: Data Data Completed and Pending Labs on day of discharge: Laboratory Results - last 24 hr 07/15/24 09:07 WBC 8.6 RBC 4.21 Hgb 8.6 L Hct 29.5 L MCV 70.1 L MCH 20.4 L MCHC 29.2 L RDW 21.8 H Plt Count 333 D MPV 10.5 Absolute Nucleated RBC 0.030 H Nucleated RBC % (auto) 0.4 H Discharge Plan Discharge Anticipated Discharge Date/Time: 07/15/24 11:41 Patient Disposition: Home, Self-Care Discharge Diagnosis: symptomatic iron deficiency anemia Referrals: Salima Mccann, ADINA [Primary Care Provider] - 1 Week Discharge Medications: Continued albuterol sulfate [Proventil HFA] 90 mcg/actuation HFA aerosol inhaler 2 puff INHALATION Q4-6H PRN (Reason: Wheezing) cetirizine 10 mg tablet 10 mg PO DAILY chlorthalidone 25 mg tablet 12.5 mg PO DAILY lidocaine 5 % adhesive patch,medicated 1 patch topical Q12H PRN (Reason: Pain) acetaminophen [Tylenol Extra Strength] 500 mg tablet 1,000 mg PO Q6H PRN (Reason: pain) ferrous sulfate [FeroSul] 325 mg (65 mg iron) tablet 650 mg PO DAILY amitriptyline 25 mg tablet 25 mg PO BEDTIME hydroxyzine HCl 25 mg tablet 25 mg PO DAILY PRN (Reason: Anxiety) Held naproxen 500 mg tablet 1,000 mg PO DAILY Hold Instructions: minimize use of NSAIDs if possible Discharge Orders: Discharge Order (Routine); Ordered 07/15/24 Ordered By: Katherine Abad Activity on Discharge: As tolerated Stand Alone Forms: Patient Portal Discharge page Print Language: Luxembourgish Care Plan Goals: See below Health Concerns: iron deficiency anemia - received 2 units of blood. hemoglobin has remained stable. Plan of Treatment: take oral iron replacement daily as prescribed call to schedule follow-up appointment with tree sapper for definitive management of ongoing heavy menstrual periods Call to schedule follow-up appointment with PCP for close monitoring of CBC Call PCP or return to the emergency department with any new or worsening symptoms limit use of NSAIDs if possible Assessment: See discharge summary
--- NOTE | 2024-07-15 11:51 | MHC.CM.PN ---
Patient has been medically cleared for dc to home today, self care.
--- NOTE | 2024-07-15 12:08 | MHC.CM.PN ---
Patient will dc to home today at 2PM, [place] [facility]. RN is aware.
== END 2024-07-15 15:15 | disposition home or self-care (01) | DRG 663 ==
LOC: HO.ED 16:43 → HO.EDOVER 18:19 → HO.IMC 07-14 16:31
PROVIDERS: Physician Assistant; Admitting Provider Hospitalist; Emergency Provider Emergency Medicine; PCP Registered Nurse; Visit Provider Physician Assistant Medical
DX: D62 Acute posthemorrhagic anemia (principal); I69.351 Hemiplegia and hemiparesis following cerebral infarction affecting right dominant side; J45.20 Mild intermittent asthma, uncomplicated; K64.9 Unspecified hemorrhoids; N92.0 Excessive and frequent menstruation with regular cycle; Z87.820 Personal history of traumatic brain injury; Z79.899 Other long term (current) drug therapy
CPT/HCPCS: 36415; 80053; 82728; 83540; 84702; 85025; 85027; 85610; 85730; 86850; 86900; 86901; 86923; 99285; J0613; J2916; P9016

== ENCOUNTER → 2024-07-13 18:01 | Outpatient (BNV) | payer MEDICAID, SELFPAY | PROVIDERS: Admitting Provider Hospitalist; Emergency Provider Emergency Medicine; PCP Registered Nurse; Visit Provider Hospitalist | DX: D64.9 Anemia, unspecified (principal) | CPT/HCPCS: 99223; 99232; 99239 ==

== ENCOUNTER 2024-08-09 11:07 | Outpatient (REF) | payer MEDICAID, SELFPAY ==
[2024-08-09 11:35] LABS: Hematocrit 31.8 % (37.0-47.0); Hemoglobin 9.5 g/dl (12.0-16.0); Mean Corpuscular HGB Conc 29.9 g/dl (31.0-35.0); Mean Corpuscular Hemoglobin 22.3 pg (27.0-33.0); Mean Corpuscular Volume 74.6 fL (80.0-98.0); Mean Platelet Volume 9.9 fL (9.4-12.3); Platelet Count 346 X10*3/uL (160-400); Red Blood Count 4.26 X10*6/uL (4.20-5.50); White Blood Count 7.2 X10*3/uL (4.8-10.8)
== END 2024-08-09 11:08 | disposition home or self-care (01) ==
LOC: HO.HHCL 11:07
PROVIDERS: Visit Provider Internal Medicine
DX: D50.0 Iron deficiency anemia secondary to blood loss (chronic) (principal)
CPT/HCPCS: 36415; 85027

== ENCOUNTER 2025-06-03 15:00 | Inpatient (IN) | payer MEDICAID, SELFPAY ==
--- NOTE | ~2025-06-03 | XR_ITS ---
CLINICAL HISTORY: pain, swelling Radiographs of the right hand, 3 views, 4 images Comparison: None available Findings: No fracture or dislocation. No cortical destruction or periostitis to indicate osteomyelitis. No degenerative change. Soft tissue swelling. Impression: No acute osseous abnormality. Follow up if symptoms persist or worsen. This document has been electronically signed by: Carine Zuniga MD on 06/03/2025 17:15:06
--- NOTE | ~2025-06-03 | XR_ITS ---
CLINICAL HISTORY: chest pain Chest X-ray, 1 View COMPARISON: None provided FINDINGS: No consolidation. No pleural effusion. No pneumothorax. No cardiomegaly. No acute fracture. Elevation of the right hemidiaphragm. IMPRESSION: No acute findings. This document has been electronically signed by: Gurpreet Pfeiffer MD on 06/05/2025 03:17:43
--- NOTE | ~2025-06-03 | CT_ITS ---
CLINICAL HISTORY: abscess infection to right thumb palm THREE SCANS DONE, PT WOULD NOT HOLD STILL FOR SCAN CT right hand with contrast Comparison: CR - XR HAND RT MIN 3V - 06/03/25 15:32 EDT Findings: No fracture or dislocation. No cortical destruction or periostitis to indicate osteomyelitis. No osseous lesion. The joint spaces are preserved without osteophytosis. There is no joint effusion. There is a rim-enhancing fluid collection in the soft tissues between the 1st and 2nd digits of the level distal metacarpals which extends along the palmar aspect of the 1st digit measuring 3.1 x 3.5 x 2.5 cm. No soft tissue gas. The muscles are normal in attenuation and bulk. Unremarkable vasculature. There is skin thickening and infiltration of the subcutaneous fat. Impression: Abscess measuring 3.5 cm of the 1st digit and between the 1st and 2nd digits at the palmar aspect. No CT evidence of osteomyelitis. This document has been electronically signed by: Carine Zuniga MD on 06/03/2025 18:49:12
--- NOTE | 2025-06-03 15:17 | ED_ITS ---
HPI - General Adult General Chief complaint: Wound/Laceration Stated complaint: rt hand bite? Time Seen by Provider: 06/03/25 16:09 Source: patient Mode of arrival: ambulatory Limitations: no limitations History of Present Illness ED Provider: RADHA COLEBRT PA-C HPI narrative: 44 year old left hand dominant female with pmhx significant for anemia, seizure disorder, CVA with residual right sided deficits, and TBI presents to the ED today for evaluation of right hand pain/swelling x3 days. Reports waking up three day ago with swelling around her right thumb. Reports this began as a spider bite to her thumb 3 days ago. Over the past 3 days, the pain and swelling have worsened. Reports waking up in a pool of pus this morning. Admits to hx prior CVA/ TBI at 8 years old. Has had difficulty moving the right upper extremity since however typically able to move all digits on right hand. Now having difficulty moving all 5 digits d/t pain and swelling. Denies fever, chills. Denies injury/trauma. Denies hx DM. Denies hx IVDU. No prior surgeries to the hand. Not on anticoagulation. Related Data Home Medications ?Medication ?Instructions ?Recorded ?Confirmed albuterol sulfate 90 mcg/actuation 2 puff inhalation Q 4-6H PRN 06/23/22 07/13/24 aerosol inhaler (Proventil HFA) Wheezing amitriptyline 25 mg tablet 25 mg PO BEDTIME 08/06/23 1 09/12/23 ferrous sulfate 325 mg (65 mg 650 mg PO DAILY 08/06/23 07/13/24 iron) tablet (FeroSul) hydroxyzine HCl 25 mg tablet 25 mg PO DAILY PRN Anxiet y 08/06/23 07/13/24 acetaminophen 500 mg tablet 1,000 mg PO Q6H PRN pain 1 09/12/23 07/13/24 (Tylenol Extra Strength) cetirizine 10 mg tablet 10 mg PO DAILY 07/13/2407/01 chlorthalidone 25 mg tablet 12.5 mg PO DAILY 07/13/24 07/13/24 lidocaine 5 % topical patch 1 patch topical Q12H PRN P ain 07/13/24 07/13/24 naproxen 500 mg tablet 1,000 mg PO DAILY 07/13/24 1 09/12/23 Allergies Allergy/AdvReac Type Severity Reaction Status Date / Time No Known Allergies (No Known Allergy Verified 06/03/25 15:21 Allergies*) Review of Systems 2 Review of Systems: Yes all other systems are reviewed and are negative [facility] Past Medical History Attestation statement: The following information was validated with the patient. 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) Patient Tobacco Use Status: Never used Tobacco Cigarettes Per Day: 1 Years Smoked: 28 Smoked in Last 30 Days: No e-Cigarette/Vaping Use: Never Used Second Hand Smoke Exposure: No Use of substances other than those prescribed or required for medical reasons: No Advance Directives: No Advance Directives Information Provided: No Do you have a plan to hurt others: No Plan service: No Current occupational status: employed Physical Exam ED Vital Signs: Vital Signs - 24 hr 06/03/25 15:18 06/03/25 17:28 Temperature 96.7 F L Pulse Rate 67 82 Respiratory Rate 20 18 Blood Pressure 186/79 H 204/91 H Pulse Oximetry 98 97 Oxygen Delivery Method Room Air Room Air BMI result Body Mass Index 35.5 hypertensive, vitals are otherwise wnl General: Well appearing, in no acute distress. Skin: Warm, dry, intact. No rashes or lesions. Head: Normocephalic, atraumatic. EENT: Hearing is intact b/l. Conjunctiva clear. PERRLA. EOM intact. Moist mucous membranes.? Neck: Supple without LAD Cardiac: Chest wall symmetric. RRR Lungs: Normal respiratory effort without accessory muscle use. CTA bilaterally. Ext: + please refer to images of right hand below. noted swelling and erythema to right thenar eminence with decreased ROM of right 1st MC although able to flex/extend somewhat. crusted bite wound noted to palmar aspect of base of 1st mcp. no erythema noted along tendon sheaths. no streaking up RUE. no active drainage. no palpable fluctuance or crepitus. warm, ttp. Limited ROM to all other digits d/t pain and swelling. radial pulse intact. sensation intact. cap refill <2 seconds. Neuro: AOx3. Ambulating with steady gait Course Course Course Narrative: Medical screening exam performed. Please refer to detailed history, exam, evaluation, and management by primary provider. Three day history of right hand swelling with purulent discharge. Reports suspected insect bite. No history of diabetes. Left-hand dominant. Red, swollen right hand at the thenar eminence and base of the thumb. Pulse and sensation intact. Capillary refill less than 2 seconds. Labs and imaging. JS Reevaluation(s) Reevaluation #1: 5013 -- patient does not meet sepsis criteria at this time. CBC without leukocytosis. Microcytic anemia, H&H stable when compared to priors. Chemistry without acute electrolyte abnormality requiring intervention. No RESHMA. Lactic WNL. Blood culture sent. Urine without infection. X-ray right hand without evidence of osteo. CT right hand showing abscess measuring 3.5 centimeters in the soft tissues between the 1st and 2nd digits extending along the palmar aspect of the 1st digit. No soft tissue gas to suggest necrotizing fasciitis. > vanco and Zosyn ordered for broad-spectrum coverage. Morphine, IV Tylenol for pain control. > I was called to patient's bedside by RN as the abscess spontaneously opened. Drained approximately 30-40 cc of purulent/bloody discharge. Nonadherent and gauze applied as area is continuing to drain. > I spoke with Fareed from ortho. Recommending admission to medicine for IV antibiotics. Hand surgery will consult. > I spoke with hospitalist zeenat - patient to be admitted to medicine Medications Administered Discontinued Medications Generic Name Dose Route Start Last Admin Trade Name Freq PRN Reason Stop Dose Admin Vancomycin HCl 2,000 mg in 500 mls @ 250 mls/hr 06/03/25 16:41 06/03/25 17:34 Vancomycin/Ns IV 06/03/25 18:40 250 mls/hr ONCE ONE Administration Piperacillin Sod/Tazobactam 50 mls @ 100 mls/hr 06/03/25 16:41 06/03/25 17:54 Sod 3.375 gm/ Sodium Chloride IV 06/03/25 17:10 Infused ONCE ONE Infusion Sodium Chloride 1,000 mls @ 999 mls/hr 06/03/25 17:30 06/03/25 18:24 Ns IV 06/03/25 18:30 Infused .Q1H1M CHARIS Infusion Acetaminophen 1,000 mg in 100 mls @ 400 mls/hr 06/03/25 18:15 06/03/25 18:36 Ofirmev IV 06/03/25 18:29 Infused ONCE ONE Infusion Iohexol 100 ml 06/03/25 17:09 06/03/25 17:14 Iohexol 350 Mg/Ml 100 Ml Infus..Btl IV 06/03/25 17:10 85 ml ONCE ONE Administration Morphine Sulfate 4 mg 06/03/25 16:45 06/03/25 17:26 Morphine Sulfate 4 Mg/Ml Cartridge IVPUSH 06/03/25 16:46 4 mg ONCE ONE Administration Protocol Medical Decision Making Medical Decision Making [facility] Narrative: 44 year old left hand dominant female with pmhx significant for anemia, seizure disorder, CVA with residual right sided deficits, and TBI presents to the ED today for evaluation of right hand pain/swelling x3 days. patient is hypertensive, vitals are otherwise wnl. she is afebrile, overall well appearing. please refer to images of right hand above. noted swelling and erythema to right thenar eminence with decreased ROM of right 1st MCP. crusted open puncture wound noted to palmar aspect of base of 1st mcp. no erythema noted along tendon sheaths. no streaking up RUE. no active drainage. no palpable fluctuance or crepitus. warm, ttp. Limited ROM to all other digits d/t pain and swelling. radial pulse intact. sensation intact. cap refill <2 seconds. Differential diagnosis includes cellulitis, abscess, tenosynovitis, necrotizing fasciitis Plan for labs, lactic/blood cultures, imaging, pain control, re-eval. Differential Diagnosis Differential Diagnoses: The differential diagnosis associated with the presentation includes As above Admission/Observation Consideration of admission/observation: Escalation of care including admission/observation considered Patient admitted to medicine for IV antibiotics Consult Healthcare Provider Management of the patient was discussed with: Hospitalist and Chinchilla Machine Operator Hospitalist- zeenat lama Lab Data [facility] Lab Attestation statement: I reviewed the patient's lab results. as above. 06/03/25 15:51 06/03/25 15:51 Labs: Lab Results 06/03/25 06/03/25 Range/Units 15:51 17:36 WBC 10.6 (4.8-10.8) X10*3/uL RBC 4.11 L (4.20-5.50) X10*6/uL Hgb 9.1 L (12.0-16.0) g/dl Hct 29.8 L (37.0-47.0) % MCV 72.5 L (80.0-98.0) fL MCH 22.1 L (27.0-33.0) pg MCHC 30.5 L (31.0-35.0) g/dl RDW 20.1 H (11.0-16.0) % Plt Count 367 (160-400) X10*3/uL MPV 9.8 (9.4-12.3) fL Immature Gran % (Auto) 0.7 H (0.0-0.4) % Neut % (Auto) 74.6 H (45-73) % Lymph % (Auto) 17.5 L (20-40) % [place] % (Auto) 4.6 (2-11) % Eos % (Auto) 2.3 (0-4) % Baso % (Auto) 0.3 (0-2) % Lymph # (Auto) 1.9 (1.2-4.9) X10*3/uL [place] # (Auto) 0.5 (0.1-1.2) X10*3/uL Eos # (Auto) 0.2 (0.0-0.4) X10*3/uL Baso # (Auto) 0.0 (0.0-0.2) X10*3/uL Abs Immat Gran (auto) 0.07 H (0.00-0.03) X10*3/uL Absolute Neuts (auto) 7.9 (2.0-8.3) x10*3/uL Absolute Nucleated RBC 0.000 (0.0-0.012) X10*3/uL Nucleated RBC % (auto) 0.0 (0.0-0.2) /100WBC Sodium 142 (135-145) mmol/L Potassium 3.9 (3.3-5.1) mmol/L Chloride 109 H (96-108) mmol/L Carbon Dioxide 26 (22-29) mmol/L Anion Gap 11 L (12-20) BUN 12 (9-16) mg/dL Creatinine 0.60 (0.5-1.4) mg/dL Estim Creat Clear Calc 122.0 Estimated GFR > 60 Random Glucose 94 (60-115) mg/dL Lactic Acid 1.6 (0.5-2.0) mmol/L Calcium 8.8 (8.4-10.2) mg/dL Urine Color Yellow Urine Appearance Clear Urine pH 7.0 (5.0-9.0) Ur Specific [place] >= 1.030 H (1.005-1.025) Urine Protein Negative (Neg-Trace) mg/dL Urine Glucose (UA) Negative (Negative) mg/dL Urine Ketones Negative (Negative) mg/dL Urine Blood Negative (Negative) Urine Nitrite Negative (Negative) Ur Leukocyte Esterase Negative (Negative) Independent Interpretation I performed an independent interpretation of an: Plain X-Ray and CT Scan Interpretation: xr right hand without osseous abnormality ct right hand showing fluid collection w/in soft tissues Radiology Impression Discussion of test interpretation with radiology: I have reviewed the radiologist's reading. Radiologist Impression: Ordering Physician: Conrado Freeman Date of Service: 06/03/25 Procedure(s): XR hand RT min 3V Accession Number(s): [id number] cc: Conrado Freeman; [facility]~ Reason for Exam: pain, swelling CLINICAL HISTORY: pain, swelling Radiographs of the right hand, 3 views, 4 images Comparison: None available Findings: No fracture or dislocation. No cortical destruction or periostitis to indicate osteomyelitis. No degenerative change. Soft tissue swelling. Impression: No acute osseous abnormality. Follow up if symptoms persist or worsen. This document has been electronically signed by: Carine Zuniga MD on 06/03/2025 17:15:06 Ordering Physician: Radha Colbert Date of Service: 06/03/25 Procedure(s): CT hand RT w IV con Accession Number(s): [id number] cc: Radha Colbert; [facility]~ Report Number: [id number]: Total DLP = 289.00 mGy-cm Reason for Exam: abscess/infection to right thumb/palm CLINICAL HISTORY: abscess infection to right thumb palm THREE SCANS DONE, PT WOULD NOT HOLD STILL FOR SCAN CT right hand with contrast Comparison: CR - XR HAND RT MIN 3V - 06/03/25 15:32 EDT Findings: No fracture or dislocation. No cortical destruction or periostitis to indicate osteomyelitis. No osseous lesion. The joint spaces are preserved without osteophytosis. There is no joint effusion. There is a rim-enhancing fluid collection in the soft tissues between the 1st and 2nd digits of the level distal metacarpals which extends along the palmar aspect of the 1st digit measuring 3.1 x 3.5 x 2.5 cm. No soft tissue gas. The muscles are normal in attenuation and bulk. Unremarkable vasculature. There is skin thickening and infiltration of the subcutaneous fat. Impression: Abscess measuring 3.5 cm of the 1st digit and between the 1st and 2nd digits at the palmar aspect. No CT evidence of osteomyelitis. This document has been electronically signed by: Carine Zuniga MD on 06/03/2025 18:49:12 External Record Review External record reviewed: Inpatient record Prescription Management I considered prescription management with: Pain Medication and Antibiotic Social Determinants Patient?s care significantly limited by Social Determinants of Health including: Other Social Determinant of Health Critical Care Time Critical Care Time Critical Care Time: Yes Total Critical Care Time: 41 Attestation: Critical care time in the amount of 41 minutes has been provided to the patient in terms of direct patient care, frequent reevaluation, consultation with ortho and hospitalist, review and interpretation of medical data and results, and management of potentially life-threatening conditions. This is all outside of any medical procedures. Discharge Plan Discharge Clinical Impression: Abscess of right hand Patient Disposition: Admitted As Inpatient Print Language: Cambodian
[2025-06-03 15:18] VITALS: BP 186/79; PULSE 67; RESP 20; TEMP 35.9; O2SAT 98; BMI 35.5
[2025-06-03 15:58] LABS: MANUAL DIFF FLAG NO
[2025-06-03 16:00] LABS: Hematocrit 29.8 % (37.0-47.0); Hemoglobin 9.1 g/dl (12.0-16.0); Imm Gran Abs Auto 0.07 X10*3/uL (0.00-0.03); Imm Gran Pct Auto 0.7 % (0.0-0.4); Lymphocytes Absolute Auto 1.9 X10*3/uL (1.2-4.9); Mean Corpuscular HGB Conc 30.5 g/dl (31.0-35.0); Mean Corpuscular Hemoglobin 22.1 pg (27.0-33.0); Mean Corpuscular Volume 72.5 fL (80.0-98.0); NRBC Abs Auto 0.000 X10*3/uL (0.0-0.012); NRBC Pct Auto 0.0 /100WBC (0.0-0.2); Platelet Count 367 X10*3/uL (160-400); Red Blood Count 4.11 X10*6/uL (4.20-5.50); White Blood Count 10.6 X10*3/uL (4.8-10.8)
--- OUTSIDE RECORDS SUMMARY | 2025-06-03 16:03 | XMS_ITS | Encounter Summary ---
Author Organization [employer] Address [address] [facility] [address] [place] [address] Care Team Providers Care Erp Technical Lead Name Role Phone [facility] Primary Care Provider [phone] Reason for Visit * Reason Comments Med Refill Encounter Details Date Type Department Care Team ([facility] st Contact Info) Description 04/07/2025 Refill [facility] MEDICINE [address] [place] [address] [facility] [address] [place] [address] Mood disorder (CMS/HCC) Social History Tobacco Use Types Packs/Day Years Used Date Smoking Tobacco: Former Cigarettes Smokeless Tobacco: Former Alcohol Use Standard Drinks/Week Comments Never 0 (1 standard drink = 0.6 oz pur e alcohol) Depression Answer Date Recorded Patient Health Questionnaire-9 Score 8 07/13/2024 Patient Health Questionnaire-9 Score 8 07/13/2024 Last PHQ-9: Questionnaire Data Not on file 1 09/12/2023 Housing Stability Answer Date Recorded What is your housing situation today? I have marlon clarke 10/07/[address] you li ve. Do you have problems with any of the following? Mold;Pests such as bugs, ants, or mice 10/07/2023 Food Insecurity Answer Date Recorded Within the past 12 months, y ou worried that your food would run out before you got money to buy more: Sometimes True 2023 Within the past 12 months,th e food you bought just didn't last and you didn't have enough money to get more: Sometimes True 10/07/2023 Transportation Answer Date Recorded In the past 12 months, has l ack of transportation kept you from medical appts, meetings, work or from getting things needed for daily living? No 10/07/2023 Utilities Answer Date Recorded In the past 12 months, has t he electric, gas, oil or water company threatened to shut off services in your home? No 06/15/2023 Depression Answer Date Recorded Patient Health Questionnaire-2 Score 2 07/13/2024 Comments Unknown Sex and Gender Information Value Date Recorded Sex Assigned at Female 06/30/2022 10:36 AM EDT Legal Sex Female 10:36 AM EDT Gender Identity Female 06/30/2022 10:36 AM EDT Sexual Orientation Straight 06/30/2022 10 :36 AM EDT documented as of this encounter Plan of Treatment Not on file documented as of this encounter Visit Diagnoses Diagnosis Mood disorder (CMS/HCC) Unspecified episodic mood disorder documented in this encounter Additional Health Concerns Assessment Noted Time PHQ-9 Depression Total Score: 8 07/13/20 24 10:08 AM EST documented as of this encounter Care Teams Erp Technical Lead Relationship Specialty Start Date End Date Salima Mccann FNP [address] [place] [id number] PCP - General Family Medicine 04/23/22 documented as of this encounter
--- OUTSIDE RECORDS SUMMARY | 2025-06-03 16:03 | XMS_ITS | Encounter Summary ---
Author Organization [employer] Address [address] [facility] [address] [place] [address] Care Team Providers Care Payroll Associate Name Role Phone Salima Mccann [facility] Primary Care Provider [phone] Reason for Visit * Reason Comments Med Refill Encounter Details Date Type Department Care Team (Late st Contact Info) Description 03/02/2025 Refill [facility] ADULT DENTAL [address] [place] [address] Nael Pitts DDS [address] [place] [address] Social History Tobacco Use Types Packs/Day Years [...] AM EDT documented as of this encounter Miscellaneous Notes * Telephone Encounter - Nael Pitts DDS - 03/06/2025 8:57 AM EDT Approving, but needs appt for additional refills. documented in this encounter Plan of Treatment Not on file documented as of this encounter Visit Diagnoses Not on filedocumented in this encounter Additional Health Concerns Assessment Noted Time PHQ-9 Depression Total Score: 8 07/13/20 24 10:08 AM EST documented as of this encounter Care Teams Payroll Associate Relationship Specialty Start Date End Date Salima Mccann FNP [address] [place] [id number] PCP - General Family Medicine 04/23/22 documented as of this encounter
--- OUTSIDE RECORDS SUMMARY | 2025-06-03 16:03 | XMS_ITS | Clinical Summary ---
Author Organization [employer] Address [address] [facility] [address] [place] [address] Care Team Providers Care Wellness Rn Name Role Phone Salima Mccann JUNIOR BRAND MANAGER Primary Care Provider [phone] Allergies No known active allergies Medications * This document contains information received from the source organization and may not represent a complete record from that organization. ARIPiprazole (Abilify) 10 MG tablet Take 1 tablet by mouth at bed time. 2 Active levETIRAcetam (Keppra) 250 MG tablet Take 1 tablet by mouth every 12 (twelve) hours. 2 Active SUMAtriptan (Imitrex) 25 MG tablet Take 1 tablet by mouth. 2 Active chlorthalidone (Hygroton) 25 MG tabletIndication s:Primary hypertension Take 0.5 tablets (12.5 mg) by mouth in the morning. 15 tablet 11 3 Active Additional Information Patient not taking.Reported on 01/24/2025 Flovent Diskus 100 MCG/ACT aerosol powderIndication s:Moderate persistent asthma without complication INHALE 1 PUFF BY MOUTH TWICE DAILY (for asthma) RINSE MOUTH AFTER USING. 60 each 3 3 Active triamcinolone (Kenalog) 0.1 % ointmentIndicati ons:Rash and nonspecific skin eruption Apply topically 2 times daily. 15 g 4 Active enalapril (Vasotec) 10 MG tablet Take 1 tablet by mouth at bed time. 2 Active Ventolin HFA 108 (90 Base) MCG/ACT inhalerIndicatio ns:Moderate persistent asthma, unspecified whether complicated INHALE 2 PUFFS BY MOUTH EVERY 4 TO 6 HOURS NEEDED FOR COUGH, WHEEZING, OR SHORTNESS OF BREATH 18 g 4 Active fluticasone (Flonase) 50 MCG/ACT nasal sprayIndications :Seasonal allergies Administer 1-2 sprays into each nostril Once per day. Shake gently. Before first use, prime pump. After use, clean tip and replace cap. 16 g 2 4 Active albuterol 108 (90 Base) MCG/ACT inhalerIndicatio ns:Seasonal allergies Inhale 2 puffs every 6 (six) hours if needed for wheezing. 18 g 11 4 Active budesonide-formo terol (Symbicort) 80-4.5 MCG/ACT inhalerIndicatio ns:Moderate persistent asthma without complication Inhale 2 puffs twie daily. Rinse mouth with water after use to reduce aftertaste and incidence of candidiasis. Do not swallow. 1 each 4 Active amitriptyline (Elavil) 25 MG tablet TAKE 1 TABLET BY MOUTH AT BEDTIME 90 tablet 1 4 Active fexofenadine (Zahira) 180 MG tabletIndication s:Moderate persistent asthma without complication Take 1 tablet (180 mg) by mouth Once per day. 30 tablet 11 4 07/13/20 25 Active Spacer/Aero-Hold Chamber Mask miscIndications: Moderate persistent asthma without complication Use as directed with inhaler 1 each 4 Active Spacer/Aero-Hold ing Chambers (OptiChamber Shanta-Lg Mask) device 1 each. Use with inhaler as directed 4 Active naproxen (Naprosyn) 500 MG tabletIndication s:Moderate persistent asthma without complication,Nec k muscle spasm TAKE 1 TABLET BY MOUTH TWICE DAILY 60 tablet 1 5 Active ibuprofen 600 MG tabletIndication s:Closed fracture of tooth, initial encounter,Severe dental caries,Non-madelin rable tooth Take 1 tablet (600 mg) by mouth 3 times daily. 30 tablet 5 Active Additional Information Patient not taking.Reported on 01/24/2025 Ketotifen Fumarate 0.035 % solution Administer 1 drop into affected eye(s) 2 times daily. 10 mL 2 5 Active acetaminophen (Tylenol 8 Hour) 650 MG ER tablet TAKE 1 TABLET BY MOUTH EVERY 8 HOURS NEEDED FOR MILD PAIN DO NOT BREAK, CRUSH, DISSOLVE OR CHEW 30 tablet 5 Active lidocaine (Lidoderm) 5 % patch APPLY 1 PATCH TOPICALLY TO SKIN, LEAVE ON FOR 12 HOURS AND OFF FOR 12 HOURS DIRECTED, MAY USE 2 PATCHES 60 patch 2 5 Active Ferrous Sulfate (iron) 325 (65 Fe) MG tabletIndication s:Iron deficiency anemia due to chronic blood loss Take 1 tablet (325 mg) by mouth Once per day. 60 tablet 3 5 Active hydrOXYzine HCl (Atarax) 25 MG tabletIndication s:Mood disorder (CMS/HCC) TAKE 1 TABLET BY MOUTH UP TO THREE TIMES DAILY NEEDED 90 tablet 1 5 Active Active Problems Problem Noted Date Diagnosed Date Drug overdose 12/13/2024 Hemorrhoids 12/13/2024 History of 12/13/2024 Menometrorrhagia 12/13/2024 Rhabdomyolysis 12/13/2024 Non-restorable tooth 12/13/2024 TBI (traumatic brain injury) 12/13/2024 Acute on chronic anemia 12/13/2024 Acute on chronic blood loss anemia 12/13/2024 Iron deficiency anemia 12/13/2024 Syncope 12/13/2024 Closed fracture of tooth 12/13/2024 Severe dental caries 12/13/2024 Iron deficiency anemia due to chronic blood loss 08/09/2024 Assessment & Plan (08/09/2024 9:45 AM EST): Patient here for a HDF Known Hx of Anemia due to dysfunctional Uterine Bleeding, previously referred to [facility] She was admitted to Hospital from 07/13-07/15 2024 after she presented with weakness and fatigue. Found to have a Hgb level of 5.8 g/dL that was drawn at PCP's office. Their impression was that she had acute on chronic blood loss likely due to menorrhagia and hemorrhoids. Patient received 2 units of pRBCs and 2 doses of IV iron with improvement of symptoms and Hgb to 8.6 g/dL. Patient was instructed to minimize use of NSAIDs. Patient discharged to home to continue on iron supplements and to follow up with OBGYN. Here today, vital signs are stable. Plan: Repeat CBC, reiterated the need to be compliant with her Iron supplementation and to keep her appointment with [facility]. Pt tells me she had to postpone her appointment at [facility] due to the fact that she had her period. She has been in communication with the [facility] to coordinate a future appointment Hospital discharge follow-up 08/09/2024 Assessment & Plan (08/09/2024 9:46 AM EST): Patient here for a HDF Known Hx of Anemia due to dysfunctional Uterine Bleeding, previously referred to [facility] She was admitted to Hospital from 07/13-07/15 2024 after she presented with weakness and fatigue. Found to have a Hgb level of 5.8 g/dL that was drawn at PCP's office. Their impression was that she had acute on chronic blood loss likely due to menorrhagia and hemorrhoids. Patient received 2 units of pRBCs and 2 doses of IV iron with improvement of symptoms and Hgb to 8.6 g/dL. Patient was instructed to minimize use of NSAIDs. Patient discharged to home to continue on iron supplements and to follow up with OBGYN. Here today, vital signs are stable. Plan: Repeat CBC, reiterated the need to be compliant with her Iron supplementation and to keep her appointment with [facility] Pt tells me she had to postpone her appointment at [facility] due to the fact that she had her period. She has been in communication with the [facility] to coordinate a future appointment Heart murmur 08/09/2024 CVA (cerebral vascular accident) (CMS/HCC) 11/25 Abnormal uterine bleeding (AUB) 11/26/2023 Overview (02/28/2024): H H= 10.4/34.3 TSH, prolactin, hCG, GC and chlamydia were negative. Co testing was done was negative. EM on ultrasound 0.6cm otherwise unremarkable Assessment & Plan (08/09/2024 9:36 AM EST): Referred to [facility] Migraine 11/26/2023 Primary hypertension 05/22/2021 Overview (11/26/2023): Enalapril 10mg Chlorthalidone 25mg Maintenance: BMP: 05/2023 Lipid Panel: 05/2023 ASCVD Risk: Calculate pending updated labs EKG: Obtain baseline at f/u - Aerobic exercise to reduce BP. Initial goal of 30 min walk 3-5x/week. Increase as tolerated. - low-sodium diet (goal: <2g/day) and heart healthy diet such as DASH to reduce BP and prevent ASCVD. - Home BP monitoring 1-2 x day with goal of <140/90. - Seek immediate medical attention for chest pain, palpitations, SOB, syncope, or sudden changes in mental status. - Do not change or discontinue current prescriptions without first consulting health care provider Assessment & Plan (07/18/2023 10:05 AM EST): BP elevated in office, consistent with home readings START chlorthalidone 25mg (1/2) daily. Reviewed administration, risks, side effects RN BP check 2 weeks Assessment & Plan (07/01/2023 9:25 PM EDT): Continue current regimen Update labs Moderate persistent asthma 05/22/2021 Overview (02/28/2024): Symbicort b.I.d Albuterol PRN Mood disorder 05/22/2021 Overview (02/28/2024): - Hx of auditory/visual hallucinations - Established with psychiatry - Abilify 10mg - Amitriptyline 10mg at night Assessment & Plan (07/18/2023 10:08 AM EST): Hydroxyzine refilled Referred to 07/01/2023 to establish with new psychiatrist Will bridge psych meds until established with new provider Contact HC if sx worsen or experiencing thoughts of SI or self harm. Pt has N crisis contact information Assessment & Plan (07/01/2023 9:27 PM EDT): Pt declines in office BE Referral placed for BE via telehealth Will bridge medications until established with new psychiatrist Contact HC if sx worsen or experiencing thoughts of SI or self harm. 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 Assessment & Plan (07/01/2023 9:43 PM EDT): Well controlled Follow up as scheduled with neurology Encounters Date Type Department Care Team Description 04/07/2025 Refill [facility] [address] [place] [address] Salima Mccann FNP Mood disorder ([facility]) 04/07/2025 Refill [facility] [address] [place] [address] Salima Mccann FNP Mood disorder ([facility]) 04/03/2025 Refill [facility] [address] [place] [address] Tuan Qureshi MD Iron deficiency anemia due to chronic blood loss 03/31/2025 Telephone [facility] [address] [place] [address] Salima Mccann FNP Telephone Call 03/30/2025 Telephone [facility] [address] [place] [address] Salima Mccann FNP chart prep 03/24/2025 Patient Outreach [facility] [address] [place] [address] Salima Mccann FNP Pre-visit Planning (LVM ) 03/18/2025 Refill [facility] [address] [place] [address] Salima Mccann FNP from Last 3 Months Immunizations Immunization Administration Dates Next Due Hep B, adult 08/09/2024 Influenza injectable quadriv alent preservative free 06/15/2023,05/21/2021,06/28/2020 Influenza, injectable, quadr ivalent, preservative free, pediatric 09/12/2015 Influenza, seasonal, injecta ble, preservative free 07/13/2024,09/12/2015 Ry SARS-CoV-2 Vaccination 12/31/2020 Pfizer Covid-19 Vaccine 12+ 07/13/2024, Pneumococcal Conjugate PCV 20 02/22/2024 Tdap 11/20/2021 Family History Medical History Relation Name Comments Colon cancer Maternal Grandmother Colon cancer Mother cva Mother's Sister Relation Name Status Comments Maternal Grandmother Mother Mother's Sister Social History Tobacco Use Types Packs/Day Years Used Date Smoking Tobacco: Former Cigarettes Smokeless Tobacco: Former Tobacco Cessation:Counseling Given: Not Answered Alcohol Use Standard Drinks/Week Comments Never 0 [...] Orientation Straight 06/30/2022 10 :36 AM EDT Last Filed Vital Signs Vital Sign Reading Time Taken Comments Blood Pressure 136/74 02/23/2025 9:42 AM EDT Pulse 63 02/23/2025 9:42 AM EDT Temperature 36.9 C (98.4 F) 02/23/2025 9:42 AM EDT Respiratory Rate 17 02/23/2025 9:42 AM EDT Oxygen Saturation 99% 02/23/2025 9:42 AM EDT Inhaled Oxygen Concentration - - Weight 89.5 kg (197 lb 6.4 oz) 02/23/2025 9:42 A M EDT Height 157.5 cm (5' 2 ) 08/09/2024 9:27 AM EST Body Mass Index 36.1 08/09/2024 9:27 AM EST Plan of Treatment Health Maintenance Due Date Last Done Comments CT Colonography 1980 Colonoscopy 1979 Colorectal Cancer Screening 1980 Dental Prophylaxis 1979 FIT DNA/Cologuard 1979 FIT 1979 FOBT 1980 Sigmoidoscopy 1980 Disability Screening 1979 Family Planning (PISQ) 1994 HPV Vaccines (1 - 3-dose series) 1994 Dental Oral Exam 10/26/2022 04/24/2022 Hepatitis B Vaccines (2 of 3 - 19+ 3-dose series) 09/06/2024 08/09/2024 SDOH Screening 10/07/2024 10/07/2023 Influenza Vaccine (#1) 2025 , 06/15/2023, 05/21/2021, Additional history exists Depression Screening 07/13/2025 07/13/2024, 07/13/20 Alcohol/Substance Use Screening 08/09/2025 08/09/2024 Dental X-Ray: Bitewings 08/10/2025 08/09/2024, 04/24 Mammogram 10/06/2025 10/06/2023 Tobacco Screening 01/24/2026 01/24/2025 Dental X-Ray: Full Mouth 12/15/2027 12/13/2024, 04/01 Cervical Cancer Screening 08/06/2028 HPV/Cotest 08/06/2028 Pap Smear 08/06/2028 08/06/2023 Zoster Vaccines (1 of 2) 2029 Lipid Panel 07/13/2029 07/13/2024, 05/31, 02/19/2022, Additional history exists DTaP/Tdap/Td Vaccines (2 - Td or Tdap) 11/21/2031 11/20/2021 RSV Patients and Patients Aged 60 years or older (1 - 1-dose 75+ series) 2054 HIV Screening Completed 02/19/2022 Hepatitis C Screening Completed 02/19/2022 Pneumococcal Vaccine: Pediatrics (0 to 5 Years) and At-Risk Patients (6 to 49) Years Completed 02/22/2024 COVID-19 Vaccine Completed 07/13/2024, , 12/31/2020 HIB Vaccines Aged Out No longer eligi ble based on patient's age to complete this topic Hepatitis A Vaccines Aged Out No long er eligible based on patient's age to complete this topic IPV Vaccines Aged Out No longer eligi ble based on patient's age to complete this topic Meningococcal B Vaccine Aged Out No l onger eligible based on patient's age to complete this topic Meningococcal Vaccine Aged Out No daniel abby eligible based on patient's age to complete this topic RSV under 20 months Aged Out No longe r eligible based on patient's age to complete this topic Rotavirus Vaccines Aged Out No longer eligible based on patient's age to complete this topic Procedures Procedure Name Priority Date/Time Associated Diagnosis Comments Full PANORAMIC RADIOGRAPHIC IMAGE Routine 12/13/2024 11:30 AM EDT BITEWING - SINGLE RADIOGRAPHIC IMAGE Routine 08/09/2024 11:30 AM EST LIPID PANEL, STANDARD Routine 07/13/2024 10:54 AM EST Moderate persistent asthma without complication BI MAMMOGRAM SCREENING TOMOSYNTHESIS BILATERAL Routine 10/06/2023 2:55 PM EST PAP SMEAR Routine 08/06/2023 3:37 PM EST COMPREHENSIVE ORAL EVALUATION - NEW OR ESTABLISHED PATIENT Routine 04/24/2022 12:00 AM EDT ZHORTENSIA HISTORICAL HEPATITIS C AB W/REFL TO HCV RNA, QN, PCR Routine 02/19/2022 4:16 PM EDT HIV 1/2 ANTIGEN/ANTIBODY, FOURTH GENERATION W/RFL Routine 02/19/2022 4:16 PM EDT from Last 3 Months or Most Recently Relevant to Health Maintenance Results * Lipid Panel, Standard (07/13/2024 10:54 AM EST) Triglycerides 101 <150 mg/dL [facility] Comment:Desirable Triglyceri de: less than 150 mg/dLBorderline High Triglyceride 150-199 mg/dLHigh Triglyceride: 200-499 mg/dLVery High Triglyceride: greater than or equal to 5OO mg/dL Cholesterol 145 <200 mg/dL [facility] Comment:Desirable Cholestero l: less than 200 mg/dLBorderline High Cholesterol: 200-239 mg/dLHigh Cholesterol: greater than 239 mg/dL LDL Cholesterol Calculated 75 <100 mg/dL [facility] Comment:Desirable LDL: less than 100 mg/dLNear Optimal/Above Optimal LDL: 110- 129 mg/dLBorderline High LDL: 130-159 mg/dLHigh LDL: 160-189 mg/dLVery High LDL: greater than or equal to 190 mg/dL HDL Cholesterol 50 >40 mg/dL [facility] Comment:Desirable HDL: great er than 40 mg/dL Note: This HDL assay may give artificially low results in patients with liver disease. Blood Venous blood specimen / Unknown 07/13/2024 10:54 AM EST 07/13/2024 1:24 PM EST [facility] JUNIOR BRAND MANAGER LAB BLOOD ORDERABLES Final Re sult [facility] [address] [place] [phone] * BI Mammogram Screening Tomosynthesis Bilateral (10/06/2023 2:55 PM EST) Anatomical Region Laterality Modality Breast Bilateral Mammography 10/06/2023 2:55 PM EST Narrative 10/31/2023 7:57 PM EST [address] [place] [address] Mammography Report Signed Patient: Lynda Gillespie MR#: [id number] : 1980 Acct:[id number] Age/Sex: 43 / F ADM Date: 10/06/23 Loc: HO.MAMMO Attending Dr: Salima Mccann JUNIOR BRAND MANAGER Ordering Physician: Kong Mckinnon MD Results: 1Negativ e Date of Service: 10/06/23 Follow Up: 1 Year From Orig inal Mammogram Procedure(s): MM tomosynthesis screening BI Accession Number(s): [id number] cc: Salima Mccann; Kong Mckinnon MD EXAMINATION: MM SCREENING DIGITAL BREAST TOMOSYNTHESIS, BILATERAL CLINICAL INFORMATION: Screening. Asymptomatic. COMPARISON: Mammography: This is a baseline mammogram. TECHNIQUE: Digital breast tomosynthesis is performed in both the craniocaudal and mediolateral oblique views along with computer-aided detection (CAD). Synthesized 2D images are generated from the tomosynthesis. FINDINGS: There are scattered areas of fibroglandular density (ACR BI-RADS breast composition Category b). There are no significant masses, abnormal calcifications, or other abnormalities. MM/MM tomosynthesis screening BI IMPRESSION: No mammographic evidence of malignancy. ASSESSMENT: BI-RADS BI-RADS 1 - Negative RECOMMENDATION: Routine annual mammography screening. 1 year F/U This examination should not preclude the clinical evaluation of a suspicious palpable abnormality. This patient's information was entered into a reminder system with a target due date for their next mammogram. Dictated By: Myla Rya MD Signed By: <Electronically signed by Myla Ray MD in OV> 10/31/231952 DD/ 1455 TD/TT: Metal Room Dental Technician: Procedure Note Donotuseinterpreter, Image - 10/31/[address] [place] [address] Mammography Report Signed Patient: Donny GillespieR#: [id number] : 1980Acct:[id number] Age/Sex: 43 / FADM Date: 10/06/23 Loc: MAMMO Attending Dr: Salima HOLDEN Ordering Physician: Kong Mckinnon MDResults: 1Negativ e Date of Service: 10/06/23Follow Up: 1 Year From Orig inal Mammogram Procedure(s): MM tomosynthesis screening BI Accession Number(s): [id number] cc: Salima Mccann; Kong Mckinnon MD EXAMINATION: MM SCREENING DIGITAL BREAST TOMOSYNTHESIS, BILATERAL CLINICAL INFORMATION: Screening. Asymptomatic. COMPARISON: Mammography: This is a baseline mammogram. TECHNIQUE: Digital breast tomosynthesis is performed in both the craniocaudal and mediolateral oblique views along with computer-aided detection (CAD). Synthesized 2D images are generated from the tomosynthesis. FINDINGS: There are scattered areas of fibroglandular density (ACR BI-RADS breast composition Category b). There are no significant masses, abnormal calcifications, or other abnormalities. MM/MM tomosynthesis screening BI IMPRESSION: No mammographic evidence of malignancy. ASSESSMENT: BI-RADS BI-RADS 1 - Negative RECOMMENDATION: Routine annual mammography screening. 1 year F/U This examination should not preclude the clinical evaluation of a suspicious palpable abnormality. This patient's information was entered into a reminder system with a target due date for their next mammogram. Dictated By: Myla Ray MD Signed By: <Electronically signed by Myla Ray MD in OV> 10/31/231952 DD/ 54 TD/TT: Metal Room Dental Technician: [facility] External Provider IMG BI PROCEDURES Final Result * Pap Smear (08/06/2023 3:37 PM EST) 08/06/2023 3:3 7 PM EST 08/10/2023 8:50 AM EST [facility] - 08/14/2023 9:58 AM EST ----- ------- Name: Lynda Gillespie Age/Sex: 43/F : 1980 Unit#: [id number] Attend Dr: Kong Mckinnon MD Re08/06/23 Status: DEP REF Location: [facility] Disch: ----- ------- SPEC : [id number] RECD: 08/10/23 STATUS: MEENAKSHI SIMEON NUM: [id number] TWAN: 08/06/[address] [facility] [address]: Kong Mckinnon MD ENTERED: 08/10/23 SP TYPE: Pap Smr OTHR DR: [facility] ORDERED: Pap Smear Interpretation Satisfactory for evaluation. Negative for intraepithelial lesion or malignancy. HPV mRNA E6/E7: NOT DETECTED This assay detects E6/E7 viral messenger RNA (mRNA) from 14 high-risk HPV types (16, 18, 31, 33, 35, 39, 45, 51, 52, 56, 58, 59, 66, 68) HPV testing performed by [employer], [place], [place]. See reference laboratory portion of the EMR for entire report. Clinical Information LMP: 07/08/2023 Previous PAP test: Unknown date/findings Other history: Abnormal uterine and vaginal bleeding, unspecified Material Received ThinPrep-Cervical Copies To: [facility] [address] [place] [address] Kong Mckinnon MD [address] [place], [place] [address]M[place] [address] [address] ----- ------- Signed (signature on file) CESAR Purvis ([facility]) 08/14/23 0958 ----- ------- END OF REPORT Generic External Data Provider LAB CYTOLOGY ORDArlyn FIGUEROA Final Result Performing Organization Address [facility] Co de Phone Number [facility] [address] [place] [phone] * HEPATITIS C AB W/REFL TO HCV RNA, QN, PCR (02/19/2022 4:16 PM EDT) Pathologist [facility] HEPATITIS C ANTIBODY NON-REACT ZOILA NON-REACT ZOILA [facility] INDEX 0.07 <1.00 [facility] Comment: HCV antibody was non-reactive. There is no laboratory evidence of HCV infection. In most cases, no further action is required. However, if recent HCV exposure is suspected, a test for HCV RNA (test code 77637) is suggested. For additional information please refer to http://education.COTA.Client24/faq/ZAO00m0 (This link is being provided for informational/ educational purposes only.) 02/19/2022 4:16 PM EDT Aixa Ronquillo NP HISTORICAL/NON ORDERABLE LABS F inal Result Performing Organization Address [facility]/State/ZIP Co de Phone Number [facility] [address] * HIV 1/2 ANTIGEN/ANTIBODY,FOURTH GENERATION W/RFL (02/19/2022 4:16 PM EDT) HIV-1/2 ANTIGEN AND ANTIBODIES, 4TH GENERATION W/ REFLEX NON-REACT ZOILA NON-REACT ZOILA [facility] Comment: HIV-1 antigen and HIV-1/HIV-2 antibodies were not detected. There is no laboratory evidence of HIV infection. PLEASE NOTE: This information has been disclosed to you from records whose confidentiality may be protected by state law. If your state requires such protection, then the state law prohibits you from making any further disclosure of the information without the specific written consent of the person to whom it pertains, or as otherwise permitted by law. A general authorization for the release of medical or other information is NOT sufficient for this purpose. For additional information please refer to http://education.Open Garden/faq/MMM179 (This link is being provided for informational/ educational purposes only.) The performance of this assay has not been clinically validated in patients less than 2 years old. 02/19/2022 4:16 PM EDT us Aixa Ronquillo NP LAB BLOOD ORDERABLES Final Resu lt Performing Organization Address City/[facility] de Phone Number [facility] [address] from Last 3 Months or Most Recently Relevant to Health Maintenance Insurance [facility] STANDARD DENTAL-[facility] MEDICAID STAND ADULT Care Teams Wellness Rn Relationship Specialty Start Date End Date Salima Mccann FNP [address] [place] [phone] PCP - General Family Medicine 04/23/22
--- OUTSIDE RECORDS SUMMARY | 2025-06-03 16:03 | XMS_ITS | Encounter Summary ---
Author Organization [employer] Address [address] [place] [address] Care Team Providers Care Application Project Leader Name Role Phone Salima Mccann FENDER REPAIRER Primary Care Provider [phone] Reason for Visit * Reason Onset Date Comments Appointment 08/16/2024 Encounter Details Date Type Department Care Team ([facility] st Contact Info) Description 08/16/2024 Telephone [facility] [address] [place] [address] Joseph Palafox DDS [address] [place] [address] Appointment Social History Tobacco Use Types Packs/Day Years Used Date Smoking Tobacco: Never Smokeless Tobacco: Never Alcohol Use Standard Drinks/Week Comments Never 0 [...] encounter Miscellaneous Notes * Telephone Encounter - Elvis Madrid - 08/16/2024 12:13 PM EST Please call pt back to rs appt. [facility] office was busy CS documented in this encounter Plan of Treatment Not on file documented as of this encounter Visit Diagnoses Not on filedocumented in this encounter Additional Health Concerns Assessment Noted Time PHQ-9 Depression Total Score: 8 07/13/20 24 10:08 AM EST documented as of this encounter Care Teams Application Project Leader Relationship Specialty Start Date End Date Salima Mccann FNP [address] [place] [id number] PCP - General Family Medicine 04/23/22 documented as of this encounter
[2025-06-03 16:14] LABS: Anion Gap 11 (12-20); Blood Urea Nitrogen 12 mg/dL (9-16); Calcium 8.8 mg/dL (8.4-10.2); Carbon Dioxide 26 mmol/L (22-29); Chloride 109 mmol/L (96-108); Creatinine Clr Calc Pharmacy 122.0; Estimated Glomerular Filt Rate > 60; Potassium 3.9 mmol/L (3.3-5.1); Sodium 142 mmol/L (135-145)
[2025-06-03] MEDS: iohexoL 350 MG/ML 100 ML INFUS..BTL IV (17:14)
[2025-06-03 17:28] VITALS: BP 204/91; PULSE 82; RESP 18; O2SAT 97
[2025-06-03] MEDS: vancomycin/NS 2,000 MG/500 ML PLAST..BAG 250 MG IV (17:34)
--- NOTE | 2025-06-03 17:42 | PC.NURSE ---
pt medicated per MAR- awating CT imaging
[2025-06-03 17:45] LABS: Appearance Urine Clear; Glucose Urine UA Negative (Negative); PH 7.0 (5.0-9.0); Specific Gravity - Urine >= 1.030 (1.005-1.025)
--- NOTE | 2025-06-03 19:47 | PM.IMHP ---
History of Present Illness Date of Service: 06/03/25 Attending physician on admission: Nelida Harrison Chief Complaint: Right hand pain Lynda Gillespie is a 44 years old woman with past medical history significant for essential hypertension, TBI, seizures, anemia on iron pills and CVA presents to the ED complaining of right hand pain and swelling that has been getting worse since Thursday. He also noted that pus was coming out from an area of the palm. She said that this started as an insect bite. She reported fever of 101. She did not report any headache, palpitations or dizziness. She did not report any acute cardiopulmonary, gastrointestinal or genitourinary symptoms. In the ED she was found with the following vital signs: Temp 96.7 degrees, heart rate 67, respiratory rate 20, BP 186/78 then 204/91. O2 sats 97 RA. Blood workup showed no leukocytosis or bandemia above left shifting. Hemoglobin is 9.1 and at baseline. Platelets are normal. There are no significant electrolyte imbalances. BUN is 12 and creatinine 0.60. Right hand CT scan with IV contrast showed an abscess fissuring 3.5 cm of the 1st digit and between the 1st and 2nd digits at the palmar aspect without evidence of osteomyelitis. ED Tx: Zosyn 3.375 g IV, vancomycin 2 g IV, morphine 4 mg IV, NS 1 L bolus, acetaminophen 1 g IV Review of Systems Review of Systems: All 12 systems were reviewed and normal except as noted in HPI. [facility] Medical History (Updated 06/04/25 @ 19:09 by Nelida Harrison MD) Hypertension Hemorrhoids Menometrorrhagia Iron deficiency anemia Acute on chronic blood loss anemia TBI (traumatic brain injury) Seizure Stroke Surgical History Hx of tubal ligation History of Social History Household Members: Family Housing: Apartment Do you presently have visiting nurse or other home services: No Patient Tobacco Use Status: Never used Tobacco Cigarettes Per Day: 1 Years Smoked: 28 e-Cigarette/Vaping Use: Never Used Second Hand Smoke Exposure: No service: No Current occupational status: employed Meds Allergies Allergy/AdvReac Type Severity Reaction Status Date / Time No Known Allergies (No Known Allergy Verified 06/03/25 15:21 Allergies*) Active Medications: Current Medications Acetaminophen (Acetaminophen 325 Mg Tablet) 650 mg PO Q6H PRN PRN Reason: Pain, Mild 1-3,fever,headache Calcium Carbonate (Calcium Carbonate 750 Mg Tab.Chew) 750 mg PO Q4H PRN PRN Reason: Heartburn Ceftriaxone Sodium (Ceftriaxone Sodium 1 Gm Vial) 1 gm IVPUSH DAILY CHARIS Magnesium Hydroxide (Milk Of Magnesia 30 Ml Oral.Susp) 30 ml PO DAILY PRN PRN Reason: Constipation Melatonin (Melatonin 3 Mg Tablet) 6 mg PO BEDTIME PRN PRN Reason: Insomnia Pharmacy Consult (Consult Rx Vancomycin Dosing) 1 each MISCELLANE DAILY PRN PRN Reason: Consult order Prochlorperazine Edisylate (Prochlorperazine Edisylate 10 Mg/2 Ml Vial) 5 mg IVPUSH Q6H PRN PRN Reason: Nausea and Vomiting Sodium Chloride (0.9 % Sodium Chloride Flush 3 Ml Syringe) 3 ml IVFLUSH QSHIFT [facility] Home Medications ?Medication ?Instructions ?Recorded ?Confirmed ?Last Taken ?Type acetaminophen 650 mg 650 mg PO Q8H PRN Anxiety 06/04/25 06/04/25 Unknown History tablet,extended release ferrous sulfate 325 mg (65 mg 325 mg PO DAILY 06/04/25 06/04/25 Unknown History iron) tablet fexofenadine 180 mg tablet 180 mg PO DAILY 06/04/25 06/04/25 Unknown History hydroxyzine HCl 25 mg tablet 25 mg PO TID PRN Anxiety 06/04/25 06/04/25 Unknown History lidocaine 5 % topical patch 1 patch topical DAILY PRN Pain 06/04/25 06/04/25 Unknown History Physical Exam Vital Signs and Narrative: Vital Signs: Last Vital Signs Temp 96.7 F L 06/03/25 15:18 Pulse 82 06/03/25 17:28 Resp 18 06/03/25 17:28 BP 204/91 H 06/03/25 17:28 Pulse Ox 97 06/03/25 17:28 O2 Del Method Room Air 06/03/25 17:28 BMI result Body Mass Index 35.5 General: Alert, oriented, in no acute distress. Well nourished and cooperative. Afebrile. HEENT: Head normocephalic, atraumatic. PER, EOMI. Sclerae anicteric, conjunctiva clear. Oropharynx without erythema or exudate. Mucous membranes moist. Neck: Supple, no lymphadenopathy, or JVD. Heart: RRR, no murmurs, rubs or gallops. Lungs: Clear to auscultation bilaterally. No wheezes, rales, or rhonchi. Normal respiratory effort. Abdomen: Soft, non tenderness, nondistended, normoactive bowel sounds. No hepatosplenomegaly, masses, rebound or guarding. Extremities: Right hand: Thenar region is swollen, tenderness to palpation with large pustular area. Musculoskeletal: Full range of motion. No joint swelling, deformity, or tenderness. Normal muscle tone and strength. Skin: Warm/Dry. No pallor. No jaundice. Neurologic: Alert & oriented x4. Moving all extremities spontaneously. Normal speech. Psychological: Normal mood and affect. Thought process coherent. Results Labs 06/04/25 05:28 06/04/25 05:28 Labs: Laboratory Results - last 24 hr 06/03/25 06/03/25 15:51 17:36 MCV 72.5 L MCH 22.1 L MCHC 30.5 L RDW 20.1 H Plt Count 367 MPV 9.8 Immature Gran % (Auto) 0.7 H Neut % (Auto) 74.6 H Lymph % (Auto) 17.5 L [place] % (Auto) 4.6 Eos % (Auto) 2.3 Baso % (Auto) 0.3 Lymph # (Auto) 1.9 [place] # (Auto) 0.5 Eos # (Auto) 0.2 Baso # (Auto) 0.0 Abs Immat Gran (auto) 0.07 H Absolute Neuts (auto) 7.9 Absolute Nucleated RBC 0.000 Nucleated RBC % (auto) 0.0 Anion Gap 11 L Estim Creat Clear Calc 122.0 Estimated GFR > 60 Random Glucose 94 Lactic Acid 1.6 Calcium 8.8 Urine Color Yellow Urine Appearance Clear Urine pH 7.0 Ur Specific [place] >= 1.030 H Urine Protein Negative Urine Glucose (UA) Negative Urine Ketones Negative Urine Blood Negative Urine Nitrite Negative Ur Leukocyte Esterase Negative Assessment and Plan (1) Abscess of right hand: Status: Acute (2) Cellulitis: Qualifiers: Site of cellulitis: extremity Laterality: right Status: Acute Plan Lynda Gillespie is a 44 y/o woman who presents with: Right hand cellulitis and abscess of the thenar region. Empiric IV antibiotic therapy with vancomycin and ceftriaxone. Pain control. Empiric therapy as needed. Orthopedic surgery consult -contacted by ED and recommended NPO after midnight for procedure in the morning. Essential hypertension. Amlodipine 5 mg p.o. bedtime. Continue to monitor BP. Intermittent asthma. No respiratory symptoms at this time. Bronchodilator therapy as needed. Chronic anemia. At baseline. Continue iron pills. History of seizures/TBI. Not longer taking medications for this. History of CVA x2. Residual right hemiparesis. Code status: Full. DVT prophylaxis: Low risk. Encourage ambulation. Patient will need hospitalization for at least 2 midnights for IV antibiotic therapy as well as surgical procedure by Orthopedic surgeon. This documentation was generated using dictation software; minor spreading or transcription manager errors may be present. Quality Stroke Does the patient have a stroke diagnosis?: No VTE Prior VTE?: No VTE Risk Level:: Medical - moderate - high VTE Device Contraindication: Treatment Not Indicated VTE Drug Contraindication: Treatment Not Indicated
[2025-06-03 20:27] VITALS: BP 204/91
--- NOTE | 2025-06-03 23:46 | PC.NURSE ---
Took over care at 23:00 from INOCENCIA Sanches, dressing change,serosanguinous drainage.
[2025-06-03 23:48] VITALS: BP 136/62; PULSE 68; RESP 18; TEMP 36.8; O2SAT 100
--- NOTE | 2025-06-03 23:51 | MHC.EDTECH ---
This tech took over care of pt at 2300, rounds, vitals,and belongings list completed, call mcdonough in reach
[2025-06-03] MEDS: oxyCODONE HCl Immed Release 5 MG TABLET PO (23:53)
--- NOTE | 2025-06-03 23:53 | PC.NURSE ---
medicated per mar
[2025-06-04] VITALS (13 sets, daily range): BP systolic 145–196; BP diastolic 58–80; PULSE 57–86; RESP 15–20; TEMP 35.9–37.2; O2SAT 95–99; BMI 36.9
--- NOTE | 2025-06-04 03:50 | PC.NURSE ---
dressing change, due to increase drainage.
--- NOTE | 2025-06-04 04:02 | PC.NURSE ---
pt oob to bathroom.
[2025-06-04] MEDS: 0.9 % Sodium Chloride Flush 3 ML SYRINGE IVFLUSH ×2 (05:36→17:02)
[2025-06-04 06:05] LABS: MANUAL DIFF FLAG NO
[2025-06-04 06:12] LABS: Hematocrit 26.9 % (37.0-47.0); Hemoglobin 8.4 g/dl (12.0-16.0); Imm Gran Abs Auto 0.09 X10*3/uL (0.00-0.03); Imm Gran Pct Auto 1.0 % (0.0-0.4); Lymphocytes Absolute Auto 2.4 X10*3/uL (1.2-4.9); Mean Corpuscular HGB Conc 31.2 g/dl (31.0-35.0); Mean Corpuscular Hemoglobin 22.5 pg (27.0-33.0); Mean Corpuscular Volume 71.9 fL (80.0-98.0); NRBC Abs Auto 0.000 X10*3/uL (0.0-0.012); NRBC Pct Auto 0.0 /100WBC (0.0-0.2); Platelet Count 338 X10*3/uL (160-400); Red Blood Count 3.74 X10*6/uL (4.20-5.50); White Blood Count 8.8 X10*3/uL (4.8-10.8)
[2025-06-04 06:17] LABS: INTERNATIONAL NORM RATIO 1.0 (0.9-1.1); Prothrombin Time 11.6 SEC (10.9-12.4)
[2025-06-04 06:24] LABS: Anion Gap 11 (12-20); Blood Urea Nitrogen 7 mg/dL (9-16); Calcium 8.4 mg/dL (8.4-10.2); Carbon Dioxide 25 mmol/L (22-29); Chloride 107 mmol/L (96-108); Creatinine Clr Calc Pharmacy 133.1; Estimated Glomerular Filt Rate > 60; Potassium 3.7 mmol/L (3.3-5.1); Sodium 139 mmol/L (135-145)
--- NOTE | 2025-06-04 06:38 | PC.NURSE ---
pt sleeping no sign of distress, postive cms and pulse to right hand, hand is swollen and red, draining serosanguinous fluid with small amount of bright red blood. dressing dry and intact.
--- NOTE | 2025-06-04 07:41 | PC.NURSE ---
Report received and care assumed at 0700. The pt was found to be resting comfortably in the stretcher with eyes closed, respirations even and unlabored without distress noted. The pt was easily arousable to verbal stimuli at which point she reports the presence of 8/10 right hand pain. The hand is currently wrapped/dressed with a DCD with +CMS. Pt denies any needs at this time, left side bedrail remains down to allow for easier access to and from the bathroom per request. this RN will review the MAR to see if there are any medications available to assist with pain to help encourage/support comfort. call mcdonough is in reach
--- NOTE | 2025-06-04 08:26 | P.PNIM_ITS ---
Subjective Subjective Date of Service: 06/04/25 Interval History: right hand cellulitis Review of Systems s/p Right hand and deep thenar compartment I&D has right hand soarness , no fevers Review of Systems: Yes all other systems are reviewed and are negative Physical Exam 2 Exam: Exam: Appearance: Alert.? Oriented X3.? cvs: rrr, [id number] . res: clear to auscultation ,no rhonchii or wheezing abd: no rebound or guarding ,nt, bs present. ext pulses present , no cyanosis. right hand: wrapped ,s/p i&D. neuro: axo3 , nonfocal. Vital Signs: Vital Signs: Last Vital Signs Temp 98.9 F 06/04/25 04:00 Pulse 67 06/04/25 04:00 Resp 16 06/04/25 04:00 BP 145/58 H 06/04/25 04:00 Pulse Ox 99 06/04/25 04:00 O2 Del Method Room Air 06/04/25 04:00 BMI result Body Mass Index 35.5 Objective Data Active Medications Acetaminophen (Acetaminophen 325 Mg Tablet) 650 mg PO Q6H PRN PRN Reason: Pain, Mild 1-3,fever,headache Amlodipine Besylate (Amlodipine Besylate 5 Mg Tablet) 5 mg PO BEDTIME CHARIS; Protocol Last Admin: 06/03/25 20:27 Dose: 5 mg Documented By: CHRISTA Calcium Carbonate (Calcium Carbonate 750 Mg Tab.Chew) 750 mg PO Q4H PRN PRN Reason: Heartburn Ceftriaxone Sodium (Ceftriaxone Sodium 1 Gm Vial) 1 gm IVPUSH Q24H CHARIS Last Admin: 06/03/25 21:16 Dose: 1 gm Documented By: CHRISTA Vancomycin HCl 1,250 mg/ (Sodium Chloride) 250 mls @ 166.667 mls/hr IV Q12H [facility] Last Infusion: 06/04/25 07:15 Dose: Infused Documented By: BEN Magnesium Hydroxide (Milk Of Magnesia 30 Ml Oral.Susp) 30 ml PO DAILY PRN PRN Reason: Constipation Melatonin (Melatonin 3 Mg Tablet) 6 mg PO BEDTIME PRN PRN Reason: Insomnia Morphine Sulfate (Morphine Sulfate 4 Mg/Ml Cartridge) 4 mg IVPUSH Q4H PRN; Protocol PRN Reason: Pain, Severe (Pain Scale 7-10) Oxycodone HCl (Oxycodone Hcl Immed Release 5 Mg Tablet) 5 mg PO Q6H PRN PRN Reason: Pain, Moderate(Pain Scale 4-6) Last Admin: 06/03/25 23:53 Dose: 5 mg Documented By: RAINE Pharmacy Consult (Consult Rx Vancomycin Dosing) 1 each MISCELLANE DAILY PRN PRN Reason: Consult order Prochlorperazine Edisylate (Prochlorperazine Edisylate 10 Mg/2 Ml Vial) 5 mg IVPUSH Q6H PRN PRN Reason: Nausea and Vomiting Sodium Chloride (0.9 % Sodium Chloride Flush 3 Ml Syringe) 3 ml IVFLUSH QSHIFT [facility] Last Admin: 06/04/25 07:40 Dose: Not Given Documented By: BEN Non-Admin Reason: 10 ml FLush used Labs 06/04/25 05:28 06/04/25 05:28 Labs: Laboratory Results - last 24 hr 06/03/25 06/03/25 06/04/25 15:51 17:36 05:28 MCV 72.5 L 71.9 L MCH 22.1 L 22.5 L MCHC 30.5 L 31.2 RDW 20.1 H 19.8 H Plt Count 367 338 MPV 9.8 10.2 Immature Gran % (Auto) 0.7 H 1.0 H Neut % (Auto) 74.6 H 61.9 Lymph % (Auto) 17.5 L 27.0 [place] % (Auto) 4.6 6.2 Eos % (Auto) 2.3 3.6 Baso % (Auto) 0.3 0.3 Lymph # (Auto) 1.9 2.4 [place] # (Auto) 0.5 0.5 Eos # (Auto) 0.2 0.3 Baso # (Auto) 0.0 0.0 Abs Immat Gran (auto) 0.07 H 0.09 H Absolute Neuts (auto) 7.9 5.4 Absolute Nucleated RBC 0.000 0.000 Nucleated RBC % (auto) 0.0 0.0 PT 11.6 INR 1.0 Anion Gap 11 L 11 L Estim Creat Clear Calc 122.0 133.1 Estimated GFR > 60 > 60 Random Glucose 94 88 Lactic Acid 1.6 Calcium 8.8 8.4 Urine Color Yellow Urine Appearance Clear Urine pH 7.0 Ur Specific [place] >= 1.030 H Urine Protein Negative Urine Glucose (UA) Negative Urine Ketones Negative Urine Blood Negative Urine Nitrite Negative Ur Leukocyte Esterase Negative Assessment and Plan (1) Cellulitis: Status: Acute Assessment and Plan: 44 y/o woman who presents with: Right hand cellulitis and abscess of the thenar region. Empiric IV antibiotic therapy with vancomycin and ceftriaxone. Pain control. Empiric therapy as needed. Orthopedic surgery consult -contacted by ED and recommended s/p i&d Essential hypertension. Amlodipine 5 mg p.o. bedtime. Continue to monitor BP. Intermittent asthma. No respiratory symptoms at this time. Bronchodilator therapy as needed. Chronic anemia. At baseline. Continue iron pills. History of seizures/TBI. Not longer taking medications for this. History of CVA x2. Residual right hemiparesis. Code status: Full. DVT prophylaxis: Low risk. Encourage ambulation. ongoing need hospitalization for cellulitis: IV antibiotic therapy as well as surgical procedure by Orthopedic surgeon. Quality Stroke Does the patient have a stroke diagnosis?: No VTE Prior VTE?: No VTE Risk Level:: Medical - moderate - high VTE Device Contraindication: Treatment Not Indicated VTE Drug Contraindication: Treatment Not Indicated
--- NOTE | 2025-06-04 08:46 | PC.NURSE ---
Late entry from 814 Pt found to be resting comfortably in stretcher with eyes closed upon RN's arrival to bedside. This RN was going to cycle a BP on the patient and make her aware of her available IVP Morphine for her pain however the pt remained sleeping when this RN called her name softly. Due to the fact the pt did not appear to be in any acute distress or discomfort and was allowed to sleep it was decided that this RN would hold off on administering any PRN medications at this time.
--- NOTE | 2025-06-04 09:05 | P.CONOP_ITS ---
History of Present Illness HPI Consult date: 06/04/25 Chief complaint: right hand cellulitis and abscess Narrative: 44-year-old female admitted to the medical service for right hand abscess. She states approximately 5 days ago she noticed an insect bite in her right hand unsure of which type of insect. She developed redness and pain/swelling. This did worsen over time which prompted her to come into the emergency department yesterday for evaluation. X-rays of the right hand were negative for any foreign bodies. There is evidence of soft tissue swelling. CT scan of the right hand significant for 3.5 cm abscess between the 1st and 2nd webspace of the palmar aspect of the hand. While in the emergency department the abscess did spontaneously rupture and there was approximately 30-40 cc of pus drained from the area. Patient was started on IV antibiotics and Orthopedics was consulted for further recommendations. Patient states she had a CVA/TBI approximately 9 years ago which has left her with right-sided weakness. She states at baseline she can not make a closed fist. Review of Systems 2 Review of Systems: Yes all other systems are reviewed and are negative PMFSH Past Medical History Medical History Hemorrhoids Menometrorrhagia Iron deficiency anemia Acute on chronic blood loss anemia TBI (traumatic brain injury) Seizure Stroke Surgical History Surgical History Hx of tubal ligation History of Social History Social History Household Members: Family Housing: House Do you presently have visiting nurse or other home services: No (Has [employer] in past) Patient Tobacco Use Status: Never used Tobacco Cigarettes Per Day: 1 Years Smoked: 28 Smoked in Last 30 Days: No e-Cigarette/Vaping Use: Never Used Second Hand Smoke Exposure: No Use of substances other than those prescribed or required for medical reasons: No Advance Directives: No Advance Directives Information Provided: No Do you have a plan to hurt others: No Plan Nutrition Risks: No Nutritional Risk service: No Current occupational status: employed Meds Allergies Allergy/AdvReac Type Severity Reaction Status Date / Time No Known Allergies (No Known Allergy Verified 06/03/25 15:21 Allergies*) Active Medications: Current Medications Acetaminophen (Acetaminophen 325 Mg Tablet) 650 mg PO Q6H PRN PRN Reason: Pain, Mild 1-3,fever,headache Amlodipine Besylate (Amlodipine Besylate 5 Mg Tablet) 5 mg PO BEDTIME [facility]; Protocol Last Admin: 06/03/25 20:27 Dose: 5 mg Calcium Carbonate (Calcium Carbonate 750 Mg Tab.Chew) 750 mg PO Q4H PRN PRN Reason: Heartburn Ceftriaxone Sodium (Ceftriaxone Sodium 1 Gm Vial) 1 gm IVPUSH Q24H [facility] Last Admin: 06/03/25 21:16 Dose: 1 gm Vancomycin HCl 1,250 mg/ (Sodium Chloride) 250 mls @ 166.667 mls/hr IV Q12H [facility] Last Infusion: 06/04/25 07:15 Dose: Infused Magnesium Hydroxide (Milk Of Magnesia 30 Ml Oral.Susp) 30 ml PO DAILY PRN PRN Reason: Constipation Melatonin (Melatonin 3 Mg Tablet) 6 mg PO BEDTIME PRN PRN Reason: Insomnia Morphine Sulfate (Morphine Sulfate 4 Mg/Ml Cartridge) 4 mg IVPUSH Q4H PRN; Protocol PRN Reason: Pain, Severe (Pain Scale 7-10) Oxycodone HCl (Oxycodone Hcl Immed Release 5 Mg Tablet) 5 mg PO Q6H PRN PRN Reason: Pain, Moderate(Pain Scale 4-6) Last Admin: 06/03/25 23:53 Dose: 5 mg Pharmacy Consult (Consult Rx Vancomycin Dosing) 1 each MISCELLANE DAILY PRN PRN Reason: Consult order Prochlorperazine Edisylate (Prochlorperazine Edisylate 10 Mg/2 Ml Vial) 5 mg IVPUSH Q6H PRN PRN Reason: Nausea and Vomiting Sodium Chloride (0.9 % Sodium Chloride Flush 3 Ml Syringe) 3 ml IVFLUSH QSHIFT [facility] Last Admin: 06/04/25 07:40 Dose: Not Given Home Medications ?Medication ?Instructions ?Recorded ?Confirmed ?Last Taken ?Type albuterol sulfate 90 mcg/actuation 2 puff inhalation Q 4-6H PRN 06/23/22 07/13/24 Unknown History aerosol inhaler (Proventil HFA) Wheezing amitriptyline 25 mg tablet 25 mg PO BEDTIME 08/06/23 1 09/12/23 07/12/24 History ferrous sulfate 325 mg (65 mg 650 mg PO DAILY 08/06/23 07/13/24 07/12/24 History iron) tablet (FeroSul) hydroxyzine HCl 25 mg tablet 25 mg PO DAILY PRN Anxiet y 08/06/23 07/13/24 Unknown History acetaminophen 500 mg tablet 1,000 mg PO Q6H PRN pain 1 09/12/23 07/13/24 07/13/24 History (Tylenol Extra Strength) cetirizine 10 mg tablet 10 mg PO DAILY 07/13/2407/0107/12/24 History chlorthalidone 25 mg tablet 12.5 mg PO DAILY 07/13/24 07/13/24 07/12/24 History lidocaine 5 % topical patch 1 patch topical Q12H PRN P ain 07/13/24 07/13/24 Unknown History naproxen 500 mg tablet 1,000 mg PO DAILY 07/13/24 1 09/12/23 07/13/24 History Physical Exam 2 Vital Signs: Vital Signs: Last Vital Signs Temp 98.9 F 06/04/25 04:00 Pulse 67 06/04/25 04:00 Resp 16 06/04/25 04:00 BP 145/58 H 06/04/25 04:00 Pulse Ox 99 06/04/25 04:00 O2 Del Method Room Air 06/04/25 04:00 BMI result Body Mass Index 35.5 Const: General: cooperative, healthy appearing, comfortable and no acute distress Extrem: Other: Right hand abscess over the palmar aspect of the right hand along the thenar eminence which extends into the webspace of the 1st and 2nd digit. She has no evidence of infection in the flexor tendons as she can passively and actively extend. She can attempt to make a fist however does have baseline weakness. There is some erythema and swelling that extends into the dorsum of the hand but no evidence of abscess. Neurovascularly intact Results Labs 06/04/25 05:28 06/04/25 05:28 Labs: Abnormal lab results 06/03/25 06/03/25 06/04/25 Range/Units 15:51 17:36 05:28 RBC 4.11 L 3.74 L (4.20-5.50) X10*6/uL Hgb 9.1 L 8.4 L (12.0-16.0) g/dl Hct 29.8 L 26.9 L (37.0-47.0) % MCV 72.5 L 71.9 L (80.0-98.0) fL MCH 22.1 L 22.5 L (27.0-33.0) pg MCHC 30.5 L (31.0-35.0) g/dl RDW 20.1 H 19.8 H (11.0-16.0) % Immature Gran % (Auto) 0.7 H 1.0 H (0.0-0.4) % Neut % (Auto) 74.6 H (45-73) % Lymph % (Auto) 17.5 L (20-40) % Abs Immat Gran (auto) 0.07 H 0.09 H (0.00-0.03) X10*3/uL Chloride 109 H (96-108) mmol/L Anion Gap 11 L 11 L (12-20) BUN 7 L (9-16) mg/dL Ur Specific [place] >= 1.030 H (1.005-1.025) H & H 06/03/25 06/04/25 Range/Units 15:51 05:28 Hgb 9.1 L 8.4 L (12.0-16.0) g/dl Hct 29.8 L 26.9 L (37.0-47.0) % Coagulation 06/04/25 Range/Units 05:28 INR 1.0 (0.9-1.1) All other labs normal. Assessment and Plan (1) Abscess of right hand: Status: Acute Plan I discussed with the patient the extent of her condition which is a right hand abscess and the options available which includes irrigation and debridement of the abscess. I discussed with the patient the procedure in detail. I discussed with the patient the risk benefits and alternatives to the procedure. Risk including but not limited to ongoing infection, need for re peat surgery, stiffness, pain, loss of digit and/or injury to surrounding nerves and tissues. She does express understanding and does consent to proceed with right hand irrigation and debridement with Dr. Bowser. The patient will remain NPO. Procedures Date of Service Date of Service: 06/04/25
--- NOTE | 2025-06-04 09:18 | PHA.MEDREC ---
Pharmacy Consult ? Medication Reconciliation Pharmacy has completed the medication reconciliation. Patient poor historian, read claims and patient agreeable. Also states she takes blood pressure pill but does not know name, nothing in claim HX
--- NOTE | 2025-06-04 10:08 | HO.ANESPROP2 ---
HPI - Anesthesia Eval Consult details Narrative: Right hand abscess PMFSH Active Problems Active Problems: All Active Problems Cellulitis (Acute) Abscess of right hand (Acute) Acute on chronic anemia (Acute) Abnormal uterine bleeding (AUB) (Acute) History of (Acute) Past Medical History Medical History (Updated 06/04/25 @ 11:20 by Dalton Torres MD) Hypertension Hemorrhoids Menometrorrhagia Iron deficiency anemia Acute on chronic blood loss anemia TBI (traumatic brain injury) Seizure Stroke Family History Family history of problems with anesthesia: No Surgical History Surgical History Hx of tubal ligation History of History of Problems with Anesthesia: No Social History Social History Household Members: Family Housing: House Do you presently have visiting nurse or other home services: No (Has [employer] in past) Patient Tobacco Use Status: Never used Tobacco Cigarettes Per Day: 1 Years Smoked: 28 e-Cigarette/Vaping Use: Never Used Second Hand Smoke Exposure: No service: No Current occupational status: employed Meds Allergies Allergy/AdvReac Type Severity Reaction Status Date / Time No Known Allergies (No Known Allergy Verified 06/03/25 15:21 Allergies*) Active Medications: Current Medications Acetaminophen (Acetaminophen 325 Mg Tablet) 650 mg PO Q6H PRN PRN Reason: Pain, Mild 1-3,fever,headache Amlodipine Besylate (Amlodipine Besylate 5 Mg Tablet) 5 mg PO BEDTIME [facility]; Protocol Last Admin: 06/03/25 20:27 Dose: 5 mg Calcium Carbonate (Calcium Carbonate 750 Mg Tab.Chew) 750 mg PO Q4H PRN PRN Reason: Heartburn Ceftriaxone Sodium (Ceftriaxone Sodium 1 Gm Vial) 1 gm IVPUSH Q24H [facility] Last Admin: 06/03/25 21:16 Dose: 1 gm Vancomycin HCl 1,250 mg/ (Sodium Chloride) 250 mls @ 166.667 mls/hr IV Q12H [facility] Last Infusion: 06/04/25 07:15 Dose: Infused Magnesium Hydroxide (Milk Of Magnesia 30 Ml Oral.Susp) 30 ml PO DAILY PRN PRN Reason: Constipation Melatonin (Melatonin 3 Mg Tablet) 6 mg PO BEDTIME PRN PRN Reason: Insomnia Morphine Sulfate (Morphine Sulfate 4 Mg/Ml Cartridge) 4 mg IVPUSH Q4H PRN; Protocol PRN Reason: Pain, Severe (Pain Scale 7-10) Last Admin: 06/04/25 09:18 Dose: 4 mg Oxycodone HCl (Oxycodone Hcl Immed Release 5 Mg Tablet) 5 mg PO Q6H PRN PRN Reason: Pain, Moderate(Pain Scale 4-6) Last Admin: 06/03/25 23:53 Dose: 5 mg Pharmacy Consult (Consult Rx Vancomycin Dosing) 1 each MISCELLANE DAILY PRN PRN Reason: Consult order Prochlorperazine Edisylate (Prochlorperazine Edisylate 10 Mg/2 Ml Vial) 5 mg IVPUSH Q6H PRN PRN Reason: Nausea and Vomiting Sodium Chloride (0.9 % Sodium Chloride Flush 3 Ml Syringe) 3 ml IVFLUSH [facility] Last Admin: 06/04/25 07:40 Dose: Not Given Home Medications ?Medication ?Instructions ?Recorded ?Confirmed ?Last Taken ?Type acetaminophen 650 mg 650 mg PO Q8H PRN Anxiety 06/04/25 06/04/25 Unknown History tablet,extended release ferrous sulfate 325 mg (65 mg 325 mg PO DAILY 06/04/25 06/04/25 Unknown History iron) tablet fexofenadine 180 mg tablet 180 mg PO DAILY 06/04/25 06/04/25 Unknown History hydroxyzine HCl 25 mg tablet 25 mg PO TID PRN Anxiety 06/04/25 06/04/25 Unknown History lidocaine 5 % topical patch 1 patch topical DAILY PRN Pain 06/04/25 06/04/25 Unknown History Exam Height,Weight and Vital Signs: Height 5 ft 2 in Weight 88.1 kg Last Vital Signs Temp 98.8 F 06/04/25 09:22 Pulse 58 06/04/25 09:22 Resp 20 06/04/25 09:22 BP 151/71 H 06/04/25 09:22 Pulse Ox 98 06/04/25 09:22 O2 Del Method Room Air 06/04/25 09:22 Pertinent Lab Results Pertinent Lab Results: Laboratory Tests 06/03/25 06/03/25 06/04/25 15:51 17:36 05:28 WBC 10.6 8.8 RBC 4.11 L 3.74 L Hgb 9.1 L 8.4 L Hct 29.8 L 26.9 L MCV 72.5 L 71.9 L MCH 22.1 L 22.5 L MCHC 30.5 L 31.2 RDW 20.1 H 19.8 H Plt Count 367 338 MPV 9.8 10.2 Immature Gran % (Auto) 0.7 H 1.0 H Neut % (Auto) 74.6 H 61.9 Lymph % (Auto) 17.5 L 27.0 [place] % (Auto) 4.6 6.2 Eos % (Auto) 2.3 3.6 Baso % (Auto) 0.3 0.3 Lymph # (Auto) 1.9 2.4 [place] # (Auto) 0.5 0.5 Eos # (Auto) 0.2 0.3 Baso # (Auto) 0.0 0.0 Abs Immat Gran (auto) 0.07 H 0.09 H Absolute Neuts (auto) 7.9 5.4 Absolute Nucleated RBC 0.000 0.000 Nucleated RBC % (auto) 0.0 0.0 PT 11.6 INR 1.0 Sodium 142 139 Potassium 3.9 3.7 Chloride 109 H 107 Carbon Dioxide 26 25 Anion Gap 11 L 11 L BUN 12 7 L Creatinine 0.60 0.55 Estim Creat Clear Calc 122.0 133.1 Estimated GFR > 60 > 60 Random Glucose 94 88 Lactic Acid 1.6 Calcium 8.8 8.4 Urine Color Yellow Urine Appearance Clear Urine pH 7.0 Ur Specific [place] >= 1.030 H Urine Protein Negative Urine Glucose (UA) Negative Urine Ketones Negative Urine Blood Negative Urine Nitrite Negative Ur Leukocyte Esterase Negative Airway Mallampati Class: II TM Dist: >3cm Neck ROM: Full Loose/Missing/Broken Teeth: No Heart: RRR Lungs: CTAB Assessment and Plan Assessment Anesthesia Assessment: Anesthesia Plan Discussed and Chart Reviewed Final Anesthetic Review Family History of Problems with Anesthesia: No History of Problems with Anesthesia: No NPO: Yes ASA Class: III Final Preanesthetic Review: No Changes in Pt Med Stat, Meds/Allgs Chart Reviewed, Consent Obtained/Reviewed and Anes Risks/Benef Reviewed Patient Risk: Intermediate Procedure Risk: Low Anesthetic Plan Anesthetic Plan: GA Disposition: Standard PACU
--- NOTE | 2025-06-04 10:27 | MHC.SHP ---
Pre-Procedural Eval Section A - 24 Hr Update-Section A only Date of Service: 06/04/25 The patient is an INPATIENT: Yes Changes since office visit: No Cold of Flu in the past 2 weeks, No New Medical Problems, No Changes in Medication and No Patient answered all questions The patient has been examined within 24 hours of the surgical procedure. The History & Physical has been completed within 30 days and I have reviewed it.: Yes Section B - Complete if H&P > 30 days Chief Complaint: right hand cellulitis and abscess Allergies: Allergies Allergy/AdvReac Type Severity Reaction Status Date / Time No Known Allergies (No Known Allergy Verified 06/03/25 15:21 Allergies*) Exam Exam Comment: I met the patient in preop hold. Her right hand has a bandage about the palm and the thumb that is clean dry and intact. She can easily flex and extend her fingers without pain. She says that beneath the bandage she can actively flex the IP joint of the thumb without pain. The photo I saw her hand showed significant swelling and erythema about the thenar mass and dorsal radial aspect of the hand. The CT scan and report were? evaluated by me and found to have a 3.5 cm diameter abscess in the volar aspect of the 1st webspace and thenar mass. Plan I have reviewed the history and physical and performed a pertinent physical examination on my patient. No changes have occurred unless specified. Assessment and plan: 1. Right hand infection with an abscess of the thenar compartment and volar aspect of the 1st webspace I educated the patient about this condition we discussed operative and non operative treatment options. I am recommending surgery and she wishes to proceed. The risks and benefits of operative treatment were discussed with the patient and the patient wishes to proceed with surgery. These risks include, but are not limited to risk of damage to blood vessels, nerves, tendons, infection, recurrence, incomplete relief of preoperative symptoms, persistent pain, possible need for further surgery and the risks associated with regional blocks and anesthesia. The plan is to take the patient to the operating room today for the following procedures: 1. Right hand I&D 2. [ ] All of the preoperative paperwork including the consent was filled out today. All the patient's questions were answered. Time Spent With Patient Time: Total time managing care of this patient today ____ minutes.
--- NOTE | 2025-06-04 10:30 | P.OP_ITS ---
Operative Note Operative Note Date of Service: 06/04/25 Narrative: Operative Note Narrative: Preop diagnosis: 1. Right hand infection with thenar abscess Postop diagnosis: Same Procedure: 1. Right hand and deep thenar compartment I&D Surgeon: Petrona Betancourt MD Food And Beverage Director: None Anesthesia: General Anesthesia Findings: Clotted blood and cloudy sanguinous purulence Implants: None Tourniquet time: 0 minutes EBL: 5.0 ml Specimen: Culture of purulence Drains: None Complications: None Disposition: Brought to the recovery room in stable condition Plan: Admit back to floor for continued IV antibiotics. Check cultures and adjust antibiotics accordingly Wound check and remove drains by orthopedics tomorrow. After that daily dressing changes with nursing should be sufficient. Consider early referral to OT hand surgery Close follow up with Orthopedics upon discharge Indications: The patient is a 44 year old woman with a right hand infection and thenar mass abscess following what she believes was a spider bite. . The risks and benefits of operative treatment, including but not limited to risk of damage to blood vessels, nerves, tendons, infection, recurrence, persistent pain or numbness, incomplete resolution of preoperative symptoms, or need for further surgery were discussed with the patient and they wished to proceed with surgery. Procedure: Once consent was obtained patient was brought back to the operating suite and placed in the operating table in a supine position. . Perioperative antibiotics and anesthesia was administered by the anesthesia team. A tourniquet was applied to the proximal aspect of the right upper extremity and the limb was prepped and draped in a standard surgical fashion. The limb was elevated and the tourniquet inflated to 250 mm of mercury for a total tourniquet time of 0 minutes. I made a 1.5 cm incision parallel to the thenar crease over the thenar mass. The incision was made through the skin to the subcutaneous tissues. I then spread into the thenar mass. We immediately had some sanguinous cloudy fluid. Pushing on the thenar mass we had some hematoma expressed. The cavity involve the thenar mass, and appeared to extend through the 1st webspace to the dorsal side. I made a 2nd 1 cm incision through the skin over the dorsal aspect of the 1st webspace. Again we excised some hematoma with a rongeur and sanguinous cloudy fluid. Then allowed me to irrigate through and through between the 2 incision sites. I copiously irrigated both the volar and dorsal aspects of the abscess cavity. Once our I and D was completed hemostasis obtained with a brief period of local pressure . No sutures were placed. I did pass 1 strip of iodoform gauze in the volar aspect of the abscess cavity in a 2nd strip of iodoform gauze through the dorsal aspect of the 1st webspace. The wound was infiltrated with some 1% lidocaine with epinephrine for postop pain control and a sterile dressing was applied. The patient appears to have tolerated the procedure well and with no complications. All digits were well vascularized conclusion of the case.
[2025-06-04] MEDS: oxyCODONE HCl Immed Release 5 MG TABLET PO ×2 (11:56→20:01)
[2025-06-05] VITALS (10 sets, daily range): BP systolic 122–164; BP diastolic 63–84; PULSE 54–74; RESP 12–20; TEMP 36–37.1; O2SAT 95–99
--- NOTE | 2025-06-05 | ECG_ITS ---
Test Reason : chest pain Blood Pressure : */* mmHG Vent. Rate : 52 BPM Atrial Rate : 52 BPM P-R Int : 166 ms QRS Dur : 74 ms QT Int : 474 ms P-R-T Axes : 60 38 37 degrees QTcB Int : 440 ms Sinus bradycardia Otherwise normal ECG When compared with ECG of 23-Jun-2022 22:01, No significant change was found Referred By: Nelida Harrison Electronically Signed By: NAMRATA MERCADO MD
[2025-06-05] MEDS: 0.9 % Sodium Chloride Flush 3 ML SYRINGE IVFLUSH ×3 (01:17→21:27)
[2025-06-05 02:26] LABS: Troponin-I High Sensitivity < 2.7 ng/L (<3.5-17.0)
[2025-06-05] MEDS: oxyCODONE HCl Immed Release 5 MG TABLET PO ×4 (02:46→14:09)
--- NOTE | 2025-06-05 05:29 | PC.NURSE ---
At approx 0115, pt c/o 5/10 chest pain radiating to her back. MD was notified. EKG obtained, per MD order. MD ordered labs and CXR. Both were obtained. Pt reports chest pain subsided. Plan of care continues.
[2025-06-05 06:10] LABS: Creatinine Clr Calc Pharmacy 128.9; Estimated Glomerular Filt Rate > 60
[2025-06-05 06:26] LABS: Troponin-I High Sensitivity < 2.7 ng/L (<3.5-17.0)
[2025-06-05] MEDS: Milk of Magnesia 30 ML ORAL.SUSP PO (06:41)
[2025-06-05] MEDS: Ferrous Sulfate 324 MG TABLET.DR PO (08:02)
--- NOTE | 2025-06-05 09:02 | HO.POSTANES ---
Post Anesthesia Evaluation Post Anesthesia Evaluation Date of Service: 06/05/25 Vital Signs: Vital Signs Temp Pulse Resp BP Pulse Ox O2 Del Method 06/05/25 07:34 96.8 F 66 12 162/77 H 95 Room Air 06/05/25 05:15 18 06/05/25 04:45 20 06/05/25 03:54 98.7 F 54 18 136/84 98 Room Air 06/05/25 03:46 16 06/05/25 01:18 97.5 F 54 18 164/69 H 98 Room Air 06/04/25 23:54 97.5 F 80 18 148/78 H 97 Room Air 06/04/25 23:28 18 06/04/25 22:58 18 Anesthesia: General Mental Status: Awake Pain Control: Satisfactory Nausea/Vomiting: None Hydration: Adequate Anesthesia-Related Issues: No Anes. Related Issues
--- NOTE | 2025-06-05 09:12 | PM.PNORT ---
Subjective Subjective Date of Service: 06/05/25 Interval history: Postop day 1 status post right hand I and D No overnight events Patient resting in bed with mild discomfort of the right hand Physical Exam Vital Signs: Vital Signs: Last Vital Signs Temp 96.8 F 06/05/25 07:34 Pulse 66 06/05/25 07:34 Resp 12 06/05/25 07:34 BP 162/77 H 06/05/25 07:34 Pulse Ox 95 06/05/25 07:34 O2 Del Method Room Air 06/05/25 07:34 BMI result Body Mass Index 36.9 Const: General: cooperative, healthy appearing and no acute distress Resp: Effort & Inspection: normal respiratory effort and able to speak in complete sentences Cardio: Rate: regular rate Peripheral pulses: Peripheral pulses 2+ throughout GI: Palpation (GI): Soft to palpation Skin: General skin exam: no rashes or lesions noted Extrem: Other: Right hand with 2 incisions 1 on the thenar eminence and 1 on the dorsum of the hand without drainage. Mild swelling. Neurovascularly intact. Procedures Date of Service Date of Service: 06/05/25 Progress Note: A&P Assessment and plan (1) Abscess of right hand: Status: Acute Assessment and Plan: Continue IV antibiotics per medicine's recommendations Packing was removed today and a dry dressing was applied Continue dry dressings daily with gauze and Ang wrap Occupational therapy for range of motion Follow up with Orthopedics 1 week after discharge Time Spent With Patient Time: Total time managing care of this patient today ____ minutes. Quality Stroke Does the patient have a stroke diagnosis?: No VTE Prior VTE?: No VTE Risk Level:: Medical - moderate - high VTE Device Contraindication: Treatment Not Indicated VTE Drug Contraindication: Treatment Not Indicated
--- NOTE | 2025-06-05 14:31 | MHC.CM.PN ---
CM MET WITH PT AT BEDSIDE. PT LIVES WITH MOTHER AND IS FUNCTIONALLY INDEPENDENT. NO SERVICES OR DME. PT DECLINES HCP COMPLETION AT THIS TIME. PCP [facility]. DP: PT MAY NEED [facility] ON DC (WOUND CARE/O.T.?) PT FIRST CHOICE [facility], REFERRAL SENT. PT ALSO REQUESTS PREFERRED PHARMACY BE [facility]. PT WILL NEED C SHUTTLE RIDE ON DC. CM WILL CONTINE TO FOLLOW FOR ANY CHANGE TO DC PLAN/NEEDS.
--- NOTE | 2025-06-05 15:26 | P.PNIM_ITS ---
Subjective Subjective Date of Service: 06/05/25 Interval History: right hand cellulitis , Gram-positive bacteremia Review of Systems has right hand soarness , no fevers Physical Exam 2 Exam: Exam: Appearance: Alert.? Oriented X3.? cvs: rrr, [id number] . res: clear to auscultation ,no rhonchii or wheezing abd: no rebound or guarding ,nt, bs present. ext pulses present , no cyanosis. right hand: wrapped ,s/p i&D. neuro: axo3 , nonfocal. Vital Signs: Vital Signs: Last Vital Signs Temp 97.5 F 06/05/25 12:00 Pulse 74 06/05/25 12:00 Resp 12 06/05/25 12:00 BP 161/76 H 06/05/25 12:00 Pulse Ox 97 06/05/25 12:00 O2 Del Method Room Air 06/05/25 12:00 BMI result Body Mass Index 36.9 Objective Data Active Medications Acetaminophen (Acetaminophen 325 Mg Tablet) 650 mg PO Q6H PRN PRN Reason: Pain, Mild 1-3,fever,headache Amlodipine Besylate (Amlodipine Besylate 5 Mg Tablet) 5 mg PO BEDTIME [facility]; Protocol Last Admin: 06/04/25 20:01 Dose: 5 mg Documented By: MANUEL Calcium Carbonate (Calcium Carbonate 750 Mg Tab.Chew) 750 mg PO Q4H PRN PRN Reason: Heartburn Ceftriaxone Sodium (Ceftriaxone Sodium 1 Gm Vial) 1 gm IVPUSH Q24H [facility] Last Admin: 06/04/25 22:58 Dose: 1 gm Documented By: MANUEL Ferrous Sulfate (Ferrous Sulfate 324 Mg Tablet.) 324 mg PO DAILY [facility] Last Admin: 06/05/25 08:02 Dose: 324 mg Documented By: ESTUARDO Hydroxyzine HCl (Hydroxyzine Hcl 25 Mg Tablet) 25 mg PO TID PRN PRN Reason: Anxiety Vancomycin HCl 1,250 mg/ (Sodium Chloride) 250 mls @ 166.667 mls/hr IV Q8H [facility] Last Infusion: 06/05/25 10:18 Dose: Infused Documented By: ESTUARDO Influenza Virus Vaccine (Flu Vacc [id number](6mo Up)/Pf 0.5 Ml Syringe) 0.5 ml IM .ONCE ONE Stop: 06/06/25 09:01 Lidocaine (Lidocaine 4 % Patch Adh..Patch) 1 patch TRANSDERMA DAILY PRN PRN Reason: Pain Loratadine (Loratadine 10 Mg Tablet) 10 mg PO DAILY [facility] Last Admin: 06/05/25 08:03 Dose: 10 mg Documented By: ESTUARDO Magnesium Hydroxide (Milk Of Magnesia 30 Ml Oral.Susp) 30 ml PO DAILY PRN PRN Reason: Constipation Last Admin: 06/05/25 06:41 Dose: 30 ml Documented By: MANUEL Melatonin (Melatonin 3 Mg Tablet) 6 mg PO BEDTIME PRN PRN Reason: Insomnia Morphine Sulfate (Morphine Sulfate 4 Mg/Ml Cartridge) 4 mg IVPUSH Q4H PRN; Protocol PRN Reason: Pain, Severe (Pain Scale 7-10) Last Admin: 06/05/25 08:54 Dose: 4 mg Documented By: ESTUARDO Naloxone HCl (Naloxone Hcl 0.4 Mg/Ml Vial) 0.04 mg IVPUSH Q5M PRN PRN Reason: Excessive sedation or RR < 8 Oxycodone HCl (Oxycodone Hcl Immed Release 5 Mg Tablet) 5 mg PO Q4H PRN PRN Reason: Pain, Moderate(Pain Scale 4-6) Last Admin: 06/05/25 14:09 Dose: 5 mg Documented By: ESTUARDO Pharmacy Consult (Consult Rx Vancomycin Dosing) 1 each MISCELLANE DAILY PRN PRN Reason: Consult order Prochlorperazine Edisylate (Prochlorperazine Edisylate 10 Mg/2 Ml Vial) 5 mg IVPUSH Q6H PRN PRN Reason: Nausea and Vomiting Sodium Chloride (0.9 % Sodium Chloride Flush 3 Ml Syringe) 3 ml IVFLUSH QSHIFT [facility] Last Admin: 06/05/25 08:04 Dose: Not Given Documented By: ESTUARDO Non-Admin Reason: IV Running Labs 06/04/25 05:28 06/05/25 05:26 Labs: Laboratory Results - last 24 hr 06/04/25 06/05/25 06/05/25 15:52 01:59 05:26 Hold Purple Top SEE NOTE Estim Creat Clear Calc 128.9 Estimated GFR > 60 Troponin I High Sens < 2.7 < 2.7 Random Vancomycin 7.5 L Microbiology Microbiology Results: Microbiology 06/03/25 15:51 Blood Culture - Preliminary Blood - Venous Prelim: GPC Gram Stain only 06/03/25 15:51 Blood Culture - Final Blood - Venous Coag negative Staphylococcus 06/03/25 18:34 Gram Stain - Final Hand Right Routine Culture - Preliminary Culture in progress. 06/04/25 10:45 Gram Stain - Final Hand Right Routine Culture - Preliminary Culture in progress. Assessment and Plan (1) Abscess of right hand: Status: Acute (2) Cellulitis: Status: Acute Plan 44 y/o woman who presents with: Right hand cellulitis and abscess of the thenar region. Empiric IV antibiotic therapy with vancomycin and ceftriaxone. Pain control. Empiric therapy as needed. Orthopedic surgery consult -contacted by ED and recommended s/p i&d Essential hypertension. Amlodipine 5 mg p.o. bedtime. Continue to monitor BP. Intermittent asthma. No respiratory symptoms at this time. Bronchodilator therapy as needed. Chronic anemia. At baseline. Continue iron pills. History of seizures/TBI. Not longer taking medications for this. History of CVA x2. Residual right hemiparesis. Code status: Full. DVT prophylaxis: Low risk. Encourage ambulation. ongoing need hospitalization for cellulitis: IV antibiotic therapy as well as surgical procedure by Orthopedic surgeon. Quality Stroke Does the patient have a stroke diagnosis?: No VTE Prior VTE?: No VTE Risk Level:: Medical - moderate - high VTE Device Contraindication: Treatment Not Indicated VTE Drug Contraindication: Treatment Not Indicated
[2025-06-06 03:11] VITALS: BP 126/61; PULSE 50; RESP 17; TEMP 36; O2SAT 96
[2025-06-06] MEDS: oxyCODONE HCl Immed Release 5 MG TABLET PO ×4 (03:14→23:19)
[2025-06-06 06:42] LABS: Creatinine Clr Calc Pharmacy 115.0; Estimated Glomerular Filt Rate > 60
[2025-06-06 07:38] VITALS: BP 116/54; PULSE 52; RESP 12; TEMP 36; O2SAT 97
[2025-06-06] MEDS: Ferrous Sulfate 324 MG TABLET.DR PO (08:56)
[2025-06-06] MEDS: 0.9 % Sodium Chloride Flush 3 ML SYRINGE IVFLUSH ×2 (09:12→20:15)
--- NOTE | 2025-06-06 10:10 | PM.PNORT ---
Subjective Subjective Date of Service: 06/06/25 Interval history: Postop day 2 status post right hand I and D No overnight events Patient resting in bed with mild discomfort of the right hand Physical Exam Vital Signs: Vital Signs: Last Vital Signs Temp 96.8 F 06/06/25 07:38 Pulse 52 06/06/25 07:38 Resp 12 06/06/25 07:38 BP 116/54 L 06/06/25 07:38 Pulse Ox 97 06/06/25 07:38 O2 Del Method Room Air 06/06/25 07:38 BMI result Body Mass Index 36.9 Const: General: cooperative, healthy appearing and no acute distress Resp: Effort & Inspection: normal respiratory effort and able to speak in complete sentences Cardio: Rate: regular rate Peripheral pulses: Peripheral pulses 2+ throughout GI: Palpation (GI): Soft to palpation Skin: General skin exam: no rashes or lesions noted Extrem: Other: Right hand with 2 incisions 1 on the thenar eminence and 1 on the dorsum of the hand without drainage. Mild swelling. Neurovascularly intact. Procedures Date of Service Date of Service: 06/06/25 Progress Note: A&P Assessment and plan (1) Abscess of right hand: Status: Acute Assessment and Plan: Continue IV antibiotics per medicine's recommendations Continue dry dressings daily with gauze and Ang wrap Occupational therapy for range of motion Follow up with Orthopedics 1 week after discharge Time Spent With Patient Time: Total time managing care of this patient today ____ minutes. Quality Stroke Does the patient have a stroke diagnosis?: No VTE Prior VTE?: No VTE Risk Level:: Medical - moderate - high VTE Device Contraindication: Treatment Not Indicated VTE Drug Contraindication: Treatment Not Indicated
[2025-06-06 11:52] VITALS: BP 124/58; PULSE 57; RESP 12; TEMP 36.4; O2SAT 95
[2025-06-06] MEDS: Milk of Magnesia 30 ML ORAL.SUSP PO (12:51)
--- NOTE | 2025-06-06 13:30 | HO.SKINPHOTO ---
Location: Right Hand Dressing changed. Small amount of cream/bloody colored drainage on removed dressing. Reapplied with gauze 4X4, gauze wrap and major bandage.
--- NOTE | 2025-06-06 15:05 | MHC.CM.PN ---
Per MD rounds, potential need for IV abx on dc. Awaiting ID eval. Patient has wound/dressing to right hand, and right sided weakness. Met with patient to discuss. Reports she is left handed and feels she could manage IV abx if recommended, her mother would be able to assist if needed. Referral to [facility] and [facility].
[2025-06-06 15:19] VITALS: BP 143/65; PULSE 57; RESP 17; TEMP 36; O2SAT 96
--- NOTE | 2025-06-06 15:49 | HO.PM.IMPN ---
Subjective Subjective Date of Service: 06/06/25 Interval History: right hand cellulitis , coagulase negative staph bacteremia?? Review of Systems Still has lot of wrist pain, range of motion somewhat restricted No fever Review of Systems: Yes all other systems are reviewed and are negative Physical Exam Exam: Exam: Appearance: Alert.? Oriented X3.? cvs: rrr, [id number] . res: clear to auscultation ,no rhonchii or wheezing abd: no rebound or guarding ,nt, bs present. ext pulses present , no cyanosis. right hand: wrapped ,s/p i&D. neuro: axo3 , nonfocal. Vital Signs: Vital Signs: Last Vital Signs Temp 96.8 F 06/06/25 15:19 Pulse 57 06/06/25 15:19 Resp 17 06/06/25 15:19 BP 143/65 H 06/06/25 15:19 Pulse Ox 96 06/06/25 15:19 O2 Del Method Room Air 06/06/25 15:19 BMI result Body Mass Index 36.9 Objective Data Active Medications Acetaminophen (Acetaminophen 325 Mg Tablet) 650 mg PO Q6H PRN PRN Reason: Pain, Mild 1-3,fever,headache Last Admin: 06/06/25 09:03 Dose: 650 mg Documented By: BECCA Amlodipine Besylate (Amlodipine Besylate 5 Mg Tablet) 5 mg PO BEDTIME [facility]; Protocol Last Admin: 06/05/25 21:27 Dose: 5 mg Documented By: NORMAN Calcium Carbonate (Calcium Carbonate 750 Mg Tab.Chew) 750 mg PO Q4H PRN PRN Reason: Heartburn Ceftriaxone Sodium (Ceftriaxone Sodium 1 Gm Vial) 1 gm IVPUSH Q24H [facility] Last Admin: 06/05/25 21:27 Dose: 1 gm Documented By: NORMAN Ferrous Sulfate (Ferrous Sulfate 324 Mg Tablet.Dr) 324 mg PO DAILY [facility] Last Admin: 06/06/25 08:56 Dose: 324 mg Documented By: BECCA Hydroxyzine HCl (Hydroxyzine Hcl 25 Mg Tablet) 25 mg PO TID PRN PRN Reason: Anxiety Vancomycin HCl 1,250 mg/ (Sodium Chloride) 250 mls @ 166.667 mls/hr IV Q8H [facility] Last Infusion: 06/06/25 10:45 Dose: Infused Documented By: BECCA Lidocaine (Lidocaine 4 % Patch Adh..Patch) 1 patch TRANSDERMA DAILY PRN PRN Reason: Pain Loratadine (Loratadine 10 Mg Tablet) 10 mg PO DAILY [facility] Last Admin: 06/06/25 08:56 Dose: 10 mg Documented By: BECCA Magnesium Hydroxide (Milk Of Magnesia 30 Ml Oral.Susp) 30 ml PO DAILY PRN PRN Reason: Constipation Last Admin: 06/06/25 12:51 Dose: 30 ml Documented By: BECCA Melatonin (Melatonin 3 Mg Tablet) 6 mg PO BEDTIME PRN PRN Reason: Insomnia Morphine Sulfate (Morphine Sulfate 4 Mg/Ml Cartridge) 4 mg IVPUSH Q4H PRN; Protocol PRN Reason: Pain, Severe (Pain Scale 7-10) Last Admin: 06/06/25 13:29 Dose: 4 mg Documented By: BECCA Naloxone HCl (Naloxone Hcl 0.4 Mg/Ml Vial) 0.04 mg IVPUSH Q5M PRN PRN Reason: Excessive sedation or RR < 8 Oxycodone HCl (Oxycodone Hcl Immed Release 5 Mg Tablet) 5 mg PO Q4H PRN PRN Reason: Pain, Moderate(Pain Scale 4-6) Last Admin: 06/06/25 10:42 Dose: 5 mg Documented By: BECCA Pharmacy Consult (Consult Rx Vancomycin Dosing) 1 each MISCELLANE DAILY PRN PRN Reason: Consult order Prochlorperazine Edisylate (Prochlorperazine Edisylate 10 Mg/2 Ml Vial) 5 mg IVPUSH Q6H PRN PRN Reason: Nausea and Vomiting Sodium Chloride (0.9 % Sodium Chloride Flush 3 Ml Syringe) 3 ml IVFLUSH QSHIFT [facility] Last Admin: 06/06/25 09:12 Dose: 3 ml Documented By: BECCA Labs 06/04/25 05:28 06/06/25 05:40 Labs: Laboratory Results - last 24 hr 06/05/25 06/06/25 16:50 05:40 Hold Purple Top SEE NOTE Estim Creat Clear Calc 115.0 Estimated GFR > 60 Random Vancomycin 15.0 Microbiology Microbiology Results: Microbiology 06/03/25 18:34 Gram Stain - Final Hand Right Routine Culture - Preliminary Streptococcus pyogenes (Grp A) Staphylococcus species 06/04/25 10:45 Gram Stain - Final Hand Right Routine Culture - Preliminary Culture in progress. 06/03/25 15:51 Blood Culture - Preliminary Blood - Venous Coag negative Staphylococcus 06/03/25 15:51 Blood Culture - Preliminary Blood - Venous Coag negative Staphylococcus Assessment and Plan (1) Abscess of right hand: Status: Acute (2) Cellulitis: Status: Acute Plan 44 y/o woman who presents with: Right hand cellulitis and abscess of the thenar region. Empiric IV antibiotic therapy with vancomycin and ceftriaxone. Pain control. Empiric therapy as needed. Orthopedic surgery consult -contacted by ED and recommended s/p i&d, blood culture grew-staph coagulase negative bacteremia?x2 Ortho following ID evaluation pendin Essential hypertension. Amlodipine 5 mg p.o. bedtime. Continue to monitor BP. Intermittent asthma. No respiratory symptoms at this time. Bronchodilator therapy as needed. Chronic anemia. At baseline. Continue iron pills. History of seizures/TBI. Not longer taking medications for this. History of CVA x2. Residual right hemiparesis. Code status: Full. DVT prophylaxis: Low risk. Encourage ambulation. ongoing need hospitalization for cellulitis: IV antibiotic therapy as well as surgical procedure by Orthopedic surgeon. Quality Stroke Does the patient have a stroke diagnosis?: No VTE Prior VTE?: No VTE Risk Level:: Medical - moderate - high VTE Device Contraindication: Treatment Not Indicated VTE Drug Contraindication: Treatment Not Indicated
--- NOTE | 2025-06-06 17:23 | HE.PHANOTE ---
RE: vanco Level 06/06 came back at 21.2 mg/L; decreased frequency back to 1250mg Q12H, predicted AUC subtherapeutic at 387 mg/L, trough of 10.4 mg/L. Q8H dosing predicts AUC of 587 and trough of 17.9, but d/t level coming back high will decrease and get new level after two doses 06/07 @1900
[2025-06-06 19:57] VITALS: BP 145/66; PULSE 83; RESP 15; TEMP 36.2; O2SAT 98
--- NOTE | 2025-06-06 23:14 | P.CNID_ITS ---
History of Present Illness Data of Consult Service Date: 06/06/25 Requesting physician: Diamond Blackmon Primary Care Provider: ADINA Cagle HPI Reason for consult: Group A strep infection hand She presents waking up with right hand swelling and pain. She doesnt recall biting her nails. Group A strep found in hand. Hand is still painful. Review of Systems 2 Review of Systems: Yes all other systems are reviewed and are negative PMFSH Past Medical History Medical History Hypertension Hemorrhoids Menometrorrhagia Iron deficiency anemia Acute on chronic blood loss anemia TBI (traumatic brain injury) Seizure Stroke Family History Family history: reviewed and not pertinent Surgical History Surgical History Hx of tubal ligation History of Social History Social History Household Members: Family Housing: Apartment Do you presently have visiting nurse or other home services: No Patient Tobacco Use Status: Never used Tobacco Cigarettes Per Day: 1 Years Smoked: 28 e-Cigarette/Vaping Use: Never Used Second Hand Smoke Exposure: No service: No Current occupational status: employed Meds Allergies Allergy/AdvReac Type Severity Reaction Status Date / Time No Known Allergies (No Known Allergy Verified 06/03/25 15:21 Allergies*) Active Medications: Current Medications Acetaminophen (Acetaminophen 325 Mg Tablet) 650 mg PO Q6H PRN PRN Reason: Pain, Mild 1-3,fever,headache Last Admin: 06/06/25 09:03 Dose: 650 mg Amlodipine Besylate (Amlodipine Besylate 5 Mg Tablet) 5 mg PO BEDTIME [facility]; Protocol Last Admin: 06/06/25 20:15 Dose: 5 mg Calcium Carbonate (Calcium Carbonate 750 Mg Tab.Chew) 750 mg PO Q4H PRN PRN Reason: Heartburn Ceftriaxone Sodium (Ceftriaxone Sodium 1 Gm Vial) 1 gm IVPUSH Q24H [facility] Last Admin: 06/06/25 23:08 Dose: 1 gm Ferrous Sulfate (Ferrous Sulfate 324 Mg Tablet.Dr) 324 mg PO DAILY [facility] Last Admin: 06/06/25 08:56 Dose: 324 mg Hydroxyzine HCl (Hydroxyzine Hcl 25 Mg Tablet) 25 mg PO TID PRN PRN Reason: Anxiety Vancomycin HCl 1,250 mg/ (Sodium Chloride) 250 mls @ 166.667 mls/hr IV Q12H [facility] Last Infusion: 06/06/25 23:08 Dose: Infused Influenza Virus Vaccine (Flu Vacc [id number](6mo Up)/Pf 0.5 Ml Syringe) 0.5 ml IM .ONCE ONE Stop: 06/07/25 14:01 Lidocaine (Lidocaine 4 % Patch Adh..Patch) 1 patch TRANSDERMA DAILY PRN PRN Reason: Pain Loratadine (Loratadine 10 Mg Tablet) 10 mg PO DAILY [facility] Last Admin: 06/06/25 08:56 Dose: 10 mg Magnesium Hydroxide (Milk Of Magnesia 30 Ml Oral.Susp) 30 ml PO DAILY PRN PRN Reason: Constipation Last Admin: 06/06/25 12:51 Dose: 30 ml Melatonin (Melatonin 3 Mg Tablet) 6 mg PO BEDTIME PRN PRN Reason: Insomnia Morphine Sulfate (Morphine Sulfate 4 Mg/Ml Cartridge) 4 mg IVPUSH Q4H PRN; Protocol PRN Reason: Pain, Severe (Pain Scale 7-10) Last Admin: 06/06/25 20:14 Dose: 4 mg Naloxone HCl (Naloxone Hcl 0.4 Mg/Ml Vial) 0.04 mg IVPUSH Q5M PRN PRN Reason: Excessive sedation or RR < 8 Oxycodone HCl (Oxycodone Hcl Immed Release 5 Mg Tablet) 5 mg PO Q4H PRN PRN Reason: Pain, Moderate(Pain Scale 4-6) Last Admin: 06/06/25 16:55 Dose: 5 mg Pharmacy Consult (Consult Rx Vancomycin Dosing) 1 each MISCELLANE DAILY PRN PRN Reason: Consult order Prochlorperazine Edisylate (Prochlorperazine Edisylate 10 Mg/2 Ml Vial) 5 mg IVPUSH Q6H PRN PRN Reason: Nausea and Vomiting Sodium Chloride (0.9 % Sodium Chloride Flush 3 Ml Syringe) 3 ml IVFLUSH QSHIFT [facility] Last Admin: 06/06/25 20:15 Dose: 3 ml Home Medications ?Medication ?Instructions ?Recorded ?Confirmed ?Last Taken ?Type acetaminophen 650 mg 650 mg PO Q8H PRN Anxiety 06/04/25 Unknown History tablet,extended release ferrous sulfate 325 mg (65 mg 325 mg PO DAILY 06/04/25 06/04/25 Unknown History iron) tablet fexofenadine 180 mg tablet 180 mg PO DAILY 06/04/25 Unknown History hydroxyzine HCl 25 mg tablet 25 mg PO TID PRN Anxiety 06/04/25 06/04/25 Unknown History lidocaine 5 % topical patch 1 patch topical DAILY PRN Pain 06/04/25 06/04/25 Unknown History Physical Exam 2 Vital Signs: Vital Signs: Last Vital Signs Temp 97.1 F 06/06/25 19:57 Pulse 83 06/06/25 19:57 Resp 15 06/06/25 19:57 BP 145/66 H 06/06/25 19:57 Pulse Ox 98 06/06/25 19:57 O2 Del Method Room Air 06/06/25 19:57 BMI result Body Mass Index 36.9 Const: General: cooperative HEENT: Head: Yes normal to inspection Face and sinus: Yes normal facial exam Mouth: Normal oral and palatal mucosa present Teeth and gingiva: d entition normal Eyes: General: appearance normal, both eyes and all related structures P upils: Equal, round and reactive pupils present Resp: Effort & Inspection: normal respiratory effort Cardio: Rate: regular rate Rhythm: regular rhythm GI: Palpation (GI): Soft to palpation and nontender : General: Yes no CVA tenderness Back/Spine/Pelvis: Back: no CVA tenderness Skin: General skin exam: no rashes or lesions noted Neuro: General: moves all extremities Cranial nerves: Yes Equal, round and reactive pupils present Extrem: Other: right hand wrapped but no streaking up arm Psych: Appearance: grossly normal Results Labs 06/04/25 05:28 06/06/25 05:40 Labs: BMP 06/06/25 05:40 Creatinine 0.65 Microbiology Microbiology Results: Microbiology 06/04/25 10:45 Hand Right Gram Stain - Final 06/04/25 10:45 Hand Right Routine Culture - Preliminary Streptococcus pyogenes (Grp A) Staphylococcus species 06/03/25 18:34 Hand Right Gram Stain - Final 06/03/25 18:34 Hand Right Routine Culture - Preliminary Streptococcus pyogenes (Grp A) Staphylococcus species 06/03/25 15:51 Blood - Venous Blood Culture - Preliminary Coag negative Staphylococcus 06/03/25 15:51 Blood - Venous Blood Culture - Preliminary Coag negative Staphylococcus Assessment and Plan (1) Abscess of right hand: Status: Acute (2) Cellulitis: Qualifiers: Site of cellulitis: extremity Laterality: right Status: Acute Plan Invasive Group A strep disease in hand Dont think coagulase negative staph in hand and blood true pathogen. This is not from spider Would continue Ceftriaxone 2 g IV daily. Stop Vancomycin. Clindamycin 600 mg every 8 hours further strep coverage. Duration of antibiotics to be determined,probably go home on po Augmentin for 10-14 d if OK with Hand Surgery (if surgical area doesnt look like needs intermediate accountant IV due to their evaluation of tissue planes and any nccrotic tissue. Prophylax family members with Zithromax Zpack Check HIV test.
[2025-06-06 23:53] VITALS: BP 141/71; PULSE 70; RESP 18; TEMP 36.4; O2SAT 98
[2025-06-07 03:21] VITALS: BP 141/63; PULSE 63; RESP 18; TEMP 36.4; O2SAT 97
[2025-06-07 06:25] LABS: Creatinine Clr Calc Pharmacy 93.5; Estimated Glomerular Filt Rate > 60
[2025-06-07] MEDS: oxyCODONE HCl Immed Release 5 MG TABLET PO (07:40)
[2025-06-07] MEDS: Ferrous Sulfate 324 MG TABLET.DR PO (07:40)
[2025-06-07] MEDS: 0.9 % Sodium Chloride Flush 3 ML SYRINGE IVFLUSH (07:41)
[2025-06-07 07:55] VITALS: BP 154/69; PULSE 62; RESP 16; TEMP 36.7; O2SAT 99
--- NOTE | 2025-06-07 08:00 | PM.PNORT ---
Subjective Subjective Date of Service: 06/07/25 Interval history: Postop day 3 status post right hand I and D No overnight events Patient resting in bed with mild discomfort of the right hand Physical Exam Vital Signs: Vital Signs: Last Vital Signs Temp 98.1 F 06/07/25 07:55 Pulse 62 06/07/25 07:55 Resp 16 06/07/25 07:55 BP 154/69 H 06/07/25 07:55 Pulse Ox 99 06/07/25 07:55 O2 Del Method Room Air 06/07/25 07:55 BMI result Body Mass Index 36.9 Const: General: cooperative, healthy appearing and no acute distress Resp: Effort & Inspection: normal respiratory effort and able to speak in complete sentences Cardio: Rate: regular rate Peripheral pulses: Peripheral pulses 2+ throughout GI: Palpation (GI): Soft to palpation Skin: General skin exam: no rashes or lesions noted Extrem: Other: Right hand with 2 incisions 1 on the thenar eminence and 1 on the dorsum of the hand without drainage. Mild swelling. Neurovascularly intact. Procedures Date of Service Date of Service: 06/07/25 Progress Note: A&P Assessment and plan (1) Abscess of right hand: Status: Acute Assessment and Plan: Continue IV antibiotics per medicine's recommendations Continue dry dressings daily with gauze and Ang wrap Occupational therapy for range of motion Follow up with Orthopedics 1 week after discharge Time Spent With Patient Time: Total time managing care of this patient today ____ minutes. Quality Stroke Does the patient have a stroke diagnosis?: No VTE Prior VTE?: No VTE Risk Level:: Medical - moderate - high VTE Device Contraindication: Treatment Not Indicated VTE Drug Contraindication: Treatment Not Indicated
[2025-06-07 08:06] LABS: HIV Num 1 0.06 S/CO (0.00-0.99)
--- NOTE | 2025-06-07 11:03 | PM.DS ---
DS: Providers Provider Date of Service: 06/07/25 Date of admission: 06/03/25 19:43 Date of discharge: 06/07/25 Primary care physician: ADINA Cagle Consults: 06/03/25 19:45 Consult to Orthopedics Routine Consulting Provider: [facility] [place] [facility] Reason for consultation: Right hand abscess Has provider been notified: Yes 06/06/25 09:25 Consult to Infectious Diseases Routine Consulting Provider: [facility] [place] [facility] Reason for consultation: Bacteremia DS: Diagnosis Discharge Diagnosis (1) Abscess of right hand: Status: Acute DS: Summary Hospital Course Hospital Course: from initial hpi: 44 years old woman with past medical history significant for essential hypertension, TBI, seizures, anemia on iron pills and CVA presents to the ED complaining of right hand pain and swelling that has been getting worse since Thursday. He also noted that pus was coming out from an area of the palm. She said that this started as an insect bite. She reported fever of 101. She did not report any headache, palpitations or dizziness. She did not report any acute cardiopulmonary, gastrointestinal or genitourinary symptoms. In the ED she was found with the following vital signs: Temp 96.7 degrees, heart rate 67, respiratory rate 20, BP 186/78 then 204/91. O2 sats 97 RA. Blood workup showed no leukocytosis or bandemia above left shifting. Hemoglobin is 9.1 and at baseline. Platelets are normal. There are no significant electrolyte imbalances. BUN is 12 and creatinine 0.60. Right hand CT scan with IV contrast showed an abscess fissuring 3.5 cm of the 1st digit and between the 1st and 2nd digits at the palmar aspect without evidence of osteomyelitis. ED Tx: Zosyn 3.375 g IV, vancomycin 2 g IV, morphine 4 mg IV, NS 1 L bolus, acetaminophen 1 g IV hospital course: Patient was admitted for right hand cellulitis and abscess of the thenar region. Was given IV vancomycin ceftriaxone. Was seen by Orthopedics who performed incision and drainage. Blood cultures grew coag-negative staph which was determined to likely be contaminant. Wound culture grew group a strep and MSSA. Was seen by infectious disease who recommended 10-14 days of p.o. Augmentin. Patient is feeling better will be discharged home with 10 more days of p.o. Augmentin and follow up with orthopedics. Patient was noted to be hypertensive and started on amlodipine 5 mg daily. Time Attestation Discharge Coordination Time (in mins): 34 Quality: Safe Use of Opioids Does Pt have an Active Cancer Diagnosis on the Problem List?: No Quality: Stroke Does the patient have a stroke diagnosis?: No Physical Exam Vital Signs: Vital Signs: Last Vital Signs Temp 98.1 F 06/07/25 07:55 Pulse 62 06/07/25 07:55 Resp 16 06/07/25 07:55 BP 154/69 H 06/07/25 07:55 Pulse Ox 99 06/07/25 07:55 O2 Del Method Room Air 06/07/25 07:55 BMI result Body Mass Index 36.9 Const: General: cooperative, healthy appearing and no acute distress Resp: Effort & Inspection: normal respiratory effort and able to speak in complete sentences Cardio: Rate: regular rate Peripheral pulses: Peripheral pulses 2+ throughout GI: Palpation (GI): Soft to palpation Skin: General skin exam: no rashes or lesions noted Extrem: Other: Right hand with 2 incisions 1 on the thenar eminence and 1 on the dorsum of the hand without drainage. Mild swelling. Neurovascularly intact. DS: Data Data Completed and Pending Completed studies during hospitalization [Text1]: Procedures Transfusion of Nonautologous Red Blood Cells into Peripheral Vein, Percutaneous Approach (07/13/24) Labs on day of discharge: Laboratory Results - last 24 hr 06/06/25 06/07/25 06/07/25 16:23 00:09 05:39 Hold Purple Top Creatinine 0.80 Estim Creat Clear Calc 93.5 Estimated GFR > 60 Vancomycin Trough 21.2 H HIV 1&2 Ab/P24 Ag 4thGn Nonreactive 06/07/25 05:41 Hold Purple Top SEE NOTE Creatinine Estim Creat Clear Calc Estimated GFR Vancomycin Trough HIV 1&2 Ab/P24 Ag 4thGn Preliminary micro results at discharge 06/03/25 15:51 Blood Culture - Preliminary Blood - Venous Staphylococcus hominis ssp albert 06/03/25 15:51 Blood Culture - Preliminary Blood - Venous Coag negative Staphylococcus Discharge Plan Discharge Anticipated Discharge Date/Time: 06/07/25 11:00 Patient Disposition: Home, Self-Care Discharge Diagnosis: hand abscess Referrals: Darell Webb PA [Physician Qualitative Field Coordinator, Hand Surgery] - 06/13/25 11:45 am [place], [employer] [Primary Care Provider, Medical] - 1 Week Discharge Medications: New amlodipine 5 mg Tablet 5 mg PO BEDTIME 90 Days Qty: 90 0RF Protocol: Hold for SBP< HOLD for SBP < : 90 oxycodone 5 mg Tablet 5 mg PO Q4H PRN (Reason: Pain, Moderate(Pain Scale 4-6)) Qty: 15 0RF Rx Instructions: Partial Fill upon patient request. amoxicillin-pot clavulanate 875-125 mg tablet 1 tab PO BID Qty: 20 0RF Continued fexofenadine 180 mg tablet 180 mg PO DAILY acetaminophen 650 mg tablet extended release 650 mg PO Q8H PRN (Reason: Anxiety) ferrous sulfate 325 mg (65 mg iron) tablet 325 mg PO DAILY lidocaine 5 % adhesive patch,medicated 1 patch topical DAILY PRN (Reason: Pain) hydroxyzine HCl 25 mg tablet 25 mg PO TID PRN (Reason: Anxiety) Discharge Orders: Discharge Order (Routine); Ordered 06/07/25 Ordered By: Darion Koehler Diet: Advance to usual diet Activity on Discharge: As tolerated Stand Alone Forms: Patient Portal Discharge page Print Language: Argentine Care Plan Goals: recovery Health Concerns: follow up with ortho, 10 days augmentin Plan of Treatment: Dry dressing changes daily keep hand clean and dry, ok to wash with warm soapy water Assessment: see above
--- NOTE | 2025-06-07 11:14 | MHC.CM.PN ---
Per MD rounds patient medically cleared for dc home self care. No IV abx needed on dc. Right hand w/ dry dressing. Patient reports her mother can assist w/ dressing changes. Will be sent home w/ supplies and RN will provide teaching to mother.
[2025-06-07 11:45] VITALS: BP 142/56; PULSE 68; RESP 16; TEMP 36.1; O2SAT 97
== END 2025-06-07 11:43 | disposition home or self-care (01) | DRG 383 ==
LOC: HO.ED 19:36 → HO.EDOVER 19:46 → HO.S3 06-04 11:24
PROVIDERS: Internal Medicine; Orthopaedic Surgery; Physician Assistant; Physician Assistant Medical; Admitting Provider Internal Medicine; Emergency Provider Student in an Organized Health Care Education/Training Program; PCP Registered Nurse; Visit Provider Internal Medicine
PROC: 0H9FXZZ Drainage of Right Hand Skin, External Approach (ICD-10-PCS; CPT 11044; principal; 2025-06-04 10:00)
DX: L02.511 Cutaneous abscess of right hand (principal); I69.351 Hemiplegia and hemiparesis following cerebral infarction affecting right dominant side; I10 Essential (primary) hypertension; B95.0 Streptococcus, group A, as the cause of diseases classified elsewhere; L03.113 Cellulitis of right upper limb; B95.61 Methicillin susceptible Staphylococcus aureus infection as the cause of diseases classified elsewhere; J45.20 Mild intermittent asthma, uncomplicated; Z87.820 Personal history of traumatic brain injury; Z79.899 Other long term (current) drug therapy
CPT/HCPCS: 36415; 71045; 73130; 73201; 80048; 80202; 81003; 82565; 83605; 84484; 85025; 85610; 87040; 87070; 87077; 87147; 87186; 87205; 87389; 93005; 97166; 97535; 99285; J0131; J0696; J1100; J2003; J2004; J2270; J2543; J2704; J3010; J3373; J3374; Q9967

== ENCOUNTER → 2025-06-03 15:17 | Outpatient (BNV) | payer MEDICAID, SELFPAY | PROVIDERS: Emergency Provider Student in an Organized Health Care Education/Training Program; PCP Registered Nurse; Visit Provider Radiology Diagnostic Radiology | DX: L02.511 Cutaneous abscess of right hand (principal); M79.641 Pain in right hand; M79.89 Other specified soft tissue disorders | CPT/HCPCS: 73130; 73201 ==

== ENCOUNTER 2025-06-03 19:43 | Outpatient (BNV) | payer MEDICAID, SELFPAY | END 2025-06-05 01:27 | PROVIDERS: Admitting Provider Internal Medicine; Emergency Provider Student in an Organized Health Care Education/Training Program; PCP Registered Nurse; Visit Provider Radiology Diagnostic Radiology | DX: R07.9 Chest pain, unspecified (principal) | CPT/HCPCS: 71045 ==

== ENCOUNTER 2025-06-03 19:43 | Outpatient (BNV) | payer MEDICAID, SELFPAY | END 2025-06-05 01:35 | PROVIDERS: Admitting Provider Internal Medicine; Emergency Provider Student in an Organized Health Care Education/Training Program; PCP Registered Nurse; Visit Provider Internal Medicine Cardiovascular Disease | DX: R00.1 Bradycardia, unspecified (principal) | CPT/HCPCS: 93010 ==

== ENCOUNTER → 2025-06-03 19:43 | Outpatient (BNV) | payer MEDICAID, SELFPAY | PROVIDERS: Admitting Provider Internal Medicine; Emergency Provider Student in an Organized Health Care Education/Training Program; PCP Registered Nurse; Visit Provider Physician Assistant | DX: L02.511 Cutaneous abscess of right hand (principal) | CPT/HCPCS: 10140; 99024; 99223 ==

== ENCOUNTER → 2025-06-03 19:43 | Outpatient (BNV) | payer MEDICAID, SELFPAY | PROVIDERS: Admitting Provider Internal Medicine; Emergency Provider Student in an Organized Health Care Education/Training Program; PCP Registered Nurse; Visit Provider Internal Medicine | DX: L02.511 Cutaneous abscess of right hand (principal); L03.90 Cellulitis, unspecified | CPT/HCPCS: 99223; 99231; 99232 ==